=== PATIENT | female | born 1970 | race Caucasian/White ===

== ENCOUNTER 2021-08-03 07:15 | Inpatient (IN) ==
--- NOTE | 2021-07-28 12:24 | Anesthesiology Consultation ---
Date of Service July 28, 2021 Assessment & Plan (1) Encounter for pre-operative examination: Chart Review Chart Review: Acceptable Risk for Surgery (pending preop Covid testing results ) and Patient NOT seen in Pre Admission Testing - Check BSG AM DOS Per nursing assessment 07/28/2021, patient denies any recent travel. No known Covid infection in the past 90 days. Patient is vaccinated for Covid. No known Covid positive contacts or Covid related symptoms. Preop Covid testing scheduled 08/01/21= will await results Left breast partial mastectomy 07/18/2021 = done under [facility] with LMA #4. Left breast biopsy with needle localization 07/04/2021 = done under [facility] with LMA #5. History Surgery Operation Date: 08/03/21 10:10 Proposed Procedures p Bilateral Breast Mastectomy with Left [place] Lymph Node Biopsy, Possible Left Axillary Dissection (NM Injection and Scan 0800) - Edvin Degroot, DO Height/Weight Height: 5 ft 4 in Weight: 89.811 kg Allergies Allergy/AdvReac Type Severity Reaction Status Date / Time ibuprofen Allergy Severe Anaphylaxis Verified 07/28/21 09:25 clavulanic acid Allergy Intermediate Hives Verified 07/28/21 09:25 Sulfa (Sulfonamide Allergy Intermediate HIVES Verified 07/28/21 09:25 Antibiotics) sulfamethoxazole Allergy Intermediate HIVES Verified 07/28/21 09:25 trimethoprim Allergy Intermediate HIVES Verified 07/28/21 09:25 metformin Allergy Mild Diarrhea Verified 07/28/21 09:25 Penicillins Allergy Mild Rash Verified 07/28/21 09:25 Medications Home Medications Medication Instructions Recorded Confirmed Last Taken ezetimibe 10 mg tablet 10 mg PO QAM 05/22/21 07/28/21 07/18/21 08:00 insulin lispro 100 unit/mL 5 unit SUBCUT QAM 05/22/21 07/28/21 07/17/21 subcutaneous pen (Humalog KwikPen (U-100) Insulin) levothyroxine 50 mcg tablet 50 mcg PO QAM 05/22/21 07/28/21 07/18/21 08:00 linagliptin 5 mg tablet (Tradjenta) 5 mg PO QAM 05/22/21 07/28/21 07/18/21 08:00 losartan 100 mg tablet 100 mg PO QAM 07/10/3107/28/21 07/18/21 08:00 lovastatin 40 mg tablet 40 mg PO HS 05/22/21 07/28/21 07/17/21 montelukast 10 mg tablet 10 mg PO HS 05/22/21 07/28/21 07/17/21 pantoprazole 40 mg tablet,delayed 40 mg PO QAM 05/22/21 07/28/21 07/18/21 08:00 release paroxetine HCl 10 mg tablet 10 mg PO QAM 05/22/21 07/28/21 07/18/21 08:00 paroxetine HCl 40 mg tablet 40 mg PO QAM 05/22/21 07/28/21 07/18/21 08:00 pregabalin 150 mg capsule 150 mg PO TID 05/22/21 07/28/21 07/18/21 08:00 ropinirole 0.5 mg tablet 0.5 mg PO 05/22/21 07/28/21 07/17/21 albuterol sulfate 2.5 mg INHALATION Q4H PRN 05/24/21 07/28/21 Unknown aspirin 81 mg tablet,delayed 81 mg PO QA 05/24/21 07/28/21 07/18/21 08:00 release loratadine 10 mg capsule 10 mg PO QA 05/24/21 07/28/21 07/18/21 08:00 albuterol sulfate 90 mcg/actuation 2 puff INHALATION QID PRN 06/23/21 07/28/21 Unknown aerosol inhaler oxycodone 5 mg tablet 5 - 10 mg PO Q4H #15 tab 07/18/21 07/28/21 Unknown insulin detemir U-100 100 unit/mL 25 unit SUBCUT [facility] 07/28/21 07/28/21 Unknown subcutaneous solution (Levemir U-100 Insulin) Past Medical History Medical History Allergic rhinitis Asthma LAST USED INHLAER>6 MONTHS AGO Atypical ductal hyperplasia of left breast plan to do bilateral mastectomy Depression Diabetes mellitus, type 2 Fatty liver Fibromyalgia GERD (gastroesophageal reflux disease) Hx of seizure disorder LAST EPISODE 2005 (NO NEUROLOGIST) Hyperlipidemia Hypertension Hypothyroidism IBS (irritable bowel syndrome) Restless leg syndrome Temporomandibular joint disorder NO LOCKING Past Family History Family History Mother Breast cancer Grandmother (Maternal) Breast cancer Father Diabetes Heart disease Hypertension Other No family history of adverse response to anesthesia Past Surgical History Surgical History Amputated toe LEFT FOOT SMALL TOE R/T INFECTION H/O breast surgery left 11/11/2013 benign/clip placement H/O sinus surgery MULTIPLE TIMES History of arthroscopy RT KNEE History of cardiac cath 25 YEARS AGO (NO STENTS) History of carpal tunnel surgery LEFT/RT History of colonoscopy History of esophagogastroduodenoscopy (EGD) History of hysterectomy History of partial mastectomy of left breast (07/18/21) Left Breast Partial Mastectomy Dr. Degroot 07-18-2021 History of tooth extraction Hx of elbow surgery RT/LEFT ULNAR NERVE RELEASE S/P breast biopsy, left (07/04/21) Left Breast Biopsy with Wire Localization(Left) - Edvin Degroot, DO Social History Smoking Status: Never smoker Do You Dip or Chew Tobacco: No Hx Alcohol Use: No Alcohol type: wine alcohol intake frequency: holidays/special occasions only Hx Substance Use: No substance use type: does not use Lab Results Anesthesia Preop Results Results Anesthesia Widget: WBC 11.95 K/uL (4.8-10.8) H 06/21/21 Hgb 16.3 g/dL (12.0-16.0) H 06/21/21 Hct 46.6 % (37-47) 06/21/21 Plt 299 K/uL (130-400) 06/21/21 Na 135 mmol/L (136-145) L 06/21/21 K 4.1 mmol/L (3.5-5.1) 06/21/21 Cl 105 mmol/L (98-107) 06/21/21 CO2 25 mmol/L (21-32) 06/21/21 BUN 11 mg/dl (7-18) 06/21/21 Creat 0.75 mg/dl (0.6-1.2) 06/21/21 Glucose Level 331 mg/dl (70-99) H* 06/21/21 POC Glucose 260 mg/dl (70-99) H 07/18/21 Testing Laboratory Results -Glucose ranging 189-296 from 07/04/21 to 07/18/21 Pt with hyperglycemia- patient has had recent left partial mastectomy and left needle localization biopsy without issues- per previous anesthesia consultations- glucose will need monitored closely during perioperative period Electrocardiogram Date: 06/21/21 Findings: + NSR @ (89 bpm)
[~2021-08-03 07:15] MED LIST: LACTATED RINGER'S 1,000 ML IV SCH; LR 15ML/HR IV SCH; ceFAZolin 2000MG 2,000 MG/15 ML SYR IV SCH
--- NOTE | 2021-08-03 10:06 | Nuclear Medicine Report ---
LYMPHOSCINTIGRAPHY CLINICAL HISTORY: Left breast cancer. PROCEDURE: Using standard sterile technique, 5 intradermal injections of 0.51 mCi of Lymphoseek was p laced in the left breast. The patient tolerated the procedure well. There were no immediate complicat ions. The patient was subsequently transported to the surgical suite. No imaging was obtained at the referring physician's request. IMPRESSION: Injection of 2.55 mCi of Lymphoseek in the left breast. ACT 112: Negative or not required by law. Electronically signed by: Ruben Tinsley M.D. 08/03/2021 10:05 AM
[2021-08-03] MEDS ORDERED: LIDOCAINE 2% 2 ML VIAL/AMP(20MG/ML) INFIL ONE (10:11)
[2021-08-03] MEDS ORDERED: ONDANSETRON INJ 2 MG/ML 2 ML VIAL ONE ×2 (10:11→12:46)
[2021-08-03] MEDS ORDERED: PROPOFOL IV EMULSION 10 MG/ML 20 ML VIAL IV ONE (10:11)
[2021-08-03] MEDS ORDERED: DEXAMETHASONE SOD INJ 4 MG/ML VIAL ONE (10:11)
[2021-08-03] MEDS ORDERED: MIDAZOLAM HCL 1 MG/ML 2ML VIAL ONE (10:12)
[2021-08-03] MEDS ORDERED: fentaNYL citrate 100 MCG/2 ML VIAL ONE (10:12)
[2021-08-03] MEDS ORDERED: INSULIN ASPART PER UNIT SC STA (10:32)
[2021-08-03] MEDS ORDERED: HYDROmorphone INJ 1 MG/ML SYRINGE IV PRN (10:52)
[2021-08-03] MEDS ORDERED: ePHEDrine sulfate 50 MG/ML AMP IV PRN (10:52)
[2021-08-03] MEDS ORDERED: fentaNYL citrate 100 MCG/2 ML VIAL IV PRN (10:52)
[2021-08-03] MEDS ORDERED: ATROPINE SULFATE 0.1 MG/ML 10ML SYR IV PRN (10:52)
[2021-08-03] MEDS ORDERED: ONDANSETRON INJ 2 MG/ML 2 ML VIAL IV PRN ×2 (10:52→17:24)
[2021-08-03] MEDS ORDERED: BUPIVACAINE 0.25% 30 ML VIAL ONE (10:57)
--- NOTE | 2021-08-03 11:15 | History & Physical Bridge Note ---
Date of Service August 03, 2021 History & Physical Bridge Note I have examined the patient, reviewed the History & Physical and in the interval since the performance of the History & Physical I have noted the following changes of clinical significance: no changes noted
[2021-08-03] MEDS ORDERED: PHENYLEPHRINE 100MCG/ML 5ML SYR ONE ×2 (12:46→13:29)
[2021-08-03] MEDS ORDERED: HYDROmorphone INJ 2 MG/ML SYR/VIAL ONE (13:21)
[2021-08-03] MEDS ORDERED: EPINEPHrine INJ 1 MG/ML AMP INJ ONE (14:25)
[2021-08-03] MEDS ORDERED: ROCURONIUM BROMIDE 10 MG/ML 5 ML VIAL IV ONE (14:29)
[2021-08-03] MEDS ORDERED: GLYCOPYRROLATE 0.2 MG/ML VIAL ONE (14:29)
[2021-08-03] MEDS ORDERED: NEOSTIGMINE METHYLSULFATE 1 MG/ML 10ML VIAL ONE (14:29)
--- NOTE | 2021-08-03 15:00 | Post Operative Brief Note ---
PG Immediate Post Op with CF Date of Surgery August 03, 2021 Pre & Post Diagnosis Operation Date: 08/03/21 11:10 Pre-Op Diagnosis: Ductal Carcinoma in Situ of Left Breast Post-Op Diagnosis: Ductal Carcinoma in Situ of Left Breast I identified the patient and participated in the time-out.: Yes Procedure Operation Date: 08/03/21 11:10 Actual Procedures p Bilateral Breast Mastectomy with Left [place] Lymph Node Biopsy(Bilateral) - Edvin Degroot DO Surgeon Edvin Degroot DO [employer] Milton Cardoso PA-C Estimated Blood Loss 100 Findings Consistent with Post-Op Diagnosis Specimens Specimen Description: Fresh A. Right breast; long silk lateral, short silk superior. Out of body at 1242, sent to lab at 1248. B. Left Breast; long silk lateral, short silk superior. Out of body at 1356, sent to lab at 1401. C. Left Axillary [place] Lymph Node Biopsy; sent to lab at 1401. D. Left Axillary [place] Lymph Node Biopsy #2; sent to lab at 1414. Drains Edvin Drain (bilateral breast) Anesthesia Type General Complications none Disposition Disposition: Recovery Room
--- NOTE | 2021-08-03 15:02 | Operative Report ---
PG Post Operative Report Pre & Post Diagnosis Operation Date: 08/03/21 11:10 Pre-Op Diagnosis: Ductal Carcinoma in Situ of Left Breast Post-Op Diagnosis: Ductal Carcinoma in Situ of Left Breast I identified the patient and participated in the time-out.: Yes Procedure Operation Date: 08/03/21 11:10 Actual Procedures p Bilateral Breast Mastectomy with Left [place] Lymph Node Biopsy(Bilateral) - Edvin Degroot DO Surgeon Edvin Degroot DO Supervisor Finishing Milton Cardoso PA-C Estimated Blood Loss 100 Findings Consistent with Post-Op Diagnosis Specimens Specimen Description: Fresh A. Right breast; long silk lateral, short silk superior. B. Left Breast; long silk lateral, short silk superior. C. Left Axillary [place] Lymph Node Biopsy, Blue and Hot 132 D. Left Axillary [place] Lymph Node Biopsy #2, Blue and Hot 43 Drains 19 Fr Edvin drain in both mastectomy sites Anesthesia Type General Complications none Disposition Disposition: Recovery Room Indications 51 yo female with strong family history of breast cancer, DCIS of left breast with positive margins on lumpectomy Description of Procedure The patient was brought to the OR and placed in the supine position with both arms abducted. At this time she underwent general endotracheal anesthesia without any problems. She was given appropriate pre-operative antibiotics. Lymphazurin was injected in a periareolar manner in the left breast prior to skin prep. Her bilateral chest and left axilla were prepped and draped in the usual sterile fashion. Timeout was called. The procedure was verified as Bilateral Total Mastectomy with Left axillary sentinel lymph node biopsy. Surgical, anesthesia and nursing teams agreed and the procedure was begun. A transverse elliptical incision was made on the right breast to include the nipple areolar complex. This was carried down the the subcutaneous tissue with electrocautery. At this point skin flaps were raised with electrocautery superiorly to the clavicle, medially to the sternum, inferiorly to the inframammary fold, and laterally to the latissimus. The breast tissue was then removed from the pectoralis major muscle along the with fascia. The breast was then transected laterally and sent of as specimen. At this point the left breast was removed in the same manner as the right breast. Then our attention was turned to the left axilla for the sentinel lymph node biopsy. The neoprobe was placed into the axilla and a hot and blue node was found and count was 132. This was excised sharply and sent as specimen. At this point one other lymph nodes was found using the neoprobe. Second was hot but and blue and count was 43. Placing the neoprobe in the axilla at this point revealed a count of 2. At this time the incisions were irrigated until clear. Hemostasis was achieved using electrocautery. Hemostasis was complete. A #19 [place] Edvin drain was introduced through a stab incision laterally on the lower skin flap of each incision. They were placed along the inferior and superior skin flap. At this time the incisions were closed using 3-0 Vicryl suture at the deep dermal layer and 4-0 Monocryl in a running subcutaneous fashion in the skin. Dermabond Prineo dressing was applied. Sterile dressing was then placed over this and surgical bra. The patient was then awakened from anesthesia and extubated having remained stable throughout the entire case. Needle and sponge count were correct x 2. The physician's chiropractor assistant was present and scrubbed for the entire case. He was essential for positioning, prepping and draping the patient, retraction and exposure, closure of the incision and placement of the dressings. I attest to the content of the Intraoperative Record and any orders documented therein. Any exceptions are noted below.
--- NOTE | 2021-08-03 15:23 | XRay Report ---
XR chest 1V portable INDICATION: MN ^Y ^WRONG COUNT ^EXTRA COUNT/WRONG COUNT. TECHNIQUE: Single frontal radiograph of the chest was obtained. Comparison: None available at the time of this dictation. FINDINGS: Endotracheal tube is seen with the tip 47 mm from the manasa. Bilateral drains are seen over the ches t. No radiodense foreign bodies seen. The cardiomediastinal silhouette is normal. The lungs are clear . No evidence of pleural effusion or pneumothorax. IMPRESSION: No radiodense foreign bodies apart from endotracheal tube and bilateral drains. ACT 112: Negative or not required by law. Electronically signed by: Ruben Tinsley M.D. 08/03/2021 3:22 PM
--- NOTE | 2021-08-03 15:57 | Anesthesiology Progress Note ---
Date of Service August 03, 2021 Anesthesia Post Procedure Vital Signs Vital Signs: Temp Pulse Resp BP Pulse Ox 08/03/21 15:50 108 H 18 133/77 95 08/03/21 15:40 106 H 18 127/78 99 08/03/21 15:33 36.4 C L 102 H 20 143/71 H 99 08/03/21 10:03 36.6 C 93 H 20 142/76 H 96 Transfer of Care Handoff Completed per policy Notes Mental Status: alert / awake / arousable and participated in evaluation Patient Amnestic to Procedure: Yes Nausea / Vomiting: adequately controlled Pain: adequately controlled Airway Patency, RR, SpO2: stable & adequate BP & HR: stable & adequate Hydration State: stable & adequate Anesthetic Complications: no major complications apparent and Pt Satisfied with anesthetic care
[2021-08-03] MEDS ORDERED: MoRPHine SULFATE 2 MG/ML CARP IV PRN (17:24)
[2021-08-03] MEDS ORDERED: GLUCOSE 40% GEL 15 GM TUBE PO PRN (17:24)
[2021-08-03] MEDS ORDERED: ALBUTEROL 0.083% NEBU SOLN 3 ML VIAL INH PRN (17:24)
[2021-08-03] MEDS ORDERED: GLUCAGON FOR INJ 1 MG VIAL SQ PRN (17:24)
[2021-08-03] MEDS ORDERED: CARBOHYDRATES FOR HYPOGLYCEMIA PO PRN (17:24)
[2021-08-03] MEDS ORDERED: DEXTROSE 50% 50 ML SYRINGE IV PRN (17:24)
[2021-08-03] MEDS ORDERED: MoRPHine SULFATE 4 MG/ML 1 ML CARP\\VIAL IV PRN (17:24)
[2021-08-03] MEDS ORDERED: GLUCOSE 10 TABS/TUBE PO PRN (17:24)
[2021-08-03] MEDS ORDERED: ALBUTEROL HFA 8 GM INHALER INH PRN (17:24)
[2021-08-03] MEDS: oxyCODONE HCL IR 5 MG TAB (IMMEDIATE RELEASE) PO PRN (18:01)
[2021-08-03] MEDS ORDERED: Nursing to Pharmacy Communication SCH (18:15)
[2021-08-03] MEDS ORDERED: LACTATED RINGER'S 1,000 ML IV SCH (18:15)
--- NOTE | 2021-08-03 18:19 | Hospitalist Consultation ---
Date of Consultation August 03, 2021 Assessment & Plan (1) Ductal carcinoma in situ (DCIS) of left breast: s/p prophylactic bilateral mastectomy and ln biopsy 08/03/21 Dr Degroot patient had initial ductal carcinoma in situ in her left breast decision for prophylactic mastectomy was made after discussion in the office post op labs not checked yet will be checked in am blood pressure is stable (2) Diabetes: will be on basal bolus insulin, glycemic management consult hold Tradjenta pt did not take typical am Levemir this am, discussed with pharmacy will give long-acting insulin tonight and resume her long-acting insulin in the morning (3) Hypertension: continue losartan (4) Chronic depression: paroxetine continues (5) Asthma: stable with albuterol and singulair (6) Hypothyroidism: continue levothyroxine (7) DVT prophylaxis: Patient has sCDs in place certainly chemoprophylaxis would be indicated if she is a more prolonged hospital stay and after hemostasis is assured History of Present Illness Attending Physician: Edvin Degroot, DO History of Present Illness 51 F s/p B/L mastectomy and sentinel node biopsy for atypical ductal hyperplasia. Pt has a history of diabetes and htn. Depression and asthma. Patient initially presented to general surgery after abnormal mammogram in May 2021. Patient had an excisional biopsy found to have atypical ductal hyperplasia recommendation for further excision of the abnormal tissue of the left breast and then in July 04 she underwent breast biopsy with needle localization those results revealed ductal carcinoma in situ patient had persistent positive margins despite 2 surgeries and decision was made to perform a bilateral mastectomy prophylactically given strong family history. Patient would likely still need to have oncological follow-up when she is healed she usually is on basal bolus insulin pus tradjenta for her diabetes losartan for htn and secondary to protect renal function with her diabetes albuterol and Singulair for her asthma paroxetine for depression she is stable post operatively Allergies Allergy/AdvReac Type Severity Reaction Status Date / Time ibuprofen Allergy Severe Anaphylaxis Verified 08/03/21 10:23 clavulanic acid Allergy Intermediate Hives Verified 08/03/21 10:23 Sulfa (Sulfonamide Allergy Intermediate HIVES Verified 08/03/21 10:23 Antibiotics) sulfamethoxazole Allergy Intermediate HIVES Verified 08/03/21 10:23 trimethoprim Allergy Intermediate HIVES Verified 08/03/21 10:23 metformin Allergy Mild Diarrhea Verified 08/03/21 10:23 Penicillins Allergy Mild Rash Verified 08/03/21 10:23 Home Medications Medication Instructions Recorded Confirmed Type ezetimibe 10 mg tablet 10 mg PO QAM 05/22/21 08/03/21 History insulin lispro 100 unit/mL 5 unit SUBCUT QAM 05/22/21 08/03/21 History subcutaneous pen (Humalog KwikPen (U-100) Insulin) levothyroxine 50 mcg tablet 50 mcg PO QAM 05/22/21 08/03/21 History linagliptin 5 mg tablet (Tradjenta) 5 mg PO QAM 05/22/21 08/03/21 History losartan 100 mg tablet 100 mg PO QAM 05/22/21 08/03/21 History lovastatin 40 mg tablet 40 mg PO HS 05/22/21 08/03/21 History montelukast 10 mg tablet 10 mg PO HS 05/22/21 08/03/21 History pantoprazole 40 mg tablet,delayed 40 mg PO QAM 05/22/21 08/03/21 History release paroxetine HCl 10 mg tablet 10 mg PO QAM 05/22/21 08/03/21 History paroxetine HCl 40 mg tablet 40 mg PO QAM 05/22/21 08/03/21 History pregabalin 150 mg capsule 150 mg PO TID 05/22/21 08/03/21 History ropinirole 0.5 mg tablet 0.5 mg PO HS 05/22/21 08/03/21 History albuterol sulfate 2.5 mg INHALATION Q4H PRN 05/24/21 08/03/21 History aspirin 81 mg tablet,delayed 81 mg PO QAM 05/24/21 08/03/21 History release loratadine 10 mg capsule 10 mg PO QAM 05/24/21 08/03/21 History albuterol sulfate 90 mcg/actuation 2 puff INHALATION QID PRN 06/23/21 08/03/21 History aerosol inhaler oxycodone 5 mg tablet 5 - 10 mg PO Q4H #15 tab 07/18/21 08/03/21 Rx insulin detemir U-100 100 unit/mL 25 unit SUBCUT QAM 07/28/21 08/03/21 History subcutaneous solution (Levemir U-100 Insulin) Patient History Medical History (Updated 08/03/21 @ 18:45 by Alexander Ziegler MD) Allergic rhinitis Asthma LAST USED INHLAER>6 MONTHS AGO Atypical ductal hyperplasia of left breast plan to do bilateral mastectomy Depression Diabetes mellitus, type 2 Fatty liver Fibromyalgia GERD (gastroesophageal reflux disease) Hx of seizure disorder LAST EPISODE 2005 (NO NEUROLOGIST) Hyperlipidemia Hypertension Hypothyroidism IBS (irritable bowel syndrome) Restless leg syndrome Temporomandibular joint disorder NO LOCKING Surgical History Amputated toe LEFT FOOT SMALL TOE R/T INFECTION H/O breast surgery left 11/11/2013 benign/clip placement H/O sinus surgery MULTIPLE TIMES History of arthroscopy RT KNEE History of cardiac cath 25 YEARS AGO (NO STENTS) History of carpal tunnel surgery LEFT/RT History of colonoscopy History of esophagogastroduodenoscopy (EGD) History of hysterectomy History of partial mastectomy of left breast (07/18/21) Left Breast Partial Mastectomy Dr. Degroot 07-18-2021 History of tooth extraction Hx of elbow surgery RT/LEFT ULNAR NERVE RELEASE S/P breast biopsy, left (07/04/21) Left Breast Biopsy with Wire Localization(Left) - Edvin Degroot, Family History Mother Breast cancer Grandmother (Maternal) Breast cancer Father Diabetes Heart disease Hypertension Other No family history of adverse response to anesthesia Social History Smoking Status: Never smoker Second Hand Exposure: No; Do You Dip or Chew Tobacco: No; Tobacco Cessation Education Requested by Patient: No Hx Alcohol Use: No Hx Substance Use: No Preferred Language: Kazakh Communication Ability: Effective Landscape Specialist Required: No Beliefs That Will Affect Care: None marital status: Current Living Situation: Spouse current occupational status: disabled Other Information That Helps Us Care for You: No Feels Safe at Home: Yes Safety Concerns: Feels Safe At This Time Assistive Devices: None Review of Systems Review of Systems: Moderate distress due to chest wall pain and fatigue no headache, no visual changes no speech or swallowing issues Pleuritic chest wall pain, no chest pressure or palpitations no shortness of breath, cough or wheezes no abdominal pain, nausea or vomiting, diarrhea or constipation no dysuria, hematuria or frequency no focal joint pain or swelling no back pain, CVA tenderness or radicular pain Patient has bandages on her surgical sites no focal signs of weakness or numbness or altered sensation no complaints of anxiety or depression.. Physical Exam Physical Exam: The patient appeared well nourished and normally developed. Vital signs as documented. Head exam is normocephalic atraumatic Neck is without JVD, thyromegaly, or carotid bruits. Lungs are clear to auscultation, no focal loss of breath sounds Cardiac exam, Rhythm is regular.. No murmurs, rubs or gallops. Abdominal exam reveals normal bowel sounds, soft non tender, no masses Extremities are nonedematous and both pedal pulses are present Neurologic exam is alert and oriented, no focal loss of strength or sensation Psychologically is without concerns for anxiety or depression Results & Data Results & Data ([facility]) Vital Signs (Past 12 Hours) Vital Signs Temp Pulse Resp BP Pulse Ox 08/03/21 17:46 97.9 F 104 H 16 137/75 95 08/03/21 17:15 97.7 F 111 H 16 145/73 H 94 08/03/21 16:45 110 H 16 142/73 H 94 08/03/21 16:30 109 H 16 148/74 H 94 08/03/21 16:20 97.5 F L 108 H 16 143/72 H 96 08/03/21 16:10 108 H 18 155/68 H 95 08/03/21 16:00 106 H 18 134/74 95 08/03/21 15:50 108 H 18 133/77 95 08/03/21 15:40 106 H 18 127/78 99 08/03/21 15:33 97.5 F L 102 H 20 143/71 H 99 08/03/21 10:03 97.9 F 93 H 20 142/76 H 96 PG Care Time/CCT Total # of Minutes Spent Total Time Spent with Patient: Total time spent is greater than 50% in coordination of care (as documented) at patient's floor/unit and/or counseling patient: Coding Level of Care Code 47939 Inpt Consult Level 3 Diagnoses Ductal carcinoma in situ (DCIS) of left breast D05.12 Diabetes E11.9 Hypertension I10 Chronic depression F32.9 Asthma J45.909 Hypothyroidism E03.9 DVT prophylaxis Z29.9
[2021-08-03] MEDS ORDERED: PHARMACY GLYCEMIC MGMT CONSULT PRN (18:26)
[2021-08-03] MEDS: INSULIN ASPART 100 UNITS/ML 3 ML PEN SC SCH ×2 (18:29→20:48)
[2021-08-03] MEDS ORDERED: INSULIN GLARGINE SOLOSTAR 100 UNITS/ML 3 ML PEN SC STA (19:01)
--- NOTE | 2021-08-03 19:38 | Pharmacy Report ---
Pharmacy Glycemic Short Note 2 - Date of Service August 03, 2021 - Glycemic Short BSG Results (Last 24 hours): 08/03/21 08/03/21 08/03/21 09:55 09:57 12:02 POC Glucose 331 H* 319 H* 311 H* 08/03/21 08/03/21 08/03/21 12:30 13:12 15:36 POC Glucose 256 H 280 H 203 H 08/03/21 17:43 POC Glucose 267 H OUTPATIENT ANTIDIABETIC REGIMEN: * Levemir 25 units qam * Humalog 5 units qam * Tradjenta 5mg qam ASSESSMENT: * Patient s/p B/L mastectomy and sentinel node biopsy * Provider and RN confirmed with patient that she did not take her levemir this morning. Patient did tolerate a clear liquid diet for dinner * RN confirmed that dexamethasone was not given in the OR * Will administer home basal dose X 1 tonight with a moderate stress novolog scale and monitor BSG trends with overnight checks PLAN FOR INPATIENT GLYCEMIC CONTROL: * Hold outpatient oral diabetes medications * Basal insulin * Lantus 25 units SQ X 1 * Bolus insulin * NovoLog per scale ACHS or Q6hrs while NPO * Goal Range: Low 110 mg/dL - High 140 mg/dL * Correction Factor: 20 mg/dL/unit * Nutritional / Prandial insulin per carb ratio of 1 unit per 9 grams CHO consumed PLAN FOR DISCHARGE: *
[2021-08-03] MEDS: PREGABALIN 150 MG CAP PO SCH (20:22)
[2021-08-03] MEDS: rOPINIRole HCL 0.25 MG TABLET PO SCH (20:23)
[2021-08-03] MEDS: MONTELUKAST SODIUM 10 MG TABLET PO SCH (20:23)
[2021-08-04] MEDS ORDERED: PROMETHAZINE HCL 12.5 MG in SODIUM CHLORIDE 0.9% 50 ML IV STA (00:53)
[2021-08-04] MEDS: ACETAMINOPHEN 325 MG TAB PO PRN (02:24)
[2021-08-04 02:44] LABS: Hematocrit (blood only) 36.2 % (37-47); Hemoglobin 12.2 g/dL (12.0-16.0)
--- NOTE | 2021-08-04 03:20 | Communication Note ---
Date of Service: August 04, 2021 I was notified by nursing that patient had persistently elevated blood glucose levels. Patient's chart was reviewed and hospitalist consultation has been obtained along with a glycemic consult by pharmacy. I did discuss with the radar engineer pharmacist and he has attempted to cover the patient with sliding scale insulin however due to patient's persistent elevated glucose he feels an insulin drip is now required which is in the process of being initiated. Nursing also noted the patient had an episode of hypotension and has tachycardia. Patient was visited at the bedside at the present time she denies any shortness of breath or chest pain. She does feel somewhat weak. Patient drains were examined and she has some serosanguineous drainage from each drain. Repeat hemoglobin and hematocrit was performed. Hemoglobin and hematocrit were noted to be 12.2 and 36.2. Does not appear the patient is actively bleeding at this time. Her tachycardia and hypotension could be multifactorial from recent surgical procedure as well as some acute blood loss. Her hyperglycemia could also be contributing to this. We will continue to monitor her closely.
[2021-08-04] MEDS ORDERED: STAT IV Infusion **Titration per Protocol STA (03:28)
[2021-08-04] MEDS ORDERED: INSULIN HUMAN REGULAR IV BOLUS 3.5 UNITS in SYRINGE 0 ML IV ONE (03:30)
[2021-08-04] MEDS ORDERED: INSULIN REGULAR 250 UNITS in SODIUM CHLORIDE 0.9% 247.5 ML IV SCH (03:30)
[2021-08-04 03:44] LABS: Beta-Hydroxybutyrate 2.41 mg/dl (0.2-2.81)
[2021-08-04] MEDS: PANTOprazole 40 MG TAB PO SCH (07:25)
[2021-08-04] MEDS: PARoxetine HCL 10 MG TAB PO SCH (07:25)
[2021-08-04] MEDS: LORATADINE 10 MG TAB PO SCH (07:25)
[2021-08-04] MEDS: ASPIRIN 81 MG ECTAB PO SCH (07:25)
[2021-08-04] MEDS: LEVOTHYROXINE SODIUM 50 MCG TABLET PO SCH (07:25)
[2021-08-04] MEDS: PREGABALIN 150 MG CAP PO SCH ×3 (07:27→21:04)
[2021-08-04] MEDS: oxyCODONE HCL IR 5 MG TAB (IMMEDIATE RELEASE) PO PRN ×2 (07:27→23:24)
[2021-08-04] MEDS ORDERED: INSULIN ASPART 100 UNITS/ML 3 ML PEN SC SCH ×2 (07:30)
[2021-08-04 07:36] LABS: Basophils # (auto) 0.01 K/uL (0-0.2); Hematocrit (blood only) 35.7 % (37-47); Hemoglobin 11.9 g/dL (12.0-16.0); Immature Granulocytes # (auto) 0.11 K/uL (0.00-0.02); Immature Granulocytes % (auto) 0.5 %; Lymphocytes # (auto) 1.92 K/uL (1.2-3.4); Lymphocytes % (auto) 8.9 %; Mean Corpuscular Hemoglobin 29.6 pg (25-34); Mean Corpuscular Hgb Conc 33.3 g/dL (32-36); Mean Corpuscular Volume 88.8 fL (80-100); Monocytes # (auto) 2.06 K/uL (0.11-0.59); Monocytes % (auto) 9.5 %; Neutrophils # (auto) 17.49 K/uL (1.4-6.5); Neutrophils % (auto) 81.1 %; Platelet Count 289 K/uL (130-400); RDW Coefficient of Variation 12.9 % (11.5-14.5); RDW Standard Deviation 41.7 fL (36.4-46.3); Red Blood Count 4.02 M/uL (4.2-5.4); White Blood Count 21.59 K/uL (4.8-10.8)
[2021-08-04] MEDS ORDERED: INSULIN GLARGINE SOLOSTAR 100 UNITS/ML 3 ML PEN SC ONE ×2 (08:00→13:00)
[2021-08-04] MEDS: LACTATED RINGER'S 1,000 ML IV SCH ×2 (08:11→18:11)
--- NOTE | 2021-08-04 08:17 | Hospitalist Progress Note ---
Date of Service August 04, 2021 Assessment & Plan (1) Hematoma: Plan: POD# 1 s/p bilateral mastectomy with Dr Degroot. Pre-op hgb 16.3 --> 12.2 --> 11.9 developed hypotension/tachycardia overnight with lightheadedness/dizziness IVF bolus provided, increased IVF rate to 100cc/hr Increased APRIL output and hematoma to L breast Taken back to OR this morning with Dr Degroot for evacuation of LEFT BREAST hematoma, stop of small arterial bleeder seen inferiorly within the pectoralis muscle as well as placement of new jomar drain to L side Given ancef for abx pre-op but discussed with surgery and they plan on a couple of weeks of Keflex given prior infection but suspected elevated WBC (21.5k) from stress/bleeding/surgery and no concerns for infections at this time Procalcitonin pending --> ELEVATED AT 5.7. Continuing on Ancef Of note, BSGs elevated overnight and patient was placed on insulin gtt (hadn't taken her AM insulin prior to surgery) with improvement of sugars. Continues on insulin gtt and pharmacy on consult. Continue to monitor BP 94/57 currently and asked RN to provide additional IVF bolus but if remains hypotensive will consider moving to med-[facility] for closer monitoring Continue to monitor blood counts (2) Acute blood loss anemia: Plan: 2nd to sugery and hematoma as above repeat hgb 10.6/32 from hgb 11.9 but has also received multiple IVF bolus as well Iron checked -- low at 18. Ordered IV Venofer x 1 now. Would repeat tomorrow and have f/u heme-onc for 3rd dose if d/c tomorrow however suspect patient could complete course while inpatient Continue to monitor APRIL output/blood counts closely CBC in AM (3) Tachycardia: Plan: 2nd to bleeding/pain/iron deficiency anemia no sob/cp reported given 2.5mg metoprolol for elevated HR but currently 122bpm (regular) Giving additional IVF bolus for hypotension but considering moving to monitored bed for closer monitoring (4) Hypotension: Plan: IVF bolus as above, increased maintenence fluids Continue to monitor (5) Ductal carcinoma in situ (DCIS) of left breast: Plan: POD 1 s/p prophylactic bilateral mastectomy and ln biopsy 08/03/21 Dr Degroot patient had initial ductal carcinoma in situ in her left breast decision for prophylactic mastectomy was made after discussion in the office See above regarding post-op hematoma/hypotension/tachycardia (6) Diabetes: Plan: will be on basal bolus insulin, glycemic management consult hold Tradjenta pt did not take typical am Levemir AM prior to surgery A1c elevated to 12.9 Placed on insulin gtt overnight for persistently elevated BSGs up to 447 around 2AM Pharmacy on consult Sugars still elevated but improved slightly -- discussed given continued elevation and just given additional 10u b-hydroxybuytrate not elevated, no kussmal breathing or acidosis on labs IVF as above Consulted primary special educator Continue to monitor (7) Hypertension: Plan: continue losartan --> HOLDING for hypotension Continue to monitor (8) Chronic depression: Plan: paroxetine continues (9) Asthma: Plan: stable with albuterol and singulair stable on room air (but placed on O2 for comfort) (10) Hypothyroidism: Plan: continue levothyroxine will check TSH in AM (11) DVT prophylaxis: Plan: Patient has sCDs in place certainly chemoprophylaxis would be indicated if she is a more prolonged hospital stay and after hemostasis is assured --> continuing SCDs and avoiding chemoproph in setting of bleeding as above Continued inpatient stay Plan: Changed to full admission as above Continue to follow while inpatient Admission and Anticipated Discharge Date Admission Date: August 03, 2021 Supervising Physician Co-Signing Physician Notes Attending Attestation - Chart reviewed in detail, care plan d/w JORGE Dawson. I agree w/ the quinn components of her documentation. Salbador Craven MD Subjective This morning patient with hypotension/tachycardia after getting up to BSC. IVF bolus given and increased rate to 100cc/hr. Reported lightheadedness/dizziness but no LOC. Urinary retention and garrett placed. Elevated BSGs (improved after being placed on insulin gtt and pharmacy following). Increased pain and APRIL drainage of bloody output -- APRIL 375cc L breast, 120cc R breast. Eval by surgery and taken back to OR for hematoma evacuation and stop of pec major bleed along with placement of new jomar drain to L side. Of note, had episode of 100cc green liquid emesis on arrival to [facility] with BSG 241. Discussed with general surgery and WBC elevation felt to be stress from surgery/blood loss but plans for couple weeks of keflex. Patient returned from PACU to room 376-2 after getting dose of 2.5mg metoprolol for elevated HR. Pain currently controlled. APRIL to L breast with 15cc bloody drainage. Denies lightheadedness/dizziness/chest pain/shortness of breath and is currently 93% on room air. Pain controlled with ordered medications. BP hypotensive with 94/57 with HR 122bpm(regular). Discussed with RN and if patient remain hypotensive after additional bolus and no improvement in HR will consider moving to med-tele. Garrett draining yellow urine. Review of Systems Review of Systems: All systems reviewed & are unremarkable except as noted in HPI & below Physical Exam Physical Exam: well developed, well nourished however very fatigued and just coming back from anesthesia, no acute distress. answering questions appropri ately but falls back asleep quickly. eyes anicteric, pupils equal and reactive trachea midline without deviation neck without JVD resp no accessory muscle use, not tachypneic, clear to auscultation bilaterally, diminished in the bases. 93% on room air chest-- dressing c/d/i, ecchymosis to chest, JPs with bloody drainage, tender to palpation (dressing not removed given recent bleed and just came back from OR) cardiac; regular rhythm but tachycardic with rate 122bpm, no m/r/g appreciated, pulses palpable GI- positive bowel sounds, soft, non-tender, no guarding garrett draining yellow urine Psych alert, oriented but falls asleep frequently from anesthesia Neuro - no focal deficits Results & Data Results & Data ([facility]) Vital Signs (Past 12 Hours) Vital Signs Temp Pulse Pulse Resp BP BP Pulse Ox 08/04/21 08:10 112/69 08/04/21 07:08 36.8 C 124 H 16 91/52 L 99 08/04/21 04:11 130 H 115/81 97 08/04/21 02:05 114/76 08/04/21 01:54 36.5 C 141 H 16 90/63 L 97 08/03/21 22:18 36.6 C 113 H 16 124/81 96 08/03/21 20:17 36.8 C 101 H 20 130/80 97 Laboratory Results 08/04/21 08/04/21 08/04/21 Range/Units 12:55 12:55 12:55 WBC (4.8-10.8) K/uL RBC (4.2-5.4) M/uL Hgb 10.6 L (12.0-16.0) g/dL Hct 32.0 L (37-47) % MCV (80-100) fL MCH (25-34) pg MCHC (32-36) g/dL RDW Std Deviation (36.4-46.3) fL RDW Coeff of Shannon (11.5-14.5) % Plt Count (130-400) K/uL MPV (7.4-10.4) fL Immature Gran % (Auto) % Neut % (Auto) % Lymph % (Auto) % Mckenzie % (Auto) % Eos % (Auto) % Baso % (Auto) % Neut # (Auto) (1.4-6.5) K/uL Lymph # (Auto) (1.2-3.4) K/uL Mckenzie # (Auto) (0.11-0.59) K/uL Eos # (Auto) (0-0.5) K/uL Baso # (Auto) (0-0.2) K/uL Immature Gran # (Auto) (0.00-0.02) K/uL Sodium (136-145) mmol/L Potassium (3.5-5.1) mmol/L Chloride (98-107) mmol/L Carbon Dioxide (21-32) mmol/L Anion Gap (3-11) BUN (7-18) mg/dl Creatinine (0.6-1.2) mg/dl Est Cr Clr Drug Dosing ml/min Est GFR ( Amer) ml/min Est GFR (Non-Af Amer) ml/min BUN/Creatinine Ratio (10-20) Glucose (70-99) mg/dl POC Glucose 272 H (70-99) mg/dl Estimat Average Glucose mg/dl Hemoglobin A1c (4.5-5.6) % Calcium (8.5-10.1) mg/dl Beta-Hydroxybutyric Acd (0.2-2.81) mg/dl Procalcitonin Pending 08/04/21 08/04/21 08/04/21 Range/Units 12:00 09:34 08:44 WBC (4.8-10.8) K/uL RBC (4.2-5.4) M/uL Hgb (12.0-16.0) g/dL Hct (37-47) % MCV (80-100) fL MCH (25-34) pg MCHC (32-36) g/dL RDW Std Deviation (36.4-46.3) fL RDW Coeff of Shannon (11.5-14.5) % Plt Count (130-400) K/uL MPV (7.4-10.4) fL Immature Gran % (Auto) % Neut % (Auto) % Lymph % (Auto) % Mckenzie % (Auto) % Eos % (Auto) % Baso % (Auto) % Neut # (Auto) (1.4-6.5) K/uL Lymph # (Auto) (1.2-3.4) K/uL Mckenzie # (Auto) (0.11-0.59) K/uL Eos # (Auto) (0-0.5) K/uL Baso # (Auto) (0-0.2) K/uL Immature Gran # (Auto) (0.00-0.02) K/uL Sodium (136-145) mmol/L Potassium (3.5-5.1) mmol/L Chloride (98-107) mmol/L Carbon Dioxide (21-32) mmol/L Anion Gap (3-11) BUN (7-18) mg/dl Creatinine (0.6-1.2) mg/dl Est Cr Clr Drug Dosing ml/min Est GFR ( Amer) ml/min Est GFR (Non-Af Amer) ml/min BUN/Creatinine Ratio (10-20) Glucose (70-99) mg/dl POC Glucose 264 H 241 H 232 H (70-99) mg/dl Estimat Average Glucose mg/dl Hemoglobin A1c (4.5-5.6) % Calcium (8.5-10.1) mg/dl Beta-Hydroxybutyric Acd (0.2-2.81) mg/dl Procalcitonin 08/04/21 08/04/21 08/04/21 Range/Units 07:42 06:44 06:15 WBC 21.59 H (4.8-10.8) K/uL RBC 4.02 L (4.2-5.4) M/uL Hgb 11.9 L (12.0-16.0) g/dL Hct 35.7 L (37-47) % MCV 88.8 (80-100) fL MCH 29.6 (25-34) pg MCHC 33.3 (32-36) g/dL RDW Std Deviation 41.7 (36.4-46.3) fL RDW Coeff of Shannon 12.9 (11.5-14.5) % Plt Count 289 (130-400) K/uL MPV 11.0 H (7.4-10.4) fL Immature Gran % (Auto) 0.5 % Neut % (Auto) 81.1 % Lymph % (Auto) 8.9 % Mckenzie % (Auto) 9.5 % Eos % (Auto) 0.0 % Baso % (Auto) 0.0 % Neut # (Auto) 17.49 H (1.4-6.5) K/uL Lymph # (Auto) 1.92 (1.2-3.4) K/uL Mckenzie # (Auto) 2.06 H (0.11-0.59) K/uL Eos # (Auto) 0.00 (0-0.5) K/uL Baso # (Auto) 0.01 (0-0.2) K/uL Immature Gran # (Auto) 0.11 H (0.00-0.02) K/uL Sodium (136-145) mmol/L Potassium (3.5-5.1) mmol/L Chloride (98-107) mmol/L Carbon Dioxide (21-32) mmol/L Anion Gap (3-11) BUN (7-18) mg/dl Creatinine (0.6-1.2) mg/dl Est Cr Clr Drug Dosing ml/min Est GFR ( Amer) ml/min Est GFR (Non-Af Amer) ml/min BUN/Creatinine Ratio (10-20) Glucose (70-99) mg/dl POC Glucose 312 H* 322 H* (70-99) mg/dl Estimat Average Glucose mg/dl Hemoglobin A1c (4.5-5.6) % Calcium (8.5-10.1) mg/dl Beta-Hydroxybutyric Acd (0.2-2.81) mg/dl Procalcitonin 08/04/21 08/04/21 08/04/21 Range/Units 06:15 06:15 05:43 WBC (4.8-10.8) K/uL RBC (4.2-5.4) M/uL Hgb (12.0-16.0) g/dL Hct (37-47) % MCV (80-100) fL MCH (25-34) pg MCHC (32-36) g/dL RDW Std Deviation (36.4-46.3) fL RDW Coeff of Shannon (11.5-14.5) % Plt Count (130-400) K/uL MPV (7.4-10.4) fL Immature Gran % (Auto) % Neut % (Auto) % Lymph % (Auto) % Mckenzie % (Auto) % Eos % (Auto) % Baso % (Auto) % Neut # (Auto) (1.4-6.5) K/uL Lymph # (Auto) (1.2-3.4) K/uL Mckenzie # (Auto) (0.11-0.59) K/uL Eos # (Auto) (0-0.5) K/uL Baso # (Auto) (0-0.2) K/uL Immature Gran # (Auto) (0.00-0.02) K/uL Sodium 138 (136-145) mmol/L Potassium 4.3 (3.5-5.1) mmol/L Chloride 108 H (98-107) mmol/L Carbon Dioxide 23 (21-32) mmol/L Anion Gap 7.0 (3-11) BUN 16 (7-18) mg/dl Creatinine 1.01 (0.6-1.2) mg/dl Est Cr Clr Drug Dosing 69.5 ml/min Est GFR ( Amer) 73.6 ml/min Est GFR (Non-Af Amer) 63.5 ml/min BUN/Creatinine Ratio 15.6 (10-20) Glucose 308 H* (70-99) mg/dl POC Glucose 338 H* (70-99) mg/dl Estimat Average Glucose 324 mg/dl Hemoglobin A1c 12.9 H (4.5-5.6) % Calcium 8.7 (8.5-10.1) mg/dl Beta-Hydroxybutyric Acd 0.72 (0.2-2.81) mg/dl Procalcitonin 08/04/21 08/04/21 08/04/21 Range/Units 04:43 04:41 03:37 WBC (4.8-10.8) K/uL RBC (4.2-5.4) M/uL Hgb (12.0-16.0) g/dL Hct (37-47) % MCV (80-100) fL MCH (25-34) pg MCHC (32-36) g/dL RDW Std Deviation (36.4-46.3) fL RDW Coeff of Shannon (11.5-14.5) % Plt Count (130-400) K/uL MPV (7.4-10.4) fL Immature Gran % (Auto) % Neut % (Auto) % Lymph % (Auto) % Mckenzie % (Auto) % Eos % (Auto) % Baso % (Auto) % Neut # (Auto) (1.4-6.5) K/uL Lymph # (Auto) (1.2-3.4) K/uL Mckenzie # (Auto) (0.11-0.59) K/uL Eos # (Auto) (0-0.5) K/uL Baso # (Auto) (0-0.2) K/uL Immature Gran # (Auto) (0.00-0.02) K/uL Sodium (136-145) mmol/L Potassium (3.5-5.1) mmol/L Chloride (98-107) mmol/L Carbon Dioxide (21-32) mmol/L Anion Gap (3-11) BUN (7-18) mg/dl Creatinine (0.6-1.2) mg/dl Est Cr Clr Drug Dosing ml/min Est GFR ( Amer) ml/min Est GFR (Non-Af Amer) ml/min BUN/Creatinine Ratio (10-20) Glucose (70-99) mg/dl POC Glucose 371 H* 360 H* 368 H* (70-99) mg/dl Estimat Average Glucose mg/dl Hemoglobin A1c (4.5-5.6) % Calcium (8.5-10.1) mg/dl Beta-Hydroxybutyric Acd (0.2-2.81) mg/dl Procalcitonin 08/04/21 08/04/21 08/04/21 Range/Units 02:21 02:21 02:03 WBC (4.8-10.8) K/uL RBC (4.2-5.4) M/uL Hgb 12.2 (12.0-16.0) g/dL Hct 36.2 L (37-47) % MCV (80-100) fL MCH (25-34) pg MCHC (32-36) g/dL RDW Std Deviation (36.4-46.3) fL RDW Coeff of Shannon (11.5-14.5) % Plt Count (130-400) K/uL MPV (7.4-10.4) fL Immature Gran % (Auto) % Neut % (Auto) % Lymph % (Auto) % Mckenzie % (Auto) % Eos % (Auto) % Baso % (Auto) % Neut # (Auto) (1.4-6.5) K/uL Lymph # (Auto) (1.2-3.4) K/uL Mckenzie # (Auto) (0.11-0.59) K/uL Eos # (Auto) (0-0.5) K/uL Baso # (Auto) (0-0.2) K/uL Immature Gran # (Auto) (0.00-0.02) K/uL Sodium (136-145) mmol/L Potassium (3.5-5.1) mmol/L Chloride (98-107) mmol/L Carbon Dioxide (21-32) mmol/L Anion Gap (3-11) BUN (7-18) mg/dl Creatinine (0.6-1.2) mg/dl Est Cr Clr Drug Dosing ml/min Est GFR ( Amer) ml/min Est GFR (Non-Af Amer) ml/min BUN/Creatinine Ratio (10-20) Glucose 428 H* (70-99) mg/dl POC Glucose 413 H* (70-99) mg/dl Estimat Average Glucose mg/dl Hemoglobin A1c (4.5-5.6) % Calcium (8.5-10.1) mg/dl Beta-Hydroxybutyric Acd 2.41 (0.2-2.81) mg/dl Procalcitonin 08/04/21 08/04/21 08/03/21 Range/Units 02:01 01:58 23:58 WBC (4.8-10.8) K/uL RBC (4.2-5.4) M/uL Hgb (12.0-16.0) g/dL Hct (37-47) % MCV (80-100) fL MCH (25-34) pg MCHC (32-36) g/dL RDW Std Deviation (36.4-46.3) fL RDW Coeff of Shannon (11.5-14.5) % Plt Count (130-400) K/uL MPV (7.4-10.4) fL Immature Gran % (Auto) % Neut % (Auto) % Lymph % (Auto) % Mckenzie % (Auto) % Eos % (Auto) % Baso % (Auto) % Neut # (Auto) (1.4-6.5) K/uL Lymph # (Auto) (1.2-3.4) K/uL Mckenzie # (Auto) (0.11-0.59) K/uL Eos # (Auto) (0-0.5) K/uL Baso # (Auto) (0-0.2) K/uL Immature Gran # (Auto) (0.00-0.02) K/uL Sodium (136-145) mmol/L Potassium (3.5-5.1) mmol/L Chloride (98-107) mmol/L Carbon Dioxide (21-32) mmol/L Anion Gap (3-11) BUN (7-18) mg/dl Creatinine (0.6-1.2) mg/dl Est Cr Clr Drug Dosing ml/min Est GFR ( Amer) ml/min Est GFR (Non-Af Amer) ml/min BUN/Creatinine Ratio (10-20) Glucose (70-99) mg/dl POC Glucose 447 H* 352 H* 280 H (70-99) mg/dl Estimat Average Glucose mg/dl Hemoglobin A1c (4.5-5.6) % Calcium (8.5-10.1) mg/dl Beta-Hydroxybutyric Acd (0.2-2.81) mg/dl Procalcitonin 08/03/21 08/03/21 08/03/21 Range/Units 20:34 17:43 15:36 WBC (4.8-10.8) K/uL RBC (4.2-5.4) M/uL Hgb (12.0-16.0) g/dL Hct (37-47) % MCV (80-100) fL MCH (25-34) pg MCHC (32-36) g/dL RDW Std Deviation (36.4-46.3) fL RDW Coeff of Shannon (11.5-14.5) % Plt Count (130-400) K/uL MPV (7.4-10.4) fL Immature Gran % (Auto) % Neut % (Auto) % Lymph % (Auto) % Mckenzie % (Auto) % Eos % (Auto) % Baso % (Auto) % Neut # (Auto) (1.4-6.5) K/uL Lymph # (Auto) (1.2-3.4) K/uL Mckenzie # (Auto) (0.11-0.59) K/uL Eos # (Auto) (0-0.5) K/uL Baso # (Auto) (0-0.2) K/uL Immature Gran # (Auto) (0.00-0.02) K/uL Sodium (136-145) mmol/L Potassium (3.5-5.1) mmol/L Chloride (98-107) mmol/L Carbon Dioxide (21-32) mmol/L Anion Gap (3-11) BUN (7-18) mg/dl Creatinine (0.6-1.2) mg/dl Est Cr Clr Drug Dosing ml/min Est GFR ( Amer) ml/min Est GFR (Non-Af Amer) ml/min BUN/Creatinine Ratio (10-20) Glucose (70-99) mg/dl POC Glucose 319 H* 267 H 203 H (70-99) mg/dl Estimat Average Glucose mg/dl Hemoglobin A1c (4.5-5.6) % Calcium (8.5-10.1) mg/dl Beta-Hydroxybutyric Acd (0.2-2.81) mg/dl Procalcitonin Diagnostic Findings Chest X-Ray 08/03/21 00:00 XR chest 1V portable INDICATION: MN ^Y ^WRONG COUNT ^EXTRA COUNT/WRONG COUNT. TECHNIQUE: Single frontal radiograph of the chest was obtained. Comparison: None available at the time of this dictation. FINDINGS: Endotracheal tube is seen with the tip 47 mm from the manasa. Bilateral drains are seen over the chest. No radiodense foreign bodies seen. The cardiomediastinal silhouette is normal. The lungs are clear. No evidence of pleural effusion or pneumothorax. IMPRESSION: No radiodense foreign bodies apart from endotracheal tube and bilateral drains. ACT 112: Negative or not required by law. Electronically signed by: Ruben Tinsley M.D. 08/03/2021 3:22 PM PG Care Time/CCT Total # of Minutes Spent Total Time Spent with Patient: Total time spent is greater than 50% in coordination of care (as documented) at patient's floor/unit and/or counseling patient: Coding Level of Care Code 80862 Subseq Hosp Care Lvl 3 Diagnoses Ductal carcinoma in situ (DCIS) of left breast D05.12 Diabetes E11.9 Hypertension I10 Chronic depression F32.9 Asthma J45.909 Hypothyroidism E03.9 DVT prophylaxis Z29.9 Hematoma T14.8XXA Tachycardia R00.0 Hypotension I95.9 Acute blood loss anemia D62
[2021-08-04] MEDS ORDERED: LACTATED RINGER'S 500 ML IV ONE (08:24)
[2021-08-04 08:28] LABS: BUN Creatinine Ratio 15.6 (10-20); Calcium 8.7 mg/dl (8.5-10.1); Creatinine Clr Calc Pharmacy 69.5 ml/min; Est GFR (African American) 73.6 ml/min; Est GFR (Non-African American) 63.5 ml/min; Potassium 4.3 mmol/L (3.5-5.1)
--- NOTE | 2021-08-04 08:28 | Surgery Progress Note ---
Date of Service August 04, 2021 Assessment & Plan (1) Ductal carcinoma in situ (DCIS) of left breast: Plan: POD 1 bilat mastectomies, left SLN bx Hgb stable at 11.9 getting 1 liter bolus now for hypotension/tachy monitor drain output, repeat H&H at noon NPO for now Admission and Anticipated Discharge Date Admission Date: August 03, 2021 Supervising Physician Co-Signing Physician Notes I personally saw and evaluated the patient with Jose Carlos Cardoso PA-C and agree with the assessment and plan. 51 yo female POD#1 Bilateral Mastectomy with L SLNB -She has had tachycardia and hypotension and left chest hematoma -Will plan to take her back today to OR for exploration of left chest, evacuation of hematoma -Consent obtained, risks discussed including bleeding, infection, need for futher procedure. Subjective dizzy when up, garrett placed for retention Physical Exam Chest (Breasts): Additional Comments: some swelling/ecchymosis left chest drain output approaching 400 cc total dark blood right chest wound flat, 120 cc total drainage Results & Data ([facility]) Vital Signs (Past 12 Hours) Vital Signs Temp Pulse Pulse Resp BP BP Pulse Ox 08/04/21 08:10 112/69 08/04/21 07:08 36.8 C 124 H 16 91/52 L 99 08/04/21 04:11 130 H 115/81 97 08/04/21 02:05 114/76 08/04/21 01:54 36.5 C 141 H 16 90/63 L 97 08/03/21 22:18 36.6 C 113 H 16 124/81 96 PG Care Time/CCT Total # of Minutes Spent Total Time Spent with Patient: Total time spent is greater than 50% in coordination of care (as documented) at patient's floor/unit and/or counseling patient: Coding Level of Care Code None Diagnoses Ductal carcinoma in situ (DCIS) of left breast D05.12
[2021-08-04] MEDS ORDERED: Nursing to Pharmacy Communication SCH (08:30)
[2021-08-04 08:39] LABS: Beta-Hydroxybutyrate 0.72 mg/dl (0.2-2.81)
[2021-08-04] MEDS ORDERED: LOSARTAN POTASSIUM 50 MG TAB PO SCH (09:00)
[2021-08-04] MEDS ORDERED: NON-FORMULARY MEDICATION (Paroxetine Hcl 40 mg tablet) PO SCH (09:00)
[2021-08-04] MEDS ORDERED: BUPIVACAINE 0.5 % 5 MG/1 ML MPF 30ML VIAL ONE (09:07)
[2021-08-04] MEDS ORDERED: EPINEPHrine INJ 1 MG/ML AMP ONE (09:07)
--- NOTE | 2021-08-04 09:07 | Anesthesiology Consultation ---
Date of Service August 04, 2021 Assessment & Plan Chart Review Chart Review: Acceptable Risk for Surgery and Patient NOT seen in Pre Admission Testing Consults Requested none ASA [id number] Proposed Anesthesia Anesthesia Type: General History Surgery Operation Date: 08/03/21 11:10 Proposed Procedures p Bilateral Breast Mastectomy with Left [place] Lymph Node Biopsy, Possible Left Axillary Dissection (NM Injection and Scan 0800) - Edvin Degroot DO Operation Date: 08/04/21 09:55 Proposed Procedures p Evactuation of Left Breast Mastectomy Hematoma - Edvin Degroot DO Height/Weight Height: 5 ft 4 in Weight: 88.8 kg Allergies Allergy/AdvReac Type Severity Reaction Status Date / Time ibuprofen Allergy Severe Anaphylaxis Verified 08/03/21 10:23 clavulanic acid Allergy Intermediate Hives Verified 08/03/21 10:23 Sulfa (Sulfonamide Allergy Intermediate HIVES Verified 08/03/21 10:23 Antibiotics) sulfamethoxazole Allergy Intermediate HIVES Verified 08/03/21 10:23 trimethoprim Allergy Intermediate HIVES Verified 08/03/21 10:23 metformin Allergy Mild Diarrhea Verified 08/03/21 10:23 Penicillins Allergy Mild Rash Verified 08/03/21 10:23 Medications Home Medications Medication Instructions Recorded Confirmed Last Taken ezetimibe 10 mg tablet 10 mg PO QAM 05/22/21 08/03/21 08/02/21 09:30 insulin lispro 100 unit/mL 5 unit SUBCUT [facility] 05/22/21 08/03/21 08/02/21 09:30 subcutaneous pen (Humalog KwikPen (U-100) Insulin) levothyroxine 50 mcg tablet 50 mcg PO QA 05/22/21 08/03/21 08/02/21 09:30 linagliptin 5 mg tablet (Tradjenta) 5 mg PO QAM 05/22/21 08/03/21 08/02/21 09:30 losartan 100 mg tablet 100 mg PO QA 05/22/21 08/03/21 08/02/21 09:30 lovastatin 40 mg tablet 40 mg PO 05/22/21 08/03/21 08/02/21 11:30 montelukast 10 mg tablet 10 mg PO 05/22/21 08/03/21 08/02/21 23:30 pantoprazole 40 mg tablet,delayed 40 mg PO [facility] 07/10/3108/03/21 08/02/21 09:30 release paroxetine HCl 10 mg tablet 10 mg PO QAM 05/22/21 08/03/21 08/02/21 09:30 paroxetine HCl 40 mg tablet 40 mg PO QAM 05/22/21 08/03/21 08/02/21 09:30 pregabalin 150 mg capsule 150 mg PO TID 05/22/21 08/03/21 08/02/21 23:30 ropinirole 0.5 mg tablet 0.5 mg PO HS 05/22/21 08/03/21 08/02/21 23:30 albuterol sulfate 2.5 mg INHALATION Q4H PRN 05/24/21 08/03/21 Unknown aspirin 81 mg tablet,delayed 81 mg PO QAM 05/24/21 08/03/21 08/02/21 09:30 release loratadine 10 mg capsule 10 mg PO QAM 05/24/21 08/03/21 08/02/21 09:30 albuterol sulfate 90 mcg/actuation 2 puff INHALATION QID PRN 06/23/21 08/03/21 Unknown aerosol inhaler oxycodone 5 mg tablet 5 - 10 mg PO Q4H #15 tab 07/18/21 08/03/21 07/04/21 18:00 insulin detemir U-100 100 unit/mL 25 unit SUBCUT QAM 07/28/21 08/03/21 08/02/21 09:30 subcutaneous solution (Levemir U-100 Insulin) Active Medications Generic Name Dose Route Start Last Admin Trade Name Freq PRN Reason Stop Dose Admin Acetaminophen 650 mg 08/03/21 17:24 08/04/21 02:24 Acetaminophen 325 Mg Tab PO 09/02/21 17:23 650 mg Q6H PRN Administration Pain & Pre PT Aspirin 81 mg 08/04/21 09:00 08/04/21 07:25 Aspirin 81 Mg Ectab PO 09/03/21 08:59 81 mg QAM FRANCIS[place] Administration Insulin Human Regular 250 250 mls @ 5.6 mls/hr 08/04/21 03:30 08/04/21 08:56 units/ Sodium Chloride IV 09/03/21 03:29 5.6 units/hr .Q24H FRANCISCO 5.6 mls/hr Titration Protocol 5.6 UNITS/HR Lactated Ringer's 1,000 mls @ 100 mls/hr 08/04/21 08:30 08/04/21 08:11 Lr IV 09/03/21 08:29 100 mls/hr .Q10H [place] Administration Levothyroxine Sodium 50 mcg 08/04/21 09:00 08/04/21 07:25 Levothyroxine Sodium 50 Mcg Tablet PO 09/03/21 08:59 50 mcg QAM [place] Administration Loratadine 10 mg 08/04/21 09:00 08/04/21 07:25 Loratadine 10 Mg Tab PO 09/03/21 08:59 10 mg QAM [place] Administration Losartan Potassium 100 mg 08/04/21 09:00 08/04/21 07:26 Losartan Potassium 50 Mg Tab PO 09/03/21 08:59 Not Given QAM [place] Montelukast Sodium 10 mg 08/03/21 21:00 08/03/21 20:23 Montelukast Sodium 10 Mg Tablet PO 09/02/21 20:59 10 mg HS FRANCISCO Administration Morphine Sulfate 2 mg 08/03/21 17:24 08/03/21 19:23 Morphine Sulfate 2 Mg/Ml Carp IV 08/17/21 17:23 2 mg Q1H PRN Administration Pain (1,2,3,4,5) & Pre PT Ondansetron HCl 4 mg 08/03/21 17:24 08/04/21 00:04 Ondansetron Inj 2 Mg/Ml 2 Ml Vial IV 09/02/21 17:23 4 mg Q4H PRN Administration Nausea And Vomiting Oxycodone HCl 5 mg 08/03/21 17:24 08/03/21 18:01 Oxycodone Hcl Ir 5 Mg Tab (Immediate Release) PO 08/17/21 17:23 5 mg Q4H PRN Administration MODERATE Pain (4,5,6) & Pre PT Oxycodone HCl 10 mg 08/03/21 17:24 08/04/21 07:27 Oxycodone Hcl Ir 5 Mg Tab (Immediate Release) PO 08/17/21 17:23 10 mg Q4H PRN Administration SEVERE Pain (7,8,9,10) Pantoprazole Sodium 40 mg 08/04/21 09:00 08/04/21 07:25 Pantoprazole 40 Mg Tab PO 09/03/21 08:59 40 mg QAM [place] Administration Paroxetine HCl 50 mg 08/04/21 09:00 08/04/21 07:25 Paroxetine Hcl 10 Mg Tab PO 09/03/21 08:59 50 mg QAM [place] Administration Pregabalin 150 mg 08/03/21 21:00 08/04/21 07:27 Pregabalin 150 Mg Cap PO 09/02/21 20:59 150 mg TID [place] Administration Ropinirole HCl 0.5 mg 08/03/21 21:00 08/03/21 20:23 Ropinirole Hcl 0.25 Mg Tablet PO 09/02/21 20:59 0.5 mg HS FRANCIS[place] Administration NPO Date Last Intake of Fluids: 08/02/21 Time Last Intake of Fluids: 23:30 Date Last Intake of Solids: 08/02/21 Time Last Intake of Solids: 22:30 Past Medical History Medical History Allergic rhinitis Asthma LAST USED INHLAER>6 MONTHS AGO Atypical ductal hyperplasia of left breast plan to do bilateral mastectomy Depression Diabetes mellitus, type 2 Fatty liver Fibromyalgia GERD (gastroesophageal reflux disease) Hx of seizure disorder LAST EPISODE 2005 (NO NEUROLOGIST) Hyperlipidemia Hypertension Hypothyroidism IBS (irritable bowel syndrome) Restless leg syndrome Temporomandibular joint disorder NO LOCKING Exercise / Class Metabolic Activity III < 4 Walking/Shop/Light housework Past Family History Family History Mother Breast cancer Grandmother (Maternal) Breast cancer Father Diabetes Heart disease Hypertension Other No family history of adverse response to anesthesia Past Surgical History Surgical History Amputated toe LEFT FOOT SMALL TOE R/T INFECTION H/O bilateral mastectomy (08/03/21) Bilateral Breast Mastectomy with Left [place] Lymph Node Biopsy Dr. Degroot 08/03/2021 H/O breast surgery left 11/11/2013 benign/clip placement H/O sinus surgery MULTIPLE TIMES History of arthroscopy RT KNEE History of cardiac cath 25 YEARS AGO (NO STENTS) History of carpal tunnel surgery LEFT/RT History of colonoscopy History of esophagogastroduodenoscopy (EGD) History of hysterectomy History of partial mastectomy of left breast (07/18/21) Left Breast Partial Mastectomy Dr. Degroot 07-18-2021 History of tooth extraction Hx of elbow surgery RT/LEFT ULNAR NERVE RELEASE S/P breast biopsy, left (07/04/21) Left Breast Biopsy with Wire Localization(Left) - Edvin Degroot, DO Past Anesthesia History No Hx of Anesthesia Complications and No Family Hx of Anesthesia Complications History of PONV No Hx of PONV and No Hx of Motion Sickness Social History Smoking Status: Never smoker Do You Dip or Chew Tobacco: No Hx Alcohol Use: No Alcohol type: wine alcohol intake frequency: holidays/special occasions only Hx Substance Use: No substance use type: does not use Physical Exam Vital Signs Last Vital Signs Temp 36.8 C 08/04/21 07:08 Pulse 124 H 08/04/21 07:08 Resp 16 08/04/21 07:08 BP 112/69 08/04/21 08:10 Pulse Ox 99 08/04/21 07:08 Testing Laboratory Results 08/04/21 06:15 08/04/21 06:15 08/04/21 08/04/21 08/04/21 08:44 07:42 06:44 POC Glucose 232 H 312 H* 322 H* 08/04/21 08/04/21 08/04/21 05:43 04:43 04:41 POC Glucose 338 H* 371 H* 360 H* 08/04/21 08/04/21 08/04/21 03:37 02:03 02:01 POC Glucose 368 H* 413 H* 447 H* 08/04/21 08/03/21 01:58 23:58 POC Glucose 352 H* 280 H
[2021-08-04] MEDS: INSULIN ASPART 100 UNITS/ML 3 ML PEN SC SCH ×5 (09:22→21:02)
[2021-08-04] MEDS ORDERED: ARISTA ABSORBABLE HEMOSTAT 3GM TOP ONE ×3 (09:30→11:13)
[2021-08-04] MEDS ORDERED: PROPOFOL IV EMULSION 10 MG/ML 20 ML VIAL IV ONE (09:42)
[2021-08-04] MEDS ORDERED: fentaNYL citrate 100 MCG/2 ML VIAL ONE ×2 (09:42→10:24)
[2021-08-04] MEDS ORDERED: ONDANSETRON INJ 2 MG/ML 2 ML VIAL ONE (09:42)
[2021-08-04] MEDS ORDERED: DEXAMETHASONE SOD INJ 4 MG/ML VIAL ONE ×2 (09:42→11:06)
[2021-08-04 09:48] LABS: Estimated Average Glucose 324 mg/dl; Hemoglobin A1C 12.9 % (4.5-5.6)
[2021-08-04] MEDS ORDERED: ceFAZolin 2000MG 2,000 MG/15 ML SYR IV ONE ×2 (09:59→18:00)
[2021-08-04] MEDS ORDERED: ceFAZolin 2,000 MG/15 ML IV PUSH IV ONE (10:00)
[2021-08-04] MEDS ORDERED: ONDANSETRON INJ 2 MG/ML 2 ML VIAL IV PRN (10:05)
[2021-08-04] MEDS ORDERED: ATROPINE SULFATE 0.1 MG/ML 10ML SYR IV PRN (10:05)
[2021-08-04] MEDS ORDERED: ePHEDrine sulfate 50 MG/ML AMP IV PRN (10:05)
[2021-08-04] MEDS ORDERED: PROMETHAZINE HCL 12.5 MG in SODIUM CHLORIDE 0.9% 50 ML IV PRN (10:05)
[2021-08-04] MEDS ORDERED: fentaNYL citrate 100 MCG/2 ML VIAL IV PRN (10:05)
[2021-08-04] MEDS ORDERED: LABETALOL HCL IV 5 MG/ML 20ML IV PRN (10:05)
[2021-08-04] MEDS ORDERED: NALOXONE HCL 0.4 MG/1 ML VIAL/CARP IV PRN (10:05)
[2021-08-04] MEDS ORDERED: FLUMAZENIL 0.1 MG/1 ML 10 ML VIAL IV PRN (10:05)
[2021-08-04] MEDS ORDERED: ESMOLOL HCL INJ 10 MG/ML 10ML VIAL IV ONE (10:24)
[2021-08-04] MEDS ORDERED: PROMETHAZINE HCL INJ 25 MG/ML 1 ML VIAL ONE (10:24)
[2021-08-04] MEDS ORDERED: SUCCINYLCHOLINE 100MG/5ML SYR IV ONE (10:24)
[2021-08-04] MEDS ORDERED: ePHEDrine sulfate 50 MG/ML SYR ONE (10:26)
[2021-08-04] MEDS ORDERED: PHENYLEPHRINE 100MCG/ML 5ML SYR ONE (10:26)
--- NOTE | 2021-08-04 10:46 | Pharmacy Report ---
Pharmacy Glycemic Short Note 2 - Date of Service August 04, 2021 - Glycemic Short BSG Results (Last 24 hours): 08/03/21 08/03/21 08/03/21 12:02 12:30 13:12 Glucose POC Glucose 311 H* 256 H 280 H 08/03/21 08/03/21 08/03/21 15:36 17:43 20:34 Glucose POC Glucose 203 H 267 H 319 H* 08/03/21 08/04/21 08/04/21 23:58 01:58 02:01 Glucose POC Glucose 280 H 352 H* 447 H* 08/04/21 08/04/21 08/04/21 02:03 02:21 03:37 Glucose 428 H* POC Glucose 413 H* 368 H* 08/04/21 08/04/21 08/04/21 04:41 04:43 05:43 Glucose POC Glucose 360 H* 371 H* 338 H* 08/04/21 08/04/21 08/04/21 06:15 06:44 07:42 Glucose 308 H* POC Glucose 322 H* 312 H* 08/04/21 08/04/21 08:44 09:34 Glucose POC Glucose 232 H 241 H OUTPATIENT ANTIDIABETIC REGIMEN: * Levemir 25 units qam * Humalog 5 units qam * Tradjenta 5mg qam ASSESSMENT: 08/04: * Patient was started on IV insulin drip overnight for blood sugars consistently above 300 mg/dl in spite of basal Lantus dose given last night and Novolog bolus coverage. * Fasting BSG today AM was at 308 mg/dl. AM dose of Lantus 22 units x1 given today. IV insulin drip was increased up to 7 units/hr this AM. Blood sugars finally came down to 242 mg/dl before patient was taken back to OR today for chest hematoma. * BSG at noon = 264 mg/dl. Additional 10 units of Lantus ordered. * Overall, patient has received around an average of 33 units of insulin via insulin drip in the last 6 hrs. * Plan is to d/c insulin drip today once BSGs consistently below 200 mg/dl. 08/03/21: * Patient s/p B/L mastectomy and sentinel node biopsy * Provider and RN confirmed with patient that she did not take her levemir this morning. Patient did tolerate a clear liquid diet for dinner * RN confirmed that dexamethasone was not given in the OR * Will administer home basal dose X 1 tonight with a moderate stress novolog scale and monitor BSG trends with overnight checks PLAN FOR INPATIENT GLYCEMIC CONTROL: * Hold outpatient oral diabetes medications * Basal insulin * Lantus 25 units SQ X 1 last night 19:30 * Lantus 22 units SQ x1 today AM at 08:00 and 10 units at 13:00 today * Lantus 10-22 units scale SQ at HS today based on BSG * Bolus insulin: TBD * NovoLog per scale ACHS or Q6hrs while NPO * Goal Range: Low 110 mg/dL - High 140 mg/dL * Correction Factor: __ mg/dL/unit * Nutritional / Prandial insulin per carb ratio of 1 unit per _ grams CHO consumed PLAN FOR DISCHARGE: * TBD
[2021-08-04] MEDS ORDERED: PHENYLEPHRINE HCL 10 MG/ML VIAL ONE (10:51)
--- NOTE | 2021-08-04 11:39 | Post Operative Brief Note ---
PG Immediate Post Op with CF Date of Surgery August 04, 2021 Pre & Post Diagnosis Operation Date: 08/04/21 09:55 Pre-Op Diagnosis: Left chest hemotoma. Post-Op Diagnosis: Left chest hemotoma. I identified the patient and participated in the time-out.: Yes Procedure Operation Date: 08/04/21 09:55 Actual Procedures p Evacuation of Left Breast Mastectomy Hematoma(Left) - Edvin Degroot DO Surgeon Edvin Degroot DO Paper Machine Operator Milton Cardoso PA-C Estimated Blood Loss 50 Findings See Below Large amount of clot, small arterial bleeding from inferior portion of pec major Specimens Specimen Description: None Drains Isaac Catheter and Ilia-Fairchild Drain (19f edvin with APRIL inserted into left chest. Right chest continues to have prior APRIL.) Anesthesia Type General Complications None Disposition Disposition: Recovery Room
--- NOTE | 2021-08-04 11:40 | Operative Report ---
PG Post Operative Report Pre & Post Diagnosis Operation Date: 08/04/21 09:55 Pre-Op Diagnosis: Left chest hemotoma. Post-Op Diagnosis: Left chest hemotoma. I identified the patient and participated in the time-out.: Yes Procedure Operation Date: 08/04/21 09:55 Actual Procedures p Evactuation of Left Breast Mastectomy Hematoma(Left) - Edvin Degroot DO Surgeon Edvin Degroot DO Edi Developer Milton Cardoso PA-C Estimated Blood Loss 50 Findings See Below Large amount of clot, small arterial bleeding from inferior portion of pec major Specimens None Drains 19 Fr Edvin drain in left chest incision Anesthesia Type General Complications none Disposition Disposition: Recovery Room Indications 51 yo s/p mastectomy with left chest hematoma Description of Procedure The patient was brought to the OR and placed in the supine position with both arms abducted. At this time she underwent general endotracheal anesthesia without any problems. She was given appropriate pre-operative antibiotics. Her left chest and axilla were prepped and draped in the usual sterile fashion. Timeout was called. The procedure was verified as Evacuation of Left chest hematoma. Surgical, anesthesia and nursing teams agreed and the procedure was begun. The previous incision was opened with a #15 blade scalpel along its entirety. A large amount of old clot was evacuated. The incision was irrigated and there was a small arterial bleeder seen inferiorly within the pectoralis muscle. This was suture ligated with 3-0 Vicryl in a figure of eight fashion. No bleeding resulted. At this time the incision was irrigated until clear. Hemostasis was achieved using electrocautery. Hemostasis was complete. There were no other areas of bleeding noted. Aristra was then placed in the entire surface area of the cavity. A new #19 [place] Edvin drain was introduced through a stab incision laterally on the lower skin flap. It was placed along the axilla and superior skin flap. At this time the incision was closed using 3-0 Vicryl suture at the deep dermal layer and 4-0 Monocryl in a running subcutaneous fashion in the skin. Dermabond Prineo dressing was applied. Sterile dressing was then placed over this and surgical bra. The patient was then awakened from anesthesia and extubated having remained stable throughout the entire case. Needle and sponge count were correct x 2. The physician's assistant grocery store manager was present and scrubbed for the entire case. He was essential for positioning, prepping and draping the patient, retraction and exposure, closure of the incision and placement of the dressings. I attest to the content of the Intraoperative Record and any orders documented therein. Any exceptions are noted below.
[2021-08-04] MEDS ORDERED: METOPROLOL TARTRATE 1 MG/ML VIAL IV STA (12:47)
[2021-08-04] MEDS ORDERED: METOPROLOL TARTRATE 1 MG/ML VIAL IV ONE (12:48)
--- NOTE | 2021-08-04 13:00 | Anesthesiology Progress Note ---
Date of Service August 04, 2021 Anesthesia Post Procedure Vital Signs Vital Signs: Temp Pulse Pulse Pulse Pulse Pulse Resp 08/04/21 12:50 129 H 08/04/21 12:31 129 H 20 08/04/21 12:20 125 H 20 08/04/21 12:10 122 H 20 08/04/21 12:00 120 H 20 08/04/21 11:52 36.4 C L 114 H 18 08/04/21 09:36 36.7 C 18 L 122 H 122 H 18 08/04/21 08:10 08/04/21 07:08 36.8 C 124 H 16 08/04/21 04:11 130 H 08/04/21 02:05 08/04/21 01:54 36.5 C 141 H 16 08/03/21 22:18 36.6 C 113 H 16 08/03/21 20:17 36.8 C 101 H 20 08/03/21 19:15 36.7 C 113 H 16 08/03/21 18:16 36.4 C L 115 H 16 08/03/21 17:46 36.6 C 104 H 16 08/03/21 17:15 36.5 C 111 H 16 08/03/21 16:45 110 H 16 08/03/21 16:30 109 H 16 08/03/21 16:20 36.4 C L 108 H 16 08/03/21 16:10 108 H 18 08/03/21 16:00 106 H 18 08/03/21 15:50 108 H 18 08/03/21 15:40 106 H 18 08/03/21 15:33 36.4 C L 102 H 20 BP BP BP Pulse Ox 08/04/21 12:50 114/59 L 08/04/21 12:31 124/72 100 08/04/21 12:20 153/80 H 100 08/04/21 12:10 136/82 100 08/04/21 12:00 153/78 H 100 08/04/21 11:52 137/82 97 08/04/21 09:36 121/69 96 08/04/21 08:10 112/69 08/04/21 07:08 91/52 L 99 08/04/21 04:11 115/81 97 08/04/21 02:05 114/76 08/04/21 01:54 90/63 L 97 09/23/21 22:18 124/81 96 08/03/21 20:17 130/80 97 08/03/21 19:15 143/81 H 98 08/03/21 18:16 147/82 H 98 08/03/21 17:46 137/75 95 08/03/21 17:15 145/73 H 94 08/03/21 16:45 142/73 H 94 08/03/21 16:30 148/74 H 94 08/03/21 16:20 143/72 H 96 08/03/21 16:10 155/68 H 95 08/03/21 16:00 134/74 95 08/03/21 15:50 133/77 95 08/03/21 15:40 127/78 99 08/03/21 15:33 143/71 H 99 Pain Intensity Bilateral Breast: Pain Intensity: 7 Transfer of Care Handoff Completed per policy Notes Mental Status: alert / awake / arousable Patient Amnestic to Procedure: Yes Nausea / Vomiting: adequately controlled Pain: adequately controlled Airway Patency, RR, SpO2: stable & adequate BP & HR: stable & adequate Hydration State: stable & adequate Anesthetic Complications: no major complications apparent
[2021-08-04 13:10] LABS: Hemoglobin 10.6 g/dL (12.0-16.0)
[2021-08-04 14:52] LABS: Magnesium 1.9 mg/dl (1.8-2.4)
[2021-08-04 15:34] LABS: Appearance Urine Clear (Clear); Bilirubin Urine Negative (Negative); Blood Urine Negative (Negative); Color Urine Yellow; Glucose Urine UA 3+ (Negative); Ketones Urine Negative (Negative); Leukocyte Esterase Urine Negative (Negative); Nitrite Urine Negative (Negative); Protein Urine Negative (Negative); Specific Gravity Urine 1.034 (1.000-1.030); Urobilinogen Urine Negative (Negative)
[2021-08-04] MEDS ORDERED: IRON SUCROSE 300 MG in SODIUM CHLORIDE 0.9% 250 ML IV ONE (16:00)
[2021-08-04] MEDS ORDERED: INSULIN GLARGINE SOLOSTAR 100 UNITS/ML 3 ML PEN SC SCH (21:00)
[2021-08-04] MEDS: MONTELUKAST SODIUM 10 MG TABLET PO SCH (21:03)
[2021-08-04] MEDS: rOPINIRole HCL 0.25 MG TABLET PO SCH ×2 (21:03→21:24)
[2021-08-04] MEDS ORDERED: LACTATED RINGER'S 1,000 ML IV ONE (21:32)
[2021-08-04 21:57] LABS: Hematocrit (blood only) 26.3 % (37-47); Hemoglobin 8.8 g/dL (12.0-16.0)
[2021-08-04] MEDS ORDERED: SODIUM CHLORIDE 0.9% 250 ML IV PRN (23:07)
--- NOTE | 2021-08-05 04:34 | Communication Note ---
Date of Service: August 05, 2021 Notified by RN ~9:20 PM that patient was mildly lethargic and hypoglycemic on insulin drip. Also noted that she was tachycardic to 115, BP 93/56, O2 93 on room air. bolused 1L LR. stat H&H drawn revealing Hg drop from 10.6 to 8.8 over the course of the day. Inspection of surgical site showed no oozing, soft, drains functional bilaterally. Pt asymptomatic with anemia at that time, but still with tachycardia and BP in 90s/50s. Consented for blood transfusion. 1u pRBC ordered to be transfused with 2 additional units held. [employer] sent on venereal disease control head surgical PA to update them of developments.
[2021-08-05] MEDS: LACTATED RINGER'S 1,000 ML IV SCH ×2 (05:33→15:47)
[2021-08-05 05:46] LABS: Basophils # (auto) 0.01 K/uL (0-0.2); Basophils % (auto) 0.1 %; Eosinophils # (auto) 0.03 K/uL (0-0.5); Eosinophils % (auto) 0.2 %; Hematocrit (blood only) 28.8 % (37-47); Hemoglobin 9.1 g/dL (12.0-16.0); Immature Granulocytes # (auto) 0.05 K/uL (0.00-0.02); Immature Granulocytes % (auto) 0.3 %; Lymphocytes # (auto) 4.05 K/uL (1.2-3.4); Lymphocytes % (auto) 24.4 %; Mean Corpuscular Hemoglobin 29.3 pg (25-34); Mean Corpuscular Hgb Conc 31.6 g/dL (32-36); Mean Corpuscular Volume 92.6 fL (80-100); Mean Platelet Volume 10.4 fL (7.4-10.4); Monocytes # (auto) 2.53 K/uL (0.11-0.59); Monocytes % (auto) 15.2 %; Neutrophils # (auto) 9.93 K/uL (1.4-6.5); Neutrophils % (auto) 59.8 %; Platelet Count 209 K/uL (130-400); RDW Coefficient of Variation 13.1 % (11.5-14.5); RDW Standard Deviation 44.2 fL (36.4-46.3); Red Blood Count 3.11 M/uL (4.2-5.4)
[2021-08-05 05:47] LABS: Basophils # (auto) 0.01 K/uL (0-0.2); Basophils % (auto) 0.1 %; Eosinophils # (auto) 0.05 K/uL (0-0.5); Eosinophils % (auto) 0.3 %; Hematocrit (blood only) 27.9 % (37-47); Immature Granulocytes # (auto) 0.03 K/uL (0.00-0.02); Immature Granulocytes % (auto) 0.2 %; Mean Corpuscular Hemoglobin 29.8 pg (25-34); Mean Corpuscular Hgb Conc 32.3 g/dL (32-36); Mean Corpuscular Volume 92.4 fL (80-100); Mean Platelet Volume 10.5 fL (7.4-10.4); Monocytes % (auto) 14.7 %; Neutrophils # (auto) 9.89 K/uL (1.4-6.5); Neutrophils % (auto) 60.7 %; Platelet Count 200 K/uL (130-400); RDW Coefficient of Variation 13.1 % (11.5-14.5); RDW Standard Deviation 44.3 fL (36.4-46.3); Red Blood Count 3.02 M/uL (4.2-5.4); White Blood Count 16.28 K/uL (4.8-10.8)
[2021-08-05 06:39] LABS: BUN Creatinine Ratio 17.8 (10-20); Creatinine Clr Calc Pharmacy 132.3 ml/min; Est GFR (African American) 124.9 ml/min; Est GFR (Non-African American) 107.7 ml/min; Ferritin 144.4 ng/ml (8-388); Potassium 3.4 mmol/L (3.5-5.1)
[2021-08-05] MEDS ORDERED: POTASSIUM CHLORIDE CRTAB 20 MEQ TABCR PO STA (08:07)
[2021-08-05] MEDS: ASPIRIN 81 MG ECTAB PO SCH (08:20)
[2021-08-05] MEDS: PANTOprazole 40 MG TAB PO SCH (08:20)
[2021-08-05] MEDS: LORATADINE 10 MG TAB PO SCH (08:20)
[2021-08-05] MEDS: PARoxetine HCL 10 MG TAB PO SCH (08:21)
[2021-08-05] MEDS: LEVOTHYROXINE SODIUM 50 MCG TABLET PO SCH (08:21)
[2021-08-05] MEDS: PREGABALIN 150 MG CAP PO SCH ×3 (08:26→20:57)
[2021-08-05] MEDS: INSULIN ASPART 100 UNITS/ML 3 ML PEN SC SCH ×4 (08:31→20:56)
--- NOTE | 2021-08-05 08:35 | Surgery Progress Note ---
Date of Service August 05, 2021 Assessment & Plan (1) S/P bilateral mastectomy: Plan: complicated by left sided bleed requiring return to OR and evacuation of hematoma. Now s/p 1 unit PRBC. BP better but still tachycardic (HR 110s). Will continue to monitor H/H and drain output. Diabetes - management as per medicine. Sugars are running in low 100s Still with oxygen requirement. Will wean as her activity level increases. Admission and Anticipated Discharge Date Admission Date: August 04, 2021 Subjective Had a rough night (see note). Given 1 unit PRBC and feels better today. No pain, no nausea currently. Still on oxygen at 2L/min. Physical Exam Cardiovascular: Rate/Rhythm: + tachycardic Heart Sounds: no murmur Chest (Breasts): Additional Comments: bilateral mastectomies, left APRIL with 155 cc bloody fluid, right with 130 cc bloody fluid overnight Incisions clean with no evidence of recurrent hematoma. Neurologic: awake; no focal motor deficits Psychiatric: A+Ox3, euthymic affect Results & Data ([facility]) Vital Signs (Past 12 Hours) Vital Signs Temp Pulse Pulse Pulse Resp BP BP 08/05/21 07:53 112 H 08/05/21 07:05 36.7 C 114 H 17 08/05/21 03:59 37.1 C 115 H 18 118/68 08/05/21 03:06 36.9 C 115 H 18 120/71 08/05/21 02:02 37.0 C 109 H 20 100/46 L 08/05/21 01:35 36.9 C 111 H 18 109/50 L 08/05/21 01:20 36.8 C 107 H 16 112/74 08/05/21 01:02 37.0 C 119 H 20 107/64 08/04/21 23:03 36.6 C 111 H 17 08/04/21 22:19 115 H 08/04/21 21:17 115 H 93/56 L BP Pulse Ox 08/05/21 07:53 08/05/21 07:05 99/55 L 94 08/05/21 03:59 95 08/05/21 03:06 95 08/05/21 02:02 95 08/05/21 01:35 95 08/05/21 01:20 98 08/05/21 01:02 92 08/04/21 23:03 107/67 95 08/04/21 22:19 08/04/21 21:17 93 Laboratory Results 08/05/21 08/05/21 08/05/21 Range/Units 07:38 05:59 05:23 WBC 16.60 H (4.8-10.8) K/uL RBC 3.11 L (4.2-5.4) M/uL Hgb 9.1 L (12.0-16.0) g/dL Hct 28.8 L (37-47) % MCV 92.6 (80-100) fL MCH 29.3 (25-34) pg MCHC 31.6 L (32-36) g/dL RDW Std Deviation 44.2 (36.4-46.3) fL RDW Coeff of [place] 13.1 (11.5-14.5) % Plt Count 209 (130-400) K/uL MPV 10.4 (7.4-10.4) fL Immature Gran % (Auto) 0.3 % Neut % (Auto) 59.8 % Lymph % (Auto) 24.4 % [place] % (Auto) 15.2 % Eos % (Auto) 0.2 % Baso % (Auto) 0.1 % Neut # (Auto) 9.93 H (1.4-6.5) K/uL Lymph # (Auto) 4.05 H (1.2-3.4) K/uL [place] # (Auto) 2.53 H (0.11-0.59) K/uL Eos # (Auto) 0.03 (0-0.5) K/uL Baso # (Auto) 0.01 (0-0.2) K/uL Immature Gran # (Auto) 0.05 H (0.00-0.02) K/uL Sodium (136-145) mmol/L Potassium (3.5-5.1) mmol/L Chloride (98-107) mmol/L Carbon Dioxide (21-32) mmol/L Anion Gap (3-11) BUN (7-18) mg/dl Creatinine (0.6-1.2) mg/dl Est Cr Clr Drug Dosing ml/min Est GFR ( Amer) ml/min Est GFR (Non-Af Amer) ml/min BUN/Creatinine Ratio (10-20) Glucose (70-99) mg/dl POC Glucose 103 H 107 H (70-99) mg/dl Estimat Average Glucose mg/dl Hemoglobin A1c (4.5-5.6) % Calcium (8.5-10.1) mg/dl Magnesium (1.8-2.4) mg/dl Iron (35-150) mcg/dl Transferrin (200-360) mg/dl Transferrin % Sat (15-50) % Ferritin (8-388) ng/ml Vitamin B12 (193-986) pg/ml Beta-Hydroxybutyric Acd (0.2-2.81) mg/dl Procalcitonin (0-0.5) ng/ml Urine Color Urine Appearance (Clear) Urine pH (4.5-7.5) Ur Specific [place] (1.000-1.030) Urine Protein (Negative) Urine Glucose (UA) (Negative) Urine Ketones (Negative) Urine Blood (Negative) Urine Nitrite (Negative) Urine Bilirubin (Negative) Urine Urobilinogen (Negative) Ur Leukocyte Esterase (Negative) Blood Type Blood Type Recheck Antibody Screen Crossmatch 08/05/21 08/05/21 08/05/21 Range/Units 05:23 05:23 05:23 WBC 16.28 H (4.8-10.8) K/uL RBC 3.02 L (4.2-5.4) M/uL Hgb 9.0 L (12.0-16.0) g/dL Hct 27.9 L (37-47) % MCV 92.4 (80-100) fL MCH 29.8 (25-34) pg MCHC 32.3 (32-36) g/dL RDW Std Deviation 44.3 (36.4-46.3) fL RDW Coeff of [place] 13.1 (11.5-14.5) % Plt Count 200 (130-400) K/uL MPV 10.5 H (7.4-10.4) fL Immature Gran % (Auto) 0.2 % Neut % (Auto) 60.7 % Lymph % (Auto) 24.0 % [place] % (Auto) 14.7 % Eos % (Auto) 0.3 % Baso % (Auto) 0.1 % Neut # (Auto) 9.89 H (1.4-6.5) K/uL Lymph # (Auto) 3.90 H (1.2-3.4) K/uL [place] # (Auto) 2.40 H (0.11-0.59) K/uL Eos # (Auto) 0.05 (0-0.5) K/uL Baso # (Auto) 0.01 (0-0.2) K/uL Immature Gran # (Auto) 0.03 H (0.00-0.02) K/uL Sodium 139 (136-145) mmol/L Potassium 3.4 L D (3.5-5.1) mmol/L Chloride 113 H (98-107) mmol/L Carbon Dioxide 28 (21-32) mmol/L Anion Gap -2.0 L (3-11) BUN 10 D (7-18) mg/dl Creatinine 0.54 L D (0.6-1.2) mg/dl Est Cr Clr Drug Dosing 132.3 ml/min Est GFR ( Amer) 124.9 ml/min Est GFR (Non-Af Amer) 107.7 ml/min BUN/Creatinine Ratio 17.8 (10-20) Glucose 107 H (70-99) mg/dl POC Glucose (70-99) mg/dl Estimat Average Glucose mg/dl Hemoglobin A1c (4.5-5.6) % Calcium 8.0 L (8.5-10.1) mg/dl Magnesium (1.8-2.4) mg/dl Iron 183 H (35-150) mcg/dl Transferrin 149 L (200-360) mg/dl Transferrin % Sat 87 H (15-50) % Ferritin 144.4 (8-388) ng/ml Vitamin B12 329 (193-986) pg/ml Beta-Hydroxybutyric Acd (0.2-2.81) mg/dl Procalcitonin (0-0.5) ng/ml Urine Color Urine Appearance (Clear) Urine pH (4.5-7.5) Ur Specific [place] (1.000-1.030) Urine Protein (Negative) Urine Glucose (UA) (Negative) Urine Ketones (Negative) Urine Blood (Negative) Urine Nitrite (Negative) Urine Bilirubin (Negative) Urine Urobilinogen (Negative) Ur Leukocyte Esterase (Negative) Blood Type Blood Type Recheck Antibody Screen Crossmatch 08/05/21 08/05/21 08/04/21 Range/Units 03:58 01:00 Unknown WBC (4.8-10.8) K/uL RBC (4.2-5.4) M/uL Hgb (12.0-16.0) g/dL Hct (37-47) % MCV (80-100) fL MCH (25-34) pg MCHC (32-36) g/dL RDW Std Deviation (36.4-46.3) fL RDW Coeff of [place] (11.5-14.5) % Plt Count (130-400) K/uL MPV (7.4-10.4) fL Immature Gran % (Auto) % Neut % (Auto) % Lymph % (Auto) % [place] % (Auto) % Eos % (Auto) % Baso % (Auto) % Neut # (Auto) (1.4-6.5) K/uL Lymph # (Auto) (1.2-3.4) K/uL [place] # (Auto) (0.11-0.59) K/uL Eos # (Auto) (0-0.5) K/uL Baso # (Auto) (0-0.2) K/uL Immature Gran # (Auto) (0.00-0.02) K/uL Sodium (136-145) mmol/L Potassium (3.5-5.1) mmol/L Chloride (98-107) mmol/L Carbon Dioxide (21-32) mmol/L Anion Gap (3-11) BUN (7-18) mg/dl Creatinine (0.6-1.2) mg/dl Est Cr Clr Drug Dosing ml/min Est GFR ( Amer) ml/min Est GFR (Non-Af Amer) ml/min BUN/Creatinine Ratio (10-20) Glucose (70-99) mg/dl POC Glucose 111 H 121 H (70-99) mg/dl Estimat Average Glucose mg/dl Hemoglobin A1c (4.5-5.6) % Calcium (8.5-10.1) mg/dl Magnesium (1.8-2.4) mg/dl Iron (35-150) mcg/dl Transferrin (200-360) mg/dl Transferrin % Sat (15-50) % Ferritin (8-388) ng/ml Vitamin B12 (193-986) pg/ml Beta-Hydroxybutyric Acd (0.2-2.81) mg/dl Procalcitonin (0-0.5) ng/ml Urine Color Yellow Urine Appearance Clear (Clear) Urine pH 5.0 (4.5-7.5) Ur Specific [place] 1.034 H (1.000-1.030) Urine Protein Negative (Negative) Urine Glucose (UA) 3+ H (Negative) Urine Ketones Negative (Negative) Urine Blood Negative (Negative) Urine Nitrite Negative (Negative) Urine Bilirubin Negative (Negative) Urine Urobilinogen Negative (Negative) Ur Leukocyte Esterase Negative (Negative) Blood Type Blood Type Recheck Antibody Screen Crossmatch 08/04/21 08/04/21 08/04/21 Range/Units 23:11 23:07 22:01 WBC (4.8-10.8) K/uL RBC (4.2-5.4) M/uL Hgb (12.0-16.0) g/dL Hct (37-47) % MCV (80-100) fL MCH (25-34) pg MCHC (32-36) g/dL RDW Std Deviation (36.4-46.3) fL RDW Coeff of [place] (11.5-14.5) % Plt Count (130-400) K/uL MPV (7.4-10.4) fL Immature Gran % (Auto) % Neut % (Auto) % Lymph % (Auto) % [place] % (Auto) % Eos % (Auto) % Baso % (Auto) % Neut # (Auto) (1.4-6.5) K/uL Lymph # (Auto) (1.2-3.4) K/uL [place] # (Auto) (0.11-0.59) K/uL Eos # (Auto) (0-0.5) K/uL Baso # (Auto) (0-0.2) K/uL Immature Gran # (Auto) (0.00-0.02) K/uL Sodium (136-145) mmol/L Potassium (3.5-5.1) mmol/L Chloride (98-107) mmol/L Carbon Dioxide (21-32) mmol/L Anion Gap (3-11) BUN (7-18) mg/dl Creatinine (0.6-1.2) mg/dl Est Cr Clr Drug Dosing ml/min Est GFR ( Amer) ml/min Est GFR (Non-Af Amer) ml/min BUN/Creatinine Ratio (10-20) Glucose (70-99) mg/dl POC Glucose 111 H 95 (70-99) mg/dl Estimat Average Glucose mg/dl Hemoglobin A1c (4.5-5.6) % Calcium (8.5-10.1) mg/dl Magnesium (1.8-2.4) mg/dl Iron (35-150) mcg/dl Transferrin (200-360) mg/dl Transferrin % Sat (15-50) % Ferritin (8-388) ng/ml Vitamin B12 (193-986) pg/ml Beta-Hydroxybutyric Acd (0.2-2.81) mg/dl Procalcitonin (0-0.5) ng/ml Urine Color Urine Appearance (Clear) Urine pH (4.5-7.5) Ur Specific [place] (1.000-1.030) Urine Protein (Negative) Urine Glucose (UA) (Negative) Urine Ketones (Negative) Urine Blood (Negative) Urine Nitrite (Negative) Urine Bilirubin (Negative) Urine Urobilinogen (Negative) Ur Leukocyte Esterase (Negative) Blood Type O Positive Blood Type Recheck Antibody Screen NEGATIVE Crossmatch See Detail 08/04/21 08/04/21 08/04/21 Range/Units 21:48 21:48 21:24 WBC (4.8-10.8) K/uL RBC (4.2-5.4) M/uL Hgb 8.8 L (12.0-16.0) g/dL Hct 26.3 L (37-47) % MCV (80-100) fL MCH (25-34) pg MCHC (32-36) g/dL RDW Std Deviation (36.4-46.3) fL RDW Coeff of [place] (11.5-14.5) % Plt Count (130-400) K/uL MPV (7.4-10.4) fL Immature Gran % (Auto) % Neut % (Auto) % Lymph % (Auto) % [place] % (Auto) % Eos % (Auto) % Baso % (Auto) % Neut # (Auto) (1.4-6.5) K/uL Lymph # (Auto) (1.2-3.4) K/uL [place] # (Auto) (0.11-0.59) K/uL Eos # (Auto) (0-0.5) K/uL Baso # (Auto) (0-0.2) K/uL Immature Gran # (Auto) (0.00-0.02) K/uL Sodium (136-145) mmol/L Potassium (3.5-5.1) mmol/L Chloride (98-107) mmol/L Carbon Dioxide (21-32) mmol/L Anion Gap (3-11) BUN (7-18) mg/dl Creatinine (0.6-1.2) mg/dl Est Cr Clr Drug Dosing ml/min Est GFR ( Amer) ml/min Est GFR (Non-Af Amer) ml/min BUN/Creatinine Ratio (10-20) Glucose (70-99) mg/dl POC Glucose 98 (70-99) mg/dl Estimat Average Glucose mg/dl Hemoglobin A1c (4.5-5.6) % Calcium (8.5-10.1) mg/dl Magnesium (1.8-2.4) mg/dl Iron (35-150) mcg/dl Transferrin (200-360) mg/dl Transferrin % Sat (15-50) % Ferritin (8-388) ng/ml Vitamin B12 (193-986) pg/ml Beta-Hydroxybutyric Acd (0.2-2.81) mg/dl Procalcitonin (0-0.5) ng/ml Urine Color Urine Appearance (Clear) Urine pH (4.5-7.5) Ur Specific [place] (1.000-1.030) Urine Protein (Negative) Urine Glucose (UA) (Negative) Urine Ketones (Negative) Urine Blood (Negative) Urine Nitrite (Negative) Urine Bilirubin (Negative) Urine Urobilinogen (Negative) Ur Leukocyte Esterase (Negative) Blood Type Blood Type Recheck O Positive Antibody Screen Crossmatch 08/04/21 08/04/21 08/04/21 Range/Units 20:55 20:27 19:47 WBC (4.8-10.8) K/uL RBC (4.2-5.4) M/uL Hgb (12.0-16.0) g/dL Hct (37-47) % MCV (80-100) fL MCH (25-34) pg MCHC (32-36) g/dL RDW Std Deviation (36.4-46.3) fL RDW Coeff of [place] (11.5-14.5) % Plt Count (130-400) K/uL MPV (7.4-10.4) fL Immature Gran % (Auto) % Neut % (Auto) % Lymph % (Auto) % [place] % (Auto) % Eos % (Auto) % Baso % (Auto) % Neut # (Auto) (1.4-6.5) K/uL Lymph # (Auto) (1.2-3.4) K/uL [place] # (Auto) (0.11-0.59) K/uL Eos # (Auto) (0-0.5) K/uL Baso # (Auto) (0-0.2) K/uL Immature Gran # (Auto) (0.00-0.02) K/uL Sodium (136-145) mmol/L Potassium (3.5-5.1) mmol/L Chloride (98-107) mmol/L Carbon Dioxide (21-32) mmol/L Anion Gap (3-11) BUN (7-18) mg/dl Creatinine (0.6-1.2) mg/dl Est Cr Clr Drug Dosing ml/min Est GFR ( Amer) ml/min Est GFR (Non-Af Amer) ml/min BUN/Creatinine Ratio (10-20) Glucose (70-99) mg/dl POC Glucose 98 120 H 143 H (70-99) mg/dl Estimat Average Glucose mg/dl Hemoglobin A1c (4.5-5.6) % Calcium (8.5-10.1) mg/dl Magnesium (1.8-2.4) mg/dl Iron (35-150) mcg/dl Transferrin (200-360) mg/dl Transferrin % Sat (15-50) % Ferritin (8-388) ng/ml Vitamin B12 (193-986) pg/ml Beta-Hydroxybutyric Acd (0.2-2.81) mg/dl Procalcitonin (0-0.5) ng/ml Urine Color Urine Appearance (Clear) Urine pH (4.5-7.5) Ur Specific [place] (1.000-1.030) Urine Protein (Negative) Urine Glucose (UA) (Negative) Urine Ketones (Negative) Urine Blood (Negative) Urine Nitrite (Negative) Urine Bilirubin (Negative) Urine Urobilinogen (Negative) Ur Leukocyte Esterase (Negative) Blood Type Blood Type Recheck Antibody Screen Crossmatch 08/04/21 08/04/21 08/04/21 Range/Units 18:42 17:20 16:31 WBC (4.8-10.8) K/uL RBC (4.2-5.4) M/uL Hgb (12.0-16.0) g/dL Hct (37-47) % MCV (80-100) fL MCH (25-34) pg MCHC (32-36) g/dL RDW Std Deviation (36.4-46.3) fL RDW Coeff of [place] (11.5-14.5) % Plt Count (130-400) K/uL MPV (7.4-10.4) fL Immature Gran % (Auto) % Neut % (Auto) % Lymph % (Auto) % [place] % (Auto) % Eos % (Auto) % Baso % (Auto) % Neut # (Auto) (1.4-6.5) K/uL Lymph # (Auto) (1.2-3.4) K/uL [place] # (Auto) (0.11-0.59) K/uL Eos # (Auto) (0-0.5) K/uL Baso # (Auto) (0-0.2) K/uL Immature Gran # (Auto) (0.00-0.02) K/uL Sodium (136-145) mmol/L Potassium (3.5-5.1) mmol/L Chloride (98-107) mmol/L Carbon Dioxide (21-32) mmol/L Anion Gap (3-11) BUN (7-18) mg/dl Creatinine (0.6-1.2) mg/dl Est Cr Clr Drug Dosing ml/min Est GFR ( Amer) ml/min Est GFR (Non-Af Amer) ml/min BUN/Creatinine Ratio (10-20) Glucose (70-99) mg/dl POC Glucose 219 H 197 H 225 H (70-99) mg/dl Estimat Average Glucose mg/dl Hemoglobin A1c (4.5-5.6) % Calcium (8.5-10.1) mg/dl Magnesium (1.8-2.4) mg/dl Iron (35-150) mcg/dl Transferrin (200-360) mg/dl Transferrin % Sat (15-50) % Ferritin (8-388) ng/ml Vitamin B12 (193-986) pg/ml Beta-Hydroxybutyric Acd (0.2-2.81) mg/dl Procalcitonin (0-0.5) ng/ml Urine Color Urine Appearance (Clear) Urine pH (4.5-7.5) Ur Specific [place] (1.000-1.030) Urine Protein (Negative) Urine Glucose (UA) (Negative) Urine Ketones (Negative) Urine Blood (Negative) Urine Nitrite (Negative) Urine Bilirubin (Negative) Urine Urobilinogen (Negative) Ur Leukocyte Esterase (Negative) Blood Type Blood Type Recheck Antibody Screen Crossmatch 08/04/21 08/04/21 08/04/21 Range/Units 15:25 13:47 12:55 WBC (4.8-10.8) K/uL RBC (4.2-5.4) M/uL Hgb (12.0-16.0) g/dL Hct (37-47) % MCV (80-100) fL MCH (25-34) pg MCHC (32-36) g/dL RDW Std Deviation (36.4-46.3) fL RDW Coeff of [place] (11.5-14.5) % Plt Count (130-400) K/uL MPV (7.4-10.4) fL Immature Gran % (Auto) % Neut % (Auto) % Lymph % (Auto) % [place] % (Auto) % Eos % (Auto) % Baso % (Auto) % Neut # (Auto) (1.4-6.5) K/uL Lymph # (Auto) (1.2-3.4) K/uL [place] # (Auto) (0.11-0.59) K/uL Eos # (Auto) (0-0.5) K/uL Baso # (Auto) (0-0.2) K/uL Immature Gran # (Auto) (0.00-0.02) K/uL Sodium (136-145) mmol/L Potassium (3.5-5.1) mmol/L Chloride (98-107) mmol/L Carbon Dioxide (21-32) mmol/L Anion Gap (3-11) BUN (7-18) mg/dl Creatinine (0.6-1.2) mg/dl Est Cr Clr Drug Dosing ml/min Est GFR ( Amer) ml/min Est GFR (Non-Af Amer) ml/min BUN/Creatinine Ratio (10-20) Glucose (70-99) mg/dl POC Glucose 298 H 291 H 272 H (70-99) mg/dl Estimat Average Glucose mg/dl Hemoglobin A1c (4.5-5.6) % Calcium (8.5-10.1) mg/dl Magnesium (1.8-2.4) mg/dl Iron (35-150) mcg/dl Transferrin (200-360) mg/dl Transferrin % Sat (15-50) % Ferritin (8-388) ng/ml Vitamin B12 (193-986) pg/ml Beta-Hydroxybutyric Acd (0.2-2.81) mg/dl Procalcitonin (0-0.5) ng/ml Urine Color Urine Appearance (Clear) Urine pH (4.5-7.5) Ur Specific [place] (1.000-1.030) Urine Protein (Negative) Urine Glucose (UA) (Negative) Urine Ketones (Negative) Urine Blood (Negative) Urine Nitrite (Negative) Urine Bilirubin (Negative) Urine Urobilinogen (Negative) Ur Leukocyte Esterase (Negative) Blood Type Blood Type Recheck Antibody Screen Crossmatch 08/04/21 08/04/21 08/04/21 Range/Units 12:55 12:55 12:00 WBC (4.8-10.8) K/uL RBC (4.2-5.4) M/uL Hgb 10.6 L (12.0-16.0) g/dL Hct 32.0 L (37-47) % MCV (80-100) fL MCH (25-34) pg MCHC (32-36) g/dL RDW Std Deviation (36.4-46.3) fL RDW Coeff of [place] (11.5-14.5) % Plt Count (130-400) K/uL MPV (7.4-10.4) fL Immature Gran % (Auto) % Neut % (Auto) % Lymph % (Auto) % [place] % (Auto) % Eos % (Auto) % Baso % (Auto) % Neut # (Auto) (1.4-6.5) K/uL Lymph # (Auto) (1.2-3.4) K/uL [place] # (Auto) (0.11-0.59) K/uL Eos # (Auto) (0-0.5) K/uL Baso # (Auto) (0-0.2) K/uL Immature Gran # (Auto) (0.00-0.02) K/uL Sodium (136-145) mmol/L Potassium (3.5-5.1) mmol/L Chloride (98-107) mmol/L Carbon Dioxide (21-32) mmol/L Anion Gap (3-11) BUN (7-18) mg/dl Creatinine (0.6-1.2) mg/dl Est Cr Clr Drug Dosing ml/min Est GFR ( Amer) ml/min Est GFR (Non-Af Amer) ml/min BUN/Creatinine Ratio (10-20) Glucose (70-99) mg/dl POC Glucose 264 H (70-99) mg/dl Estimat Average Glucose mg/dl Hemoglobin A1c (4.5-5.6) % Calcium (8.5-10.1) mg/dl Magnesium (1.8-2.4) mg/dl Iron (35-150) mcg/dl Transferrin (200-360) mg/dl Transferrin % Sat (15-50) % Ferritin (8-388) ng/ml Vitamin B12 (193-986) pg/ml Beta-Hydroxybutyric Acd (0.2-2.81) mg/dl Procalcitonin 5.70 H (0-0.5) ng/ml Urine Color Urine Appearance (Clear) Urine pH (4.5-7.5) Ur Specific [place] (1.000-1.030) Urine Protein (Negative) Urine Glucose (UA) (Negative) Urine Ketones (Negative) Urine Blood (Negative) Urine Nitrite (Negative) Urine Bilirubin (Negative) Urine Urobilinogen (Negative) Ur Leukocyte Esterase (Negative) Blood Type Blood Type Recheck Antibody Screen Crossmatch 08/04/21 08/04/21 08/04/21 Range/Units 09:34 08:44 06:15 WBC (4.8-10.8) K/uL RBC (4.2-5.4) M/uL Hgb (12.0-16.0) g/dL Hct (37-47) % MCV (80-100) fL MCH (25-34) pg MCHC (32-36) g/dL RDW Std Deviation (36.4-46.3) fL RDW Coeff of [place] (11.5-14.5) % Plt Count (130-400) K/uL MPV (7.4-10.4) fL Immature Gran % (Auto) % Neut % (Auto) % Lymph % (Auto) % [place] % (Auto) % Eos % (Auto) % Baso % (Auto) % Neut # (Auto) (1.4-6.5) K/uL Lymph # (Auto) (1.2-3.4) K/uL [place] # (Auto) (0.11-0.59) K/uL Eos # (Auto) (0-0.5) K/uL Baso # (Auto) (0-0.2) K/uL Immature Gran # (Auto) (0.00-0.02) K/uL Sodium (136-145) mmol/L Potassium (3.5-5.1) mmol/L Chloride (98-107) mmol/L Carbon Dioxide (21-32) mmol/L Anion Gap (3-11) BUN (7-18) mg/dl Creatinine (0.6-1.2) mg/dl Est Cr Clr Drug Dosing ml/min Est GFR ( Amer) ml/min Est GFR (Non-Af Amer) ml/min BUN/Creatinine Ratio (10-20) Glucose (70-99) mg/dl POC Glucose 241 H 232 H (70-99) mg/dl Estimat Average Glucose mg/dl Hemoglobin A1c (4.5-5.6) % Calcium (8.5-10.1) mg/dl Magnesium 1.9 (1.8-2.4) mg/dl Iron 19 L (35-150) mcg/dl Transferrin (200-360) mg/dl Transferrin % Sat (15-50) % Ferritin (8-388) ng/ml Vitamin B12 (193-986) pg/ml Beta-Hydroxybutyric Acd (0.2-2.81) mg/dl Procalcitonin (0-0.5) ng/ml Urine Color Urine Appearance (Clear) Urine pH (4.5-7.5) Ur Specific [place] (1.000-1.030) Urine Protein (Negative) Urine Glucose (UA) (Negative) Urine Ketones (Negative) Urine Blood (Negative) Urine Nitrite (Negative) Urine Bilirubin (Negative) Urine Urobilinogen (Negative) Ur Leukocyte Esterase (Negative) Blood Type Blood Type Recheck Antibody Screen Crossmatch 08/04/21 08/04/21 Range/Units 06:15 06:15 WBC (4.8-10.8) K/uL RBC (4.2-5.4) M/uL Hgb (12.0-16.0) g/dL Hct (37-47) % MCV (80-100) fL MCH (25-34) pg MCHC (32-36) g/dL RDW Std Deviation (36.4-46.3) fL RDW Coeff of [place] (11.5-14.5) % Plt Count (130-400) K/uL MPV (7.4-10.4) fL Immature Gran % (Auto) % Neut % (Auto) % Lymph % (Auto) % [place] % (Auto) % Eos % (Auto) % Baso % (Auto) % Neut # (Auto) (1.4-6.5) K/uL Lymph # (Auto) (1.2-3.4) K/uL [place] # (Auto) (0.11-0.59) K/uL Eos # (Auto) (0-0.5) K/uL Baso # (Auto) (0-0.2) K/uL Immature Gran # (Auto) (0.00-0.02) K/uL Sodium (136-145) mmol/L Potassium (3.5-5.1) mmol/L Chloride (98-107) mmol/L Carbon Dioxide (21-32) mmol/L Anion Gap (3-11) BUN (7-18) mg/dl Creatinine (0.6-1.2) mg/dl Est Cr Clr Drug Dosing ml/min Est GFR ( Amer) ml/min Est GFR (Non-Af Amer) ml/min BUN/Creatinine Ratio (10-20) Glucose (70-99) mg/dl POC Glucose (70-99) mg/dl Estimat Average Glucose 324 mg/dl Hemoglobin A1c 12.9 H (4.5-5.6) % Calcium (8.5-10.1) mg/dl Magnesium (1.8-2.4) mg/dl Iron (35-150) mcg/dl Transferrin (200-360) mg/dl Transferrin % Sat (15-50) % Ferritin (8-388) ng/ml Vitamin B12 (193-986) pg/ml Beta-Hydroxybutyric Acd 0.72 (0.2-2.81) mg/dl Procalcitonin (0-0.5) ng/ml Urine Color Urine Appearance (Clear) Urine pH (4.5-7.5) Ur Specific [place] (1.000-1.030) Urine Protein (Negative) Urine Glucose (UA) (Negative) Urine Ketones (Negative) Urine Blood (Negative) Urine Nitrite (Negative) Urine Bilirubin (Negative) Urine Urobilinogen (Negative) Ur Leukocyte Esterase (Negative) Blood Type Blood Type Recheck Antibody Screen Crossmatch
[2021-08-05] MEDS: cephALEXin 500 MG CAP PO SCH ×4 (08:59→20:55)
[2021-08-05] MEDS ORDERED: INSULIN GLARGINE SOLOSTAR 100 UNITS/ML 3 ML PEN SC SCH ×2 (09:00→16:30)
[2021-08-05] MEDS ORDERED: IRON SUCROSE 300 MG in SODIUM CHLORIDE 0.9% 250 ML IV ONE (10:00)
[2021-08-05 10:44] LABS: Albumin Level 2.1 gm/dl (3.4-5.0); Prealbumin 10.3 mg/dl (20-40); Thyroid Stimulating Hormone 0.265 uIu/ml (0.300-4.500)
[2021-08-05] MEDS ORDERED: POLYETHYLENE (MIRALAX) 17 GM PACK PO PRN (11:26)
[2021-08-05] MEDS: DOCUSATE SODIUM 100 MG CAP PO SCH ×2 (12:25→20:55)
--- NOTE | 2021-08-05 13:38 | XRay Report ---
XR chest 1V portable HISTORY: 51 years-old Female crackles on auscultation acute shortness of breath COMPARISON: Chest radiograph 08/03/2021 TECHNIQUE: Portable AP view of the chest FINDINGS: Cardiac silhouette is normal in size. [place] lobe and fissure. Mild interstitial coarsening with impr tonja aeration of the lungs. Status post extubation. No pneumothorax or large pleural effusion. Unchan ged positioning of the bilateral chest tubes. IMPRESSION: 1. Mildly improved aeration of the lung status post extubation. 2. Unchanged positioning of the bilateral chest tubes. 3. No pneumothorax. ACT 112: Negative or not required by law. The above report was generated using voice recognition software. It may contain grammatical, syntax o r spelling errors. Electronically signed by: Genaro Ivan M.D. 08/05/2021 1:36 PM
--- NOTE | 2021-08-05 14:22 | Pharmacy Report ---
Pharmacy Glycemic Short Note 2 - Date of Service August 05, 2021 - Glycemic Short BSG Results (Last 24 hours): 08/04/21 08/04/21 08/04/21 15:25 16:31 17:20 Glucose POC Glucose 298 H 225 H 197 H 08/04/21 08/04/21 08/04/21 18:42 19:47 20:27 Glucose POC Glucose 219 H 143 H 120 H 08/04/21 08/04/21 08/04/21 20:55 21:24 22:01 Glucose POC Glucose 98 98 95 08/04/21 08/05/21 08/05/21 23:07 01:00 03:58 Glucose POC Glucose 111 H 121 H 111 H 08/05/21 08/05/21 08/05/21 05:23 05:59 07:38 Glucose 107 H POC Glucose 107 H 103 H 08/05/21 11:34 Glucose POC Glucose 143 H OUTPATIENT ANTIDIABETIC REGIMEN: * Levemir 25 units qam * Humalog 5 units qam * Tradjenta 5mg qam ASSESSMENT: 08/05: * Carmel received 32 units of SQ insulin over the past 24 hours in addition to IV insulin infusion * Fasting BSG of 107 mg/dL this morning is at goal. Will continue to titrate basal insulin with plan of transitioning back to once daily administration since this is how patient administers Levemir at home * Novolog orders appear to be effective based on lunch BSG of 143 mg/dL 08/04: * Patient was started on IV insulin drip overnight for blood sugars consistently above 300 mg/dl in spite of basal Lantus dose given last night and Novolog bolus coverage. * Fasting BSG today AM was at 308 mg/dl. AM dose of Lantus 22 units x1 given today. IV insulin drip was increased up to 7 units/hr this AM. Blood sugars finally came down to 242 mg/dl before patient was taken back to OR today for chest hematoma. * BSG at noon = 264 mg/dl. Additional 10 units of Lantus ordered. * Overall, patient has received around an average of 33 units of insulin via insulin drip in the last 6 hrs. * Plan is to d/c insulin drip today once BSGs consistently below 200 mg/dl. 08/03/21: * Patient s/p B/L mastectomy and sentinel node biopsy * Provider and RN confirmed with patient that she did not take her levemir this morning. Patient did tolerate a clear liquid diet for dinner * RN confirmed that dexamethasone was not given in the OR * Will administer home basal dose X 1 tonight with a moderate stress novolog scale and monitor BSG trends with overnight checks PLAN FOR INPATIENT GLYCEMIC CONTROL: * Hold outpatient oral diabetes medications * Basal insulin * Lantus 10 units SQ this AM * Lantus 10-15 units SQ with dinner * Bolus insulin: * NovoLog per scale ACHS or Q6hrs while NPO * Goal Range: Low 110 mg/dL - High 140 mg/dL * Correction Factor: 20 mg/dL/unit * Nutritional / Prandial insulin per carb ratio of 1 unit per 6 grams CHO consumed PLAN FOR DISCHARGE: * TBD
--- NOTE | 2021-08-05 16:08 | Hospitalist Progress Note ---
Date of Service August 05, 2021 Assessment & Plan (1) Hematoma: Plan: POD# 2 s/p bilateral mastectomy with Dr Degroot. Pre-op hgb 16.3 --> 12.2 --> 11.9 developed hypotension/tachycardia post-operatively with lightheadedness/dizziness IVF bolus provided, increased IVF rate to 100cc/hr Increased APRIL output and hematoma to L breast Taken back to OR on 08/[address] Degroot for evacuation of LEFT BREAST hematoma, stop of small arterial bleeder seen inferiorly within the pectoralis muscle as well as placement of new jomar drain to L side Given ancef for abx pre-op but discussed with surgery and they plan on a couple of weeks of Keflex given prior infection but suspected elevated WBC (21.5k) from stress/bleeding/surgery and no concerns for infections at this time Procalcitonin --> ELEVATED AT 5.7. Continue to monitor CBC, BP, and HR. Advance diet as tolerated. (2) Acute blood loss anemia: Plan: 2nd to sugery and hematoma as above H&H slightly improved to 9.1 and 28.8 today. Iron checked -- low at 18. Has received 2 doses of Venofer. Plan for 3rd dose tomorrow. Continue to monitor APRIL output/blood counts closely CBC in AM (3) Tachycardia: Plan: Likely 2nd to bleeding/pain/iron deficiency anemia no sob/cp reported EKG repeated today showing sinus tachycardia. Continue to monitor. TSH was noted to be 0.265 this AM. While low, not likely the culprit at this time. (4) Hypotension: Plan: Losartan on hold. BP of 99/55 this AM, improved to 111/68 this afternoon. Patient was receiving IVF. Will d/c today as she appears to be volume overloaded with crackles on auscultation. Chest XR ordered---> mild interstitial coarsening with improved aeration of lungs Continue to monitor. (5) Ductal carcinoma in situ (DCIS) of left breast: Plan: POD #2 s/p prophylactic bilateral mastectomy - See above regarding post-op hematoma/hypotension/tachycardia (6) Hypertension: Plan: Takes Losartan at home. Holding d/t hypotension while inpatient. BP initially 99/55 this AM. Improved to 111/68 this afternoon. (7) Diabetes: Plan: Poorly controlled with HgbA1C 12.9 on 08/04/21. Pharmacy glycemic management consult placed. Glucose improved to 107 this AM. 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 (8) Chronic depression: Plan: Continue paroxetine (9) Asthma: Plan: Denies SOB today, but bilateral crackles noted on exam. Chest XR ordered---> mild interstitial coarsening with improved aeration of lungs Has Albuterol ordered PRN. (10) Hypothyroidism: Plan: TSH 0.265 this AM. T4 and free T3 pending. - on levothyroxine 50mcg at home. Continue home dosing. (11) DVT prophylaxis: Plan: SCDs. Avoid chemical prophylaxis in the setting of post-operative bleed. Admission and Anticipated Discharge Date Admission Date: August 04, 2021 Supervising Physician Co-Signing Physician Notes Attending Attestation - Chart reviewed in detail, care plan d/w MARKO Payton. I agree w/ the quinn components of her documentation. Salbador Craven MD Subjective Patient reports pain is improved. Denies recent BM. She has not been out of bed. States she is feeling better overall. Review of Systems Review of Systems: All systems reviewed & are unremarkable except as noted in Subjective Physical Exam Physical Exam: Temp Pulse Resp BP Pulse Ox 37.0 C 109 H 18 111/68 95 08/05/21 16:09 08/05/21 16:09 08/05/21 16:09 08/05/21 16:09 08/05/21 16:09 Patient is afebrile. She remains tachycardic at 110. Constitutional: + obese; no acute distress Eyes: + anicteric sclerae ENMT: Ears: no hearing impairment Neck: normal visual inspection Respiratory: no respiratory distress Auscultation: + crackles (bilateral ) Cardiovascular: Rate/Rhythm: regular rhythm and + tachycardic Vessels: no JVD Extremities: + edema (non-pitting ) Gastrointestinal (Abdomen): Inspection/Auscultation: normal bowel sounds Percussion/Palpation: abdomen soft; abdomen nontender Musculoskeletal: Head/Neck/Chest: normocephalic Psychiatric: A+Ox3, euthymic affect Results & Data Results & Data ([facility]) Vital Signs (Past 12 Hours) Vital Signs Temp Pulse Pulse Pulse Resp BP Pulse Ox 08/05/21 15:03 110 H 08/05/21 11:48 36.7 C 109 H 20 126/69 94 08/05/21 10:34 36.6 C 115 H 20 101/61 94 08/05/21 07:53 112 H 08/05/21 07:05 36.7 C 114 H 17 99/55 L 94 PG Care Time/CCT Total # of Minutes Spent Total Time Spent with Patient: Total time spent is greater than 50% in coordination of care (as documented) at patient's floor/unit and/or counseling patient: Coding Level of Care Code 24939 Subseq Hosp Care Lvl 3 Diagnoses Hematoma T14.8XXA Acute blood loss anemia D62 Tachycardia R00.0 Hypotension I95.9 Ductal carcinoma in situ (DCIS) of left breast D05.12 Hypertension I10 Diabetes E11.9 Chronic depression F32.9 Asthma J45.909 Hypothyroidism E03.9 DVT prophylaxis Z29.9
[2021-08-05] MEDS: oxyCODONE HCL IR 5 MG TAB (IMMEDIATE RELEASE) PO PRN (20:54)
[2021-08-05] MEDS: MONTELUKAST SODIUM 10 MG TABLET PO SCH (20:56)
[2021-08-05] MEDS: rOPINIRole HCL 0.25 MG TABLET PO SCH (20:57)
--- NOTE | 2021-08-06 07:14 | Electrocardiogram Report ---
Test Reason : Blood Pressure : / mmHG Vent. Rate : 106 BPM Atrial Rate : 106 BPM P-R Int : 122 ms QRS Dur : 080 ms QT Int : 312 ms P-R-T Axes : 051 059 007 degrees QTc Int : 414 ms Sinus tachycardia Nonspecific T wave abnormality When compared with ECG of 21-JUN-2021 14:38, Nonspecific T wave abnormality now evident in Inferior leads Confirmed by Idris Pedro [id number]) on 08/06/2021 7:14:05 AM Referred By: Edvin Degroot Confirmed By:Idris Pedro
[2021-08-06 08:02] LABS: Basophils # (auto) 0.02 K/uL (0-0.2); Basophils % (auto) 0.2 %; Eosinophils # (auto) 0.42 K/uL (0-0.5); Eosinophils % (auto) 3.3 %; Hematocrit (blood only) 26.3 % (37-47); Hemoglobin 8.6 g/dL (12.0-16.0); Immature Granulocytes # (auto) 0.06 K/uL (0.00-0.02); Immature Granulocytes % (auto) 0.5 %; Lymphocytes # (auto) 3.44 K/uL (1.2-3.4); Lymphocytes % (auto) 27.2 %; Mean Corpuscular Hemoglobin 30.2 pg (25-34); Mean Corpuscular Hgb Conc 32.7 g/dL (32-36); Mean Corpuscular Volume 92.3 fL (80-100); Monocytes # (auto) 1.26 K/uL (0.11-0.59); Neutrophils # (auto) 7.45 K/uL (1.4-6.5); Neutrophils % (auto) 58.8 %; Platelet Count 213 K/uL (130-400); Red Blood Count 2.85 M/uL (4.2-5.4); White Blood Count 12.65 K/uL (4.8-10.8)
[2021-08-06] MEDS: PANTOprazole 40 MG TAB PO SCH (08:19)
[2021-08-06] MEDS: PARoxetine HCL 10 MG TAB PO SCH (08:20)
[2021-08-06] MEDS: LEVOTHYROXINE SODIUM 50 MCG TABLET PO SCH (08:20)
[2021-08-06] MEDS: LORATADINE 10 MG TAB PO SCH (08:20)
[2021-08-06] MEDS: ASPIRIN 81 MG ECTAB PO SCH (08:21)
[2021-08-06] MEDS: cephALEXin 500 MG CAP PO SCH ×4 (08:21→20:44)
[2021-08-06] MEDS: DOCUSATE SODIUM 100 MG CAP PO SCH ×2 (08:21→20:45)
[2021-08-06] MEDS: PREGABALIN 150 MG CAP PO SCH ×3 (08:24→20:46)
[2021-08-06 08:26] LABS: BUN Creatinine Ratio 15.8 (10-20); Calcium 8.3 mg/dl (8.5-10.1); Creatinine Clr Calc Pharmacy 148.8 ml/min; Est GFR (African American) 129.8 ml/min; Magnesium 1.9 mg/dl (1.8-2.4); Potassium 3.6 mmol/L (3.5-5.1)
[2021-08-06] MEDS: INSULIN ASPART 100 UNITS/ML 3 ML PEN SC SCH ×4 (08:28→20:45)
[2021-08-06] MEDS: INSULIN GLARGINE SOLOSTAR 100 UNITS/ML 3 ML PEN SC SCH (08:31)
[2021-08-06] MEDS ORDERED: IRON SUCROSE 300 MG in SODIUM CHLORIDE 0.9% 250 ML IV ONE (10:00)
--- NOTE | 2021-08-06 10:55 | Surgery Progress Note ---
Date of Service August 06, 2021 Assessment & Plan (1) S/P bilateral mastectomy: Plan: complicated by left sided bleed requiring return to OR and evacuation of hematoma. Required 1 unit PRBC postop. On venofer. Overall improving today - still high left drain output but less bloody. H/H stable. Diabetes - management as per medicine. Sugars are running in low 100s D/c garrett. Increase activity. Likely home tomorrow. Admission and Anticipated Discharge Date Admission Date: August 04, 2021 Subjective Overall better today. Pain under control. Receiving venofer. Able to wean off of oxygen. Tolerating diet. Garrett is still in place and has not ambulated much. Physical Exam Cardiovascular: Rate/Rhythm: + tachycardic (HR lower than yesterday) Heart Sounds: no murmur Chest (Breasts): Additional Comments: s/p bilateral mastectomies, chest incisions are clean and intact, some bruising of left superior flap. L APRIL less bloody (more serosanguinous) than yesterday - 335 cc. Right APRIL serosanguinous 95 cc. Neurologic: awake; no focal motor deficits Psychiatric: A+Ox3, euthymic affect Results & Data ([facility]) Vital Signs (Past 12 Hours) Vital Signs Temp Pulse Pulse Resp BP Pulse Ox 08/06/21 07:48 36.9 C 104 H 18 131/67 93 08/06/21 07:24 101 H 08/06/21 03:25 36.8 C 105 H 18 141/78 H 93 Laboratory Results Abnormal lab results 08/05/21 08/05/21 08/06/21 Range/Units 11:34 16:43 07:21 WBC (4.8-10.8) K/uL RBC (4.2-5.4) M/uL Hgb (12.0-16.0) g/dL Hct (37-47) % Neut # (Auto) (1.4-6.5) K/uL Lymph # (Auto) (1.2-3.4) K/uL [place] # (Auto) (0.11-0.59) K/uL Immature Gran # (Auto) (0.00-0.02) K/uL Chloride (98-107) mmol/L Creatinine (0.6-1.2) mg/dl Glucose (70-99) mg/dl POC Glucose 143 H 112 H 129 H (70-99) mg/dl Calcium (8.5-10.1) mg/dl 08/06/21 08/06/21 Range/Units 07:30 07:30 WBC 12.65 H (4.8-10.8) K/uL RBC 2.85 L (4.2-5.4) M/uL Hgb 8.6 L (12.0-16.0) g/dL Hct 26.3 L (37-47) % Neut # (Auto) 7.45 H (1.4-6.5) K/uL Lymph # (Auto) 3.44 H (1.2-3.4) K/uL [place] # (Auto) 1.26 H (0.11-0.59) K/uL Immature Gran # (Auto) 0.06 H (0.00-0.02) K/uL Chloride 110 H (98-107) mmol/L Creatinine 0.48 L (0.6-1.2) mg/dl Glucose 120 H (70-99) mg/dl POC Glucose (70-99) mg/dl Calcium 8.3 L (8.5-10.1) mg/dl
--- NOTE | 2021-08-06 13:34 | Hospitalist Progress Note ---
Date of Service August 06, 2021 Assessment & Plan (1) Hematoma: Plan: POD#3 s/p bilateral mastectomy with Dr Degroot. - Developed hypotension and tachycardia with lightheadedness/dizziness post- operatively. Developed post-op hematoma of the left chest wall, and underwent evacuation in the OR on 08/04. POD #2. - Noted to be iron deficient post-op with level of 18. H&H with slight trend down to 8.6 and 26.3 this AM. She has received 2 doses of IV Venofer. Will order 3rd dose today. - Serosanguineous drainage noted in drains this AM. Output of 230ml yesterday. - Continue to monitor H&H - WBC count improving. 12.65 today. Patient to continue several weeks of Keflex per gen surg. -Continue to monitor. - Will d/c garrett catheter today. - Encourage ambulation to hallway. - Pain control per primary service. - Diet advanced yesterday. Carb consistent. Nutrition consulted for supplementation as albumin was low. [place] Boost ordered BID. (2) Acute blood loss anemia: Plan: 2nd to surgery and hematoma as above Continue to monitor. (3) Tachycardia: Plan: Persistent, but improved. Likely 2nd to bleeding/pain/iron deficiency anemia no sob/cp reported EKG repeated yesterday showing sinus tachycardia. Continue to monitor. TSH was noted to be 0.265 this AM. While low, not likely the culprit at this time. May need to consider further outpatient evaluation if not resolved at time of discharge. (4) Hypotension: Plan: Losartan on hold. BP improved at 118/64. IVF discontinued yesterday d/t crackles on auscultation and she appeared hypervolemic. Negative fluid balance today. Continue to monitor. (5) Ductal carcinoma in situ (DCIS) of left breast: Plan: POD #3 s/p prophylactic bilateral mastectomy - See above regarding post-op hematoma/hypotension/tachycardia (6) Hypertension: Plan: Takes Losartan at home. Holding d/t hypotension while inpatient. BP stable at 118/64 today. (7) Diabetes: Plan: Poorly controlled with HgbA1C 12.9 on 08/04/21. Pharmacy glycemic management consult placed. Glucose improved from 300s-400s 2 days ago. 120 this AM. 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 (8) Chronic depression: Plan: Continue paroxetine (9) Asthma: Plan: Stable. Denies SOB today. Bilateral crackles noted on exam yesterday have resolved with discontinuation of IVF. Chest XR ordered yesterday---> mild interstitial coarsening with improved aeration of lungs. Has Albuterol ordered PRN. (10) Hypothyroidism: Plan: TSH 0.265 this AM. T4 and free T3 pending. - on levothyroxine 50mcg at home. Continue home dosing. (11) DVT prophylaxis: Plan: SCDs. Avoid chemical prophylaxis in the setting of post-operative bleed. Admission and Anticipated Discharge Date Admission Date: August 04, 2021 Supervising Physician Co-Signing Physician Notes Attending Attestation - Chart reviewed in detail, care plan d/w MARKO Payton. I agree w/ the quinn components of her documentation. s/p bilateral mastectomy - POD #3 from such. Complicated by post-op hematoma formation with acute blood loss anemia and hypotension/tachycardia transiently. Latter resolved. Pt now progressing. Salbador Craven MD Subjective Patient states she is feeling much better today. Pain improved. Denies n/v. No BM. Feels she will move her bowels if she can get up and walk. She would like her garrett catheter removed as well. Review of Systems Review of Systems: All systems reviewed & are unremarkable except as noted in Subjective Physical Exam Physical Exam: Temp Pulse Resp BP Pulse Ox 36.7 C 105 H 18 118/64 97 08/06/21 11:30 08/06/21 11:30 08/06/21 11:30 08/06/21 11:30 08/06/21 11:30 Patient is afebrile. She remains tachycardic at 105. Constitutional: + obese; no acute distress Eyes: + anicteric sclerae ENMT: Ears: no hearing impairment Neck: normal visual inspection Respiratory: normal respiratory effort, lungs clear to auscultation Cardiovascular: Rate/Rhythm: regular rhythm and + tachycardic Vessels: no JVD Gastrointestinal (Abdomen): Inspection/Auscultation: normal bowel sounds Percussion/Palpation: abdomen soft; abdomen nontender Musculoskeletal: Head/Neck/Chest: normocephalic Psychiatric: A+Ox3, euthymic affect Results & Data Results & Data ([facility]) Vital Signs (Past 12 Hours) Vital Signs Temp Pulse Pulse Pulse Resp BP BP 08/06/21 11:30 36.7 C 105 H 18 118/64 08/06/21 07:48 36.9 C 104 H 18 131/67 08/06/21 07:24 101 H 08/06/21 03:25 36.8 C 105 H 18 141/78 H Pulse Ox 08/06/21 11:30 97 08/06/21 07:48 93 08/06/21 07:24 08/06/21 03:25 93 PG Care Time/CCT Total # of Minutes Spent Total Time Spent with Patient: Total time spent is greater than 50% in coordination of care (as documented) at patient's floor/unit and/or counseling patient: Coding Level of Care Code 03475 Subseq Hosp Care Lvl 3 Diagnoses Hematoma T14.8XXA Acute blood loss anemia D62 Tachycardia R00.0 Hypotension I95.9 Ductal carcinoma in situ (DCIS) of left breast D05.12 Hypertension I10 Diabetes E11.9 Chronic depression F32.9 Asthma J45.909 Hypothyroidism E03.9 DVT prophylaxis Z29.9
[2021-08-06] MEDS: ACETAMINOPHEN 325 MG TAB PO PRN (17:01)
[2021-08-06] MEDS: MONTELUKAST SODIUM 10 MG TABLET PO SCH (20:46)
[2021-08-06] MEDS: rOPINIRole HCL 0.25 MG TABLET PO SCH (20:47)
[2021-08-06] MEDS: oxyCODONE HCL IR 5 MG TAB (IMMEDIATE RELEASE) PO PRN (20:49)
[2021-08-07 07:48] LABS: Basophils # (auto) 0.02 K/uL (0-0.2); Basophils % (auto) 0.2 %; Eosinophils # (auto) 0.75 K/uL (0-0.5); Eosinophils % (auto) 5.7 %; Hematocrit (blood only) 27.1 % (37-47); Hemoglobin 8.8 g/dL (12.0-16.0); Immature Granulocytes # (auto) 0.04 K/uL (0.00-0.02); Immature Granulocytes % (auto) 0.3 %; Lymphocytes # (auto) 3.81 K/uL (1.2-3.4); Mean Corpuscular Hemoglobin 29.8 pg (25-34); Mean Corpuscular Hgb Conc 32.5 g/dL (32-36); Mean Corpuscular Volume 91.9 fL (80-100); Mean Platelet Volume 10.1 fL (7.4-10.4); Monocytes % (auto) 10.7 %; Neutrophils # (auto) 7.12 K/uL (1.4-6.5); Neutrophils % (auto) 54.1 %; Platelet Count 252 K/uL (130-400); RDW Coefficient of Variation 12.9 % (11.5-14.5); RDW Standard Deviation 42.8 fL (36.4-46.3); Red Blood Count 2.95 M/uL (4.2-5.4); White Blood Count 13.14 K/uL (4.8-10.8)
--- NOTE | 2021-08-07 07:59 | Surgery Progress Note ---
Date of Service August 07, 2021 Assessment & Plan (1) Ductal carcinoma in situ (DCIS) of left breast: Plan: POD 3/4 bilat mastectomies, left SLN bx, evac left hematoma H/H stable 08/07 likely d/c later today Admission and Anticipated Discharge Date Admission Date: August 04, 2021 Supervising Physician Co-Signing Physician Notes I personally saw and evaluated the patient with Jose Carlos Cardoso PA-C and agree with the assessment and plan. 51 yo female s/p Bilateral Mastectomy with L SLNB, evacuation of left chest hematoma -She is much improved and Hgb stable -Will d/c today with 7 day course of Keflex, drains in place -She has follow up with me in 1 week Subjective feels better, less pain more energy Physical Exam Chest (Breasts): Additional Comments: left drain 15 cc per shift, serosang right 10 cc Results & Data ([facility]) Vital Signs (Past 12 Hours) Vital Signs Temp Pulse Pulse Resp BP Pulse Ox 08/07/21 07:53 94 H 08/07/21 07:00 36.8 C 88 18 124/71 98 08/07/21 02:49 90 18 129/76 97 08/06/21 22:20 95 H 08/06/21 21:54 36.7 C 99 H 18 149/77 H 98 PG Care Time/CCT Total # of Minutes Spent Total Time Spent with Patient: Total time spent is greater than 50% in coordination of care (as documented) at patient's floor/unit and/or counseling patient: Coding Level of Care Code None Diagnoses Ductal carcinoma in situ (DCIS) of left breast D05.12
[2021-08-07 08:12] LABS: BUN Creatinine Ratio 13.6 (10-20); Calcium 8.8 mg/dl (8.5-10.1); Creatinine Clr Calc Pharmacy 130.1 ml/min; Est GFR (African American) 124.9 ml/min; Est GFR (Non-African American) 107.7 ml/min; Potassium 3.6 mmol/L (3.5-5.1)
[2021-08-07] MEDS: PREGABALIN 150 MG CAP PO SCH (08:50)
[2021-08-07] MEDS: ASPIRIN 81 MG ECTAB PO SCH (08:50)
[2021-08-07] MEDS: LEVOTHYROXINE SODIUM 50 MCG TABLET PO SCH (08:51)
[2021-08-07] MEDS: INSULIN ASPART 100 UNITS/ML 3 ML PEN SC SCH (08:51)
[2021-08-07] MEDS: cephALEXin 500 MG CAP PO SCH (08:51)
[2021-08-07] MEDS: DOCUSATE SODIUM 100 MG CAP PO SCH (08:51)
[2021-08-07] MEDS: INSULIN GLARGINE SOLOSTAR 100 UNITS/ML 3 ML PEN SC SCH (08:51)
[2021-08-07] MEDS: PANTOprazole 40 MG TAB PO SCH (08:51)
[2021-08-07] MEDS: PARoxetine HCL 10 MG TAB PO SCH (08:51)
[2021-08-07] MEDS: LORATADINE 10 MG TAB PO SCH (08:51)
[2021-08-07 10:18] LABS: T3 Free 1.93 pg/ml (2.3-4.2); T4 Thyroxine 5.9 mcg/dl (4.5-10.9)
--- NOTE | 2021-08-07 11:52 | Discharge Summary ---
Date of Service August 07, 2021 Admission HPI Per Admitting Provider I have examined the patient, reviewed the History & Physical and in the interval since the performance of the History & Physical I have noted the following changes of clinical significance: no changes noted Per substation operator chief of PDF HPI: (This is a 51-year-old female who presents for follow-up after left breast biopsy with wire localization. Pathology recert DCIS with superior lateral margin positive. She is healing well from surgery. No breast tenderness. No drainage. Has some ecchymosis that is improving. Admission Exam Per Admitting Provider Admission exam dictated from summaries PDF, pertinent positives ecchymosis of the left breast Principal Diagnosis DCIS status post mastectomy complicated by postop hematoma Discharge Exam General: A&Ox3. NAD. Cooperative. HEENT: Atraumatic, normocephalic. Pulm: CTAB A&P. -wheezes, -rales, -rhonchi. Symmetrical chest rise. No increase work of breathing. No respiratory distress. Cardiac: RRR, -mrg. Radial pulses intact and symmetrical. Thorax: Post surgical site well dressed in surgical dressing C/D/I. Left APRIL drain with serosanguineous output, freshly emptied. Right APRIL drain with serosanguineous output freshly emptied. Patient with minimal postop pain overlying surgical site, no discharge appreciated. Abdominal: Nontender, nondistended, soft. BS present. Extremities: Warm, dry. Moving all extremities equally, image scientist strength and ankle plantarflexion/dorsiflexion 5/5 bilaterally. Hip flexion 5/5 bilaterally. Discharge Data Allergies Allergy/AdvReac Type Severity Reaction Status Date / Time ibuprofen Allergy Severe Anaphylaxis Verified 08/03/21 10:23 clavulanic acid Allergy Intermediate Hives Verified 08/03/21 10:23 Sulfa (Sulfonamide Allergy Intermediate HIVES Verified 08/03/21 10:23 Antibiotics) sulfamethoxazole Allergy Intermediate HIVES Verified 08/03/21 10:23 trimethoprim Allergy Intermediate HIVES Verified 08/03/21 10:23 metformin Allergy Mild Diarrhea Verified 08/03/21 10:23 Penicillins Allergy Mild Rash Verified 08/03/21 10:23 Consultations 08/03/21 17:24 Consult Hospitalist Routine Procedures Performed Operation Date: 08/03/21 11:10 Actual Procedures p Bilateral Breast Mastectomy with Left [place] Lymph Node Biopsy(Bilateral) - Edvin Degroot DO Operation Date: 08/04/21 09:55 Actual Procedures p Evactuation of Left Breast Mastectomy Hematoma(Left) - Edvin Degroot DO Ordered Studies 08/03/21 05:00 US - OR guided needle placemen Routine Diabetes Follow up Diabetes Follow-up Needed for HgbA1c >9% Hospital Course (1) Hematoma: Carmel is a 51-year-old female with a past medical history of hypertension, asthma, diabetes, IBS, and seizure who presented for bilateral mastectomy with Dr. Degroot for ductal carcinoma in situ of the left breast. Her hospital course was complicated by postop hematoma. She clinically improved, and was stable and feeling well at time of discharge. To do as outpatient 1. Continue to follow CBC, recommend repeat CBC within 1 week 2. Follow-up with PCP within 1 week, follow-up with surgical team for APRIL drain evaluation plus minus removal 3. Reassessment outpatient BSG's, improved and Intensification of anti-glycemic regimen for A1c of greater than 12 during admission Hematoma Patient developed a left breast hematoma on postop day 1, was brought back to the surgical suite and was found to have a small arterial bleeder inferior to the pectoralis muscle was successfully controlled. Patient initially developed postop hypotension and downtrending hemoglobin from preop 16.3 to postop 12.2 and then 11.9, following bleeding control as noted above hemoglobin remained stable and began to improve. Patient discharged with 1 right and 1 left APRIL drain in place draining small amounts of serosanguineous material at discharge. Anticipate follow-up to surgery for removal. Per surgery recommend continuing several weeks of Keflex treatment given prior infection. Patient discharged to continue Keflex 3 times daily 500 mg will advised otherwise by her surgical team. - Repeat CBC as outpt (2) Acute blood loss anemia: 2/2 postsurgical hematoma Hemoglobin down trended as noted, stable/improving at time of discharge Patient was noted to have low iron, received IV Venofer during admission Recommend continuing to follow counts, consider outpatient iron supplementation (3) Tachycardia: Improved with IV fluids and control of bleeding as noted above (4) Hypotension: Improved with IV fluids and control of bleeding as noted above (5) Ductal carcinoma in situ (DCIS) of left breast: Patient underwent bilateral mastectomy for ductal carcinoma in situ of the left breast and prophylactic mastectomy of the right breast following risk- benefit discussion with Dr. Degroot. Surgery complicated by postop hematoma formation as otherwise noted Patient with routine follow-up as outpatient to surgery, no additional complications other than noted (6) Diabetes: Tradjenta held on admission, patient placed on basal bolus insulin Patient found to have an A1c of 12.9, uncontrolled diabetes Patient was transiently on insulin GTT for persistently elevated BSG's of up to 447, no beta hydroxybutyrate was elevated Diabetes Tinnie was consulted during admission Improve glycemic control with tightening of parameters Patient will require increased glucose monitoring and control as outpatient. Discussed, recommend following up with PCP for outpatient management of u ncontrolled diabetes (7) Hypertension: losartan was initially held for hypotension, resumed on discharge (8) Chronic depression: paroxetine continued (9) Asthma: stable with albuterol and singulair stable on room air (but placed on O2 for comfort) (10) Hypothyroidism: continued levothyroxine (11) DVT prophylaxis: SCDs were used, chemoprophylaxis was avoided in the setting of hematoma formation. No signs of DVT during admission Total Time Total Time Spent Total Time Spent (In Minutes): Total time spent preparing discharge including direct patient care, review of labs and images, and coordination of care approximately 35 minutes Discharge Plan Discharge Items Patient Disposition: Home - Self-Care Reason For Visit: Left Breast DCIS, Diabetes Discharge Diagnosis: bilateral mastectomy evacuation of left hematoma Activity: As commented below Lifting: No more than 10 pounds Bathing Comment: keep drains dry as possible when bathing Driving/Machine Use: when pain free Non-emergency contact: Surgeon Call non-emergency contact if: you have any medication questions, your pain is not controlled, you have a fever, your wound has increased redness and your wound has increased drainage Follow-up/Referrals: Edvin Degroot DO [Physician] - (as scheduled 08/14 [facility]) Alicia Gil CRNP [Primary Care Provider] - Diet: Carb Consistent or DM2 Addtl Attending Provider Instructions: You were seen in the hospital for breast surgery, your hospital course was complicated by bleeding from your surgical site. This bleeding had improved at time of discharge, and your blood counts remained stable. You have drains remaining at the surgical site as discussed with you by surgery, these will be readdressed/removed by surgery as an outpatient. Empty drains 2-3 times daily, record total daily amount for each side, drains can be removed when less than 25 cc drainage over 24 hours You have been prescribed an antibiotic, cephalexin per the recommendations of your surgical team. Please take cephalexin 500 mg p.o. 3 times daily until advised to stop by surgery or your outpatient provider. Follow-up appointments are being scheduled for you with your primary care provider and surgery as noted above. You should hear confirmation of these appointments within 48 hours. If you do not receive confirmation of an appointment, please contact the providers office at the phone numbers listed above. You should be seen by your primary care provider within 1 week. If you develop any new or worsening symptoms including fever, chills, sweats, chest pain, chest pressure, difficulty breathing, uncontrolled nausea/vomiting, rash, wheezing, passing out or nearly passing out, bleeding, black/bloody bowel movements, or other new or concerning symptoms please call your primary care physician, or call 911 for re-evaluation in the emergency department if you are very concerned. Pending Studies at Discharge: Yes Studies:: pathology Stand-Alone Forms: My [facility], Smoking Cessation Medications and DC Order Prescriptions: New oxycodone 5 mg tablet 5 - 10 mg PO Q4H Qty: 20 RF: 0 cephalexin 500 mg capsule 500 mg PO TID 7 Days Qty: 21 RF: 0 Continued albuterol sulfate 2.5 mg /3 mL (0.083 %) solution for nebulization 2.5 mg inhalation Q4H PRN (Reason: short of breath) RF: 0 aspirin 81 mg tablet,delayed release (DR/EC) 81 mg PO QAM RF: 0 loratadine 10 mg capsule 10 mg PO QAM RF: 0 paroxetine HCl 10 mg tablet 10 mg PO QAM RF: 0 paroxetine HCl 40 mg tablet 40 mg PO QAM RF: 0 lovastatin 40 mg tablet 40 mg PO HS RF: 0 levothyroxine 50 mcg tablet 50 mcg PO QAM RF: 0 pantoprazole 40 mg tablet,delayed release (DR/EC) 40 mg PO QAM RF: 0 ropinirole 0.5 mg tablet 0.5 mg PO HS RF: 0 montelukast 10 mg tablet 10 mg PO HS RF: 0 losartan 100 mg tablet 100 mg PO QAM RF: 0 insulin lispro [Humalog KwikPen Insulin] 100 unit/mL insulin pen 5 unit SUBCUT TIDWMEAL RF: 0 ezetimibe 10 mg tablet 10 mg PO QAM RF: 0 pregabalin 150 mg capsule 150 mg PO TID RF: 0 Tradjenta 5 mg tablet 5 mg PO QAM RF: 0 albuterol sulfate 90 mcg/actuation Hfa Aerosol Inhaler 2 puff INHALATION QID PRN (Reason: SHORT OF BREATH) RF: 0 oxycodone 5 mg tablet 5 - 10 mg PO Q4H Qty: 15 RF: 0 Levemir U-100 Insulin 100 unit/mL Solution 25 unit SUBCUT QAM RF: 0 Discharge Orders: Discharge Order (Routine); Ordered 08/07/21 Ordered By: Jose Carlos Cardoso Admission Data Admit Date/Time: 08/04/21 18:15 Attending Provider: Santos Frazier Admit Provider: Edvin Degroot Primary Care Provider: Alicia Gil Other Providers: Alexander Ziegler Other Interventions: Discharge Summary Assessment (RN) Last Done: 08/07/21 10:01 Coding Level of Care Code D/C DAY MANAGEMENT >30 MINS Diagnoses Hematoma T14.8XXA Acute blood loss anemia D62 Tachycardia R00.0 Hypotension I95.9 Ductal carcinoma in situ (DCIS) of left breast D05.12 Diabetes E11.9 Hypertension I10 Chronic depression F32.9 Asthma J45.909 Hypothyroidism E03.9 DVT prophylaxis Z29.9
== END 2021-08-07 12:21 | disposition home or self-care (01) | DRG 580 ==
LOC: ASU 07:15 → 3N 07:15 → 2W 08-04 14:12 → SUATTDRO 08-04 18:15

== ENCOUNTER 2021-08-19 15:11 | Inpatient (IN) ==
[2021-08-19] MEDS ORDERED: SODIUM CHLORIDE 0.9% 1000ML 1,000 ML IV SCH (16:00)
--- NOTE | 2021-08-19 16:07 | Emergency Department Note ---
Impression & Plan Postoperative hemorrhage, Severe anemia, Acute hypotension, High serum lactate, Leukocytosis ED Provider Note INFORMANT: Patient and ED PROVIDER(S): Stas Herrera MD CHIEF COMPLAINT: Bleeding PLAN: Disposition: Admitted Condition: Guarded Outpatient prescription management: none Referral: None MEDICAL DECISION MAKING: Patient presented to the emergency department because of bleeding. She was pale and mildly hypotensive. There was a moderate hematoma present in the left breast. There is no purulence. Patient was afebrile. Blood work was initiated. She was hydrated with IV fluids. She was given Dilaudid and Zofran for pain control. Consultation was made promptly with Dr. Sepulveda of general surgery. Unfortunately the patient had a bad interaction with Dr. Sepulveda over the phone and when he presented the room it did not go well either. She refused him to see her. He notified me that he would not see the patient for that reason. The patient has a significant leukocytosis, mild lactate elevation and a significant anemia. She was given IV daptomycin and cefepime. I did a significant effort to get in touch with her surgeon, Dr. Degroot. Unfortunately Dr. Degroot was out of the state. We did discuss the patient's presentation and findings. I did ask for him to see if one of his partners that was in town and not on-call would be available to consult with if the hospitalist will admit the patient. He did not want to burden his partners that were not on-call. He asked for the patient to have a Jerzy wrap binder placed. This was done. He agreed with the transfusion, fluids and antibiotics. He made several attempts to contact mother about the knee surgeons. I did discuss the difficulties with the patient and . They were very understanding under the circumstances. The patient was consented for packed red blood cell transfusion and this was done. She did have some transient low blood pressures. Patient responded to additional fluid bolus. Given the significant output of her APRIL drains there is concern for postoperative hemorrhage. Dr. Degroot essentially noted that patient would need to work with Dr. Sepulveda or would need to be transferred. I did discuss the possibility of transfer with the patient and they would prefer [place]. I did contact Dr. Sepulveda again to see if he would be willing to reevaluate the situation and he would not. He recommended prompt transfer the patient as he does not feel comfortable managing her breast problem. There is significant effort the ED staff was able to get in touch with Dr. Junaid Oviedo and I discussed the case with him. He was in town and offered to evaluate the patient's situation under the circumstances. I did notify the patient and that we were successful and that he was willing to see the patient. They were very thank you for this as a were hoping to avoid the significant burden of transfer. He presented to the emergency department and evaluated the patient. On his assessment the patient's condition warranted urgent operative intervention and he would like to the hospitalist admit the patient and he is going to take her to the operating suite. The patient was frequently reassessed and was doing well. Her vital signs did stabilize. Consultation was made with the hospitalist service, Dr. Ramirez. The case was discussed. She did evaluate the patient in the ER prior to her leaving for the operative suite. The patient and her were extremely pleased with the ER treatment Triage Nursing notes reviewed and agree them. Vital Signs: reviewed and remarkable for mild hypotension. Differential diagnosis: Postoperative hemorrhage, infection, anemia, vascular compromise, sepsis, as wel l as other pathologies. Diagnostics interpreted by me: EC Lead ECG performed and revealed Normal sinus rhythym at 91, normal [place], QRS normal. No elevation or depression. No PACs or PVCs Cardiac Monitoring: Cardiac monitoring ordered by me: The patient was placed on continuous cardiac monitoring and observed. It revealed a normal sinus rhythm at 99 beats per minute without ectopy or evidence of dysrhythmia. Imaging studies: Chest x-ray. Findings: A chest x-ray was performed and revealed no pneumothorax, effusion, infiltrate, pulmonary edema, free air under the diaphragm, or wide mediastinum. Impression: No acute disease. HPI: The patient is a 51 year old female who presents to the Emergency Room with complaints of postoperative bleeding. This started worsening over the last 24 hours and is described as significant. She has had to empty her APRIL drain at least 10 times today. She has noted significant clots in the APRIL drain. The dressings are starting to soak through. She had a bleeding after her initial mastectomy and did require a blood transfusion. The patient also notes the following associated symptoms, feeling weak, tired and pale. The patient has taken no medication today for relieving factors. Current pain is rated as 6/10. Pt denies LOC, headache, fevers, chills, diaphoresis, visual changes, neck pain, chest pain, breathing difficulties, nausea, vomiting, abdominal pain, back pain, melena, hematochezia, urinary symptoms, numbness, weakness, lymphadenopathy, rash, or other complaints. ROS: See above HPI for pertinent positives & negatives. A total of 10 systems reviewed and were otherwise negative. PAST MEDICAL HISTORY:See Below , breast cancer PAST SURGICAL HISTORY:See Below, mastectomy FAMILY HISTORY:See Below SOCIAL HISTORY:See Below, HOME MEDICATIONS:See Below ALLERGIES:See Below VITALS:See Below PHYSICAL EXAMINATION: GENERAL: Awake, alert, uncomfortable-appearing, in no distress HENT: Normocephalic, atraumatic. Oropharynx unremarkable. EYES: Pale conjunctiva. Sclera non-icteric. NECK: Inspection normal. Non-tender. Supple. No nuchal rigidity. FROM. No masses. RESPIRATORY: Clear to auscultation. No wheezes. No rales. Normal respiratory effort. CARDIAC: Normal rate. Normal rhythm. No murmurs. No rubs. Extremities warm and well perfused. Pulses equal. No JVD. GI: Soft, non-distended. No tenderness to palpation. No rebound or guarding. No masses. BREAST: The chest was examined and there is a large hematoma under the incision of the left breast. There is minimal oozing of dark blood noted from the middle of the incision. No surrounding erythema. Mildly tender diffusely. No warmth. No purulence. MUSCULOSKELETAL: Atraumatic. Chest examination reveals no tenderness. The back is symmetrical on inspection without obvious abnormality. There is no CVA tenderness to palpation. No joint edema. LOWER EXTREMITIES: Calves are equal size bilaterally and non-tender. No edema. No discoloration. NEURO: Normal sensorium. No sensory or motor deficits noted. SKIN: No rash or jaundice noted. CRITICAL CARE: I have personally spent greater than 125 minutes of critical care time in the direct management of this patient. This includes bedside care, interpretation of diagnostic studies, and testing, discussion with consultants, patient, and family members, and other required patient management activities. These minutes are in excess of all separately billable procedures. Stas Herrera MD Past Med/Surg History Medical History (Updated 08/20/21 @ 02:20 by Stas Herrera MD) Allergic rhinitis Asthma LAST USED INHLAER>6 MONTHS AGO Atypical ductal hyperplasia of left breast plan to do bilateral mastectomy Depression Diabetes mellitus, type 2 Fatty liver Fibromyalgia GERD (gastroesophageal reflux disease) Hx of seizure disorder LAST EPISODE 2005 (NO NEUROLOGIST) Hyperlipidemia Hypertension Hypothyroidism IBS (irritable bowel syndrome) Restless leg syndrome Temporomandibular joint disorder NO LOCKING Surgical History (Updated 08/09/21 @ 11:37 by Esther Serrano, RN) Amputated toe LEFT FOOT SMALL TOE R/T INFECTION H/O bilateral mastectomy (08/03/21) Bilateral Breast Mastectomy with Left [place] Lymph Node Biopsy Dr. Degroot 08/03/2021 H/O breast surgery left 11/11/2013 benign/clip placement H/O sinus surgery MULTIPLE TIMES History of arthroscopy RT KNEE History of cardiac cath 25 YEARS AGO (NO STENTS) History of carpal tunnel surgery LEFT/RT History of colonoscopy History of esophagogastroduodenoscopy (EGD) History of evacuation of hematoma (08/04/21) Evactuation of Left Breast Mastectomy Hematoma Dr. Degroot 08-04-2021 History of hysterectomy History of partial mastectomy of left breast (07/18/21) Left Breast Partial Mastectomy Dr. Degroot 07-18-2021 History of tooth extraction Hx of elbow surgery RT/LEFT ULNAR NERVE RELEASE S/P breast biopsy, left (07/04/21) Left Breast Biopsy with Wire Localization(Left) - Edvin Degroot, DO Family History Mother Breast cancer Grandmother (Maternal) Breast cancer Father Diabetes Heart disease Hypertension Other No family history of adverse response to anesthesia Social History Smoking Status: Never smoker Second Hand Exposure: No; Hx Alcohol Use: No Hx Substance Use: No Preferred Language: Swedish Communication Ability: Effective Sound Effects Technician Required: No Beliefs That Will Affect Care: None marital status: Current Living Situation: Spouse current occupational status: disabled Feels Safe at Home: Yes Assistive Devices: None Allergies Allergies Allergy/AdvReac Type Severity Reaction Status Date / Time ibuprofen Allergy Severe Anaphylaxis Verified 08/19/21 19:23 clavulanic acid Allergy Intermediate Hives Verified 08/19/21 19:23 Sulfa (Sulfonamide Allergy Intermediate HIVES Verified 08/19/21 19:23 Antibiotics) sulfamethoxazole Allergy Intermediate HIVES Verified 08/19/21 19:23 trimethoprim Allergy Intermediate HIVES Verified 08/19/21 19:23 metformin Allergy Mild Diarrhea Verified 08/19/21 19:23 Penicillins Allergy Mild Rash Verified 08/19/21 19:23 Home Meds Home Medications Medication Instructions Recorded Confirmed ezetimibe 10 mg tablet 10 mg PO QAM 05/22/21 08/19/21 insulin lispro 100 unit/mL 15 unit SUBCUT TIDWMEAL 05/22/21 08/19/21 subcutaneous pen (Humalog KwikPen (U-100) Insulin) levothyroxine 50 mcg tablet 50 mcg PO QAM 05/22/21 08/19/21 linagliptin 5 mg tablet (Tradjenta) 5 mg PO QAM 05/22/21 08/19/21 losartan 100 mg tablet 100 mg PO QAM 05/22/21 08/19/21 lovastatin 40 mg tablet 40 mg PO HS 05/22/21 08/19/21 montelukast 10 mg tablet 10 mg PO 05/22/21 08/19/21 pantoprazole 40 mg tablet,delayed 40 mg PO QAM 05/22/21 08/19/21 release paroxetine HCl 10 mg tablet 10 mg PO QAM 05/22/21 08/19/21 paroxetine HCl 40 mg tablet 40 mg PO QAM 05/22/21 08/19/21 pregabalin 150 mg capsule 150 mg PO TID 05/22/21 08/19/21 ropinirole 0.5 mg tablet 0.5 mg PO HS 05/22/21 08/19/21 albuterol sulfate 2.5 mg INHALATION Q4H PRN 05/24/21 08/19/21 aspirin 81 mg tablet,delayed 81 mg PO QAM 05/24/21 08/19/21 release loratadine 10 mg capsule 10 mg PO QAM 05/24/21 08/19/21 albuterol sulfate 90 mcg/actuation 2 puff INHALATION QID PRN 06/23/21 08/19/21 aerosol inhaler insulin detemir U-100 100 unit/mL 25 unit SUBCUT QAM 07/28/21 08/19/21 subcutaneous solution (Levemir U-100 Insulin) oxycodone 5 mg tablet 5 - 10 mg PO Q4H PRN 08/19/21 08/19/21 Results & Data (ED) Vital Signs Vital Signs - 24 hr 08/19/21 15:22 08/19/21 15:55 08/19/21 15:56 Temperature 36.9 C Temperature Source Temporal Artery Scan Pulse Rate 100 H 92 H Pulse Rate [Right Finger] 99 H Pulse Rate from SpO2 Sensor 95 H Pulse Rhythm [Right Finger] Respiratory Rate 20 20 14 Respiratory Effort / Characteristics Non-Labored Non-Labored Respiratory Depth Normal Respiratory Pattern Blood Pressure 99/61 L Blood Pressure [Right Arm] Blood Pressure Mean 73 Blood Pressure Mean [Right Arm] Blood Pressure Position Pulse Oximetry 100 100 100 Oxygen Delivery Method Room Air Room Air Sepsis Recent Fever Within 48 Hours No Sepsis New/Unexplained Change in Mental Status No Sepsis Action Taken by Nursing No Action Required 08/19/21 16:00 08/19/21 16:15 08/19/21 16:30 Temperature Temperature Source Pulse Rate 94 H 95 H 92 H Pulse Rate [Right Finger] Pulse Rate from SpO2 Sensor 93 H 95 H 92 H Pulse Rhythm [Right Finger] Respiratory Rate 24 19 15 Respiratory Effort / Characteristics Respiratory Depth Respiratory Pattern Blood Pressure Blood Pressure [Right Arm] Blood Pressure Mean Blood Pressure Mean [Right Arm] Blood Pressure Position Pulse Oximetry 100 100 100 Oxygen Delivery Method Sepsis Recent Fever Within 48 Hours Sepsis New/Unexplained Change in Mental Status Sepsis Action Taken by Nursing 08/19/21 16:45 08/19/21 16:59 08/19/21 17:00 Temperature Temperature Source Pulse Rate 93 H 96 H Pulse Rate [Right Finger] 95 H Pulse Rate from SpO2 Sensor 94 H 94 H Pulse Rhythm [Right Finger] Respiratory Rate 17 18 21 Respiratory Effort / Characteristics Non-Labored Non-Labored Respiratory Depth Respiratory Pattern Blood Pressure Blood Pressure [Right Arm] 129/61 Blood Pressure Mean Blood Pressure Mean [Right Arm] 83 Blood Pressure Position Pulse Oximetry 100 100 100 Oxygen Delivery Method Room Air Sepsis Recent Fever Within 48 Hours Sepsis New/Unexplained Change in Mental Status Sepsis Action Taken by Nursing 08/19/21 17:15 08/19/21 17:30 08/19/21 17:45 Temperature Temperature Source Pulse Rate 88 91 H 94 H Pulse Rate [Right Finger] Pulse Rate from SpO2 Sensor 88 91 H 94 H Pulse Rhythm [Right Finger] Respiratory Rate 14 22 24 Respiratory Effort / Characteristics Non-Labored Respiratory Depth Respiratory Pattern Blood Pressure Blood Pressure [Right Arm] Blood Pressure Mean Blood Pressure Mean [Right Arm] Blood Pressure Position Pulse Oximetry 100 99 95 Oxygen Delivery Method Room Air Sepsis Recent Fever Within 48 Hours Sepsis New/Unexplained Change in Mental Status Sepsis Action Taken by Nursing 08/19/21 18:00 08/19/21 18:08 08/19/21 18:09 Temperature 36.7 C 36.7 C Temperature Source Oral Oral Pulse Rate 97 H 93 H 99 H Pulse Rate [Right Finger] Pulse Rate from SpO2 Sensor 97 H Pulse Rhythm [Right Finger] Respiratory Rate 15 15 19 Respiratory Effort / Characteristics Respiratory Depth Respiratory Pattern Blood Pressure 101/56 L 129/61 Blood Pressure [Right Arm] Blood Pressure Mean 71 83 Blood Pressure Mean [Right Arm] Blood Pressure Position Sitting Pulse Oximetry 99 99 96 Oxygen Delivery Method Sepsis Recent Fever Within 48 Hours Sepsis New/Unexplained Change in Mental Status Sepsis Action Taken by Nursing 08/19/21 18:13 08/19/21 18:15 08/19/21 18:23 Temperature 36.6 C Temperature Source Oral Pulse Rate 97 H Pulse Rate [Right Finger] 98 H Pulse Rate from SpO2 Sensor 97 H Pulse Rhythm [Right Finger] Regular Respiratory Rate 15 13 Respiratory Effort / Characteristics Non-Labored Non-Labored Respiratory Depth Normal Respiratory Pattern Regular Blood Pressure Blood Pressure [Right Arm] 73/39 L Blood Pressure Mean Blood Pressure Mean [Right Arm] 50 Blood Pressure Position Pulse Oximetry 97 98 Oxygen Delivery Method Room Air Sepsis Recent Fever Within 48 Hours Sepsis New/Unexplained Change in Mental Status Sepsis Action Taken by Nursing 08/19/21 18:30 08/19/21 18:39 08/19/21 18:45 Temperature 36.7 C Temperature Source Oral Pulse Rate 96 H 94 H 95 H Pulse Rate [Right Finger] 94 H Pulse Rate from SpO2 Sensor 96 H 95 H Pulse Rhythm [Right Finger] Respiratory Rate 18 18 17 Respiratory Effort / Characteristics Non-Labored Respiratory Depth Respiratory Pattern Blood Pressure 101/56 L 129/61 100/58 L Blood Pressure [Right Arm] 101/56 L Blood Pressure Mean 71 83 72 Blood Pressure Mean [Right Arm] 71 Blood Pressure Position Pulse Oximetry 97 98 95 Oxygen Delivery Method Sepsis Recent Fever Within 48 Hours Sepsis New/Unexplained Change in Mental Status Sepsis Action Taken by Nursing 08/19/21 19:00 08/19/21 19:15 08/19/21 19:30 Temperature Temperature Source Pulse Rate 89 88 94 H Pulse Rate [Right Finger] Pulse Rate from SpO2 Sensor 89 89 94 H Pulse Rhythm [Right Finger] Respiratory Rate 15 20 20 Respiratory Effort / Characteristics Respiratory Depth Respiratory Pattern Blood Pressure 105/58 L 103/57 L 85/56 L Blood Pressure [Right Arm] Blood Pressure Mean 73 72 65 Blood Pressure Mean [Right Arm] Blood Pressure Position Pulse Oximetry 98 98 98 Oxygen Delivery Method Sepsis Recent Fever Within 48 Hours Sepsis New/Unexplained Change in Mental Status Sepsis Action Taken by Nursing 08/19/21 19:45 Temperature Temperature Source Pulse Rate 92 H Pulse Rate [Right Finger] Pulse Rate from SpO2 Sensor 93 H Pulse Rhythm [Right Finger] Respiratory Rate 19 Respiratory Effort / Characteristics Respiratory Depth Respiratory Pattern Blood Pressure 90/44 L Blood Pressure [Right Arm] Blood Pressure Mean 59 Blood Pressure Mean [Right Arm] Blood Pressure Position Pulse Oximetry 98 Oxygen Delivery Method Sepsis Recent Fever Within 48 Hours Sepsis New/Unexplained Change in Mental Status Sepsis Action Taken by Nursing Laboratory Data Result diagrams: 08/20/21 00:19 08/19/21 16:24 Lab Results 08/19/21 08/19/21 08/19/21 Range/Units 16:24 16:24 16:24 WBC 16.53 H (4.8-10.8) K/uL RBC 2.61 L (4.2-5.4) M/uL Hgb 7.7 L (12.0-16.0) g/dL Hct 25.0 L (37-47) % MCV 95.8 (80-100) fL MCH 29.5 (25-34) pg MCHC 30.8 L (32-36) g/dL RDW Std Deviation 56.5 H (36.4-46.3) fL RDW Coeff of Shannon 17.2 H (11.5-14.5) % Plt Count 544 H (130-400) K/uL MPV 9.4 (7.4-10.4) fL Immature Gran % (Auto) 0.4 % Neut % (Auto) 77.4 % Lymph % (Auto) 16.6 % [place] % (Auto) 5.1 % Eos % (Auto) 0.4 % Baso % (Auto) 0.1 % Neut # (Auto) 12.79 H (1.4-6.5) K/uL Lymph # (Auto) 2.74 (1.2-3.4) K/uL [place] # (Auto) 0.85 H (0.11-0.59) K/uL Eos # (Auto) 0.06 (0-0.5) K/uL Baso # (Auto) 0.02 (0-0.2) K/uL Immature Gran # (Auto) 0.07 H (0.00-0.02) K/uL Polychromasia 2+ Poikilocytosis Present PT 10.0 (9.0-12.0) Seconds INR 1.0 (0.9-1.1) APTT 23.2 (21.0-31.0) Seconds PTT Ratio 0.9 Sodium 138 (136-145) mmol/L Potassium 4.6 (3.5-5.1) mmol/L Chloride 106 (98-107) mmol/L Carbon Dioxide 26 (21-32) mmol/L Anion Gap 6.0 (3-11) BUN 18 (7-18) mg/dl Creatinine 0.81 (0.6-1.2) mg/dl Est Cr Clr Drug Dosing 86.7 ml/min Est GFR ( Amer) 96.1 ml/min Est GFR (Non-Af Amer) 82.9 ml/min BUN/Creatinine Ratio 22.1 H (10-20) Glucose 271 H (70-99) mg/dl Lactate (0.4-2.0) mmol/L Calcium 8.9 (8.5-10.1) mg/dl Magnesium 2.1 (1.8-2.4) mg/dl Total Bilirubin 0.2 (0.2-1) mg/dl AST 8 L (15-37) U/L ALT 13 (12-78) U/L Alkaline Phosphatase 79 (45-117) U/L Total Protein 6.3 L (6.4-8.2) gm/dl Albumin 2.5 L (3.4-5.0) gm/dl Globulin 3.8 (2.5-4.0) gm/dl Albumin/Globulin Ratio 0.7 L (0.9-2) COVID-19 Eval Order SARS-CoV-2 (PCR) (Negative) Blood Type Antibody Screen Crossmatch 08/19/21 08/19/21 08/19/21 Range/Units 16:24 16:43 18:36 WBC (4.8-10.8) K/uL RBC (4.2-5.4) M/uL Hgb (12.0-16.0) g/dL Hct (37-47) % MCV (80-100) fL MCH (25-34) pg MCHC (32-36) g/dL RDW Std Deviation (36.4-46.3) fL RDW Coeff of Shannon (11.5-14.5) % Plt Count (130-400) K/uL MPV (7.4-10.4) fL Immature Gran % (Auto) % Neut % (Auto) % Lymph % (Auto) % [place] % (Auto) % Eos % (Auto) % Baso % (Auto) % Neut # (Auto) (1.4-6.5) K/uL Lymph # (Auto) (1.2-3.4) K/uL [place] # (Auto) (0.11-0.59) K/uL Eos # (Auto) (0-0.5) K/uL Baso # (Auto) (0-0.2) K/uL Immature Gran # (Auto) (0.00-0.02) K/uL Polychromasia Poikilocytosis PT (9.0-12.0) Seconds INR (0.9-1.1) APTT (21.0-31.0) Seconds PTT Ratio Sodium (136-145) mmol/L Potassium (3.5-5.1) mmol/L Chloride (98-107) mmol/L Carbon Dioxide (21-32) mmol/L Anion Gap (3-11) BUN (7-18) mg/dl Creatinine (0.6-1.2) mg/dl Est Cr Clr Drug Dosing ml/min Est GFR ( Amer) ml/min Est GFR (Non-Af Amer) ml/min BUN/Creatinine Ratio (10-20) Glucose (70-99) mg/dl Lactate 2.6 H* 1.9 (0.4-2.0) mmol/L Calcium (8.5-10.1) mg/dl Magnesium (1.8-2.4) mg/dl Total Bilirubin (0.2-1) mg/dl AST (15-37) U/L ALT (12-78) U/L Alkaline Phosphatase (45-117) U/L Total Protein (6.4-8.2) gm/dl Albumin (3.4-5.0) gm/dl Globulin (2.5-4.0) gm/dl Albumin/Globulin Ratio (0.9-2) COVID-19 Eval Order SARS-CoV-2 (PCR) (Negative) Blood Type O Positive Antibody Screen NEGATIVE Crossmatch See Detail 08/19/21 08/19/21 Range/Units 19:25 19:25 WBC (4.8-10.8) K/uL RBC (4.2-5.4) M/uL Hgb (12.0-16.0) g/dL Hct (37-47) % MCV (80-100) fL MCH (25-34) pg MCHC (32-36) g/dL RDW Std Deviation (36.4-46.3) fL RDW Coeff of Shannon (11.5-14.5) % Plt Count (130-400) K/uL MPV (7.4-10.4) fL Immature Gran % (Auto) % Neut % (Auto) % Lymph % (Auto) % [place] % (Auto) % Eos % (Auto) % Baso % (Auto) % Neut # (Auto) (1.4-6.5) K/uL Lymph # (Auto) (1.2-3.4) K/uL [place] # (Auto) (0.11-0.59) K/uL Eos # (Auto) (0-0.5) K/uL Baso # (Auto) (0-0.2) K/uL Immature Gran # (Auto) (0.00-0.02) K/uL Polychromasia Poikilocytosis PT (9.0-12.0) Seconds INR (0.9-1.1) APTT (21.0-31.0) Seconds PTT Ratio Sodium (136-145) mmol/L Potassium (3.5-5.1) mmol/L Chloride (98-107) mmol/L Carbon Dioxide (21-32) mmol/L Anion Gap (3-11) BUN (7-18) mg/dl Creatinine (0.6-1.2) mg/dl Est Cr Clr Drug Dosing ml/min Est GFR ( Amer) ml/min Est GFR (Non-Af Amer) ml/min BUN/Creatinine Ratio (10-20) Glucose (70-99) mg/dl Lactate (0.4-2.0) mmol/L Calcium (8.5-10.1) mg/dl Magnesium (1.8-2.4) mg/dl Total Bilirubin (0.2-1) mg/dl AST (15-37) U/L ALT (12-78) U/L Alkaline Phosphatase (45-117) U/L Total Protein (6.4-8.2) gm/dl Albumin (3.4-5.0) gm/dl Globulin (2.5-4.0) gm/dl Albumin/Globulin Ratio (0.9-2) COVID-19 Eval Order Covid19 at [facility] SARS-CoV-2 (PCR) NEGATIVE (Negative) Blood Type Antibody Screen Crossmatch Administered Medications Acetaminophen (Acetaminophen 325 Mg Tab) 650 mg PO Q4H PRN PRN Reason: pain/fever Stop: 09/19/21 00:16 Last Admin: 08/20/21 00:49 Dose: 650 mg Documented by: [id number] Insulin Aspart (Insulin Aspart 100 Units/Ml 3 Ml Pen) 0 units SC ACHS FRANCISCO Stop: 09/19/21 00:59 Last Admin: 08/20/21 00:49 Dose: 4 units Documented by: [id number] Cosigned by: [id number] Discontinued Medications Fentanyl Citrate (Fentanyl Citrate 100 Mcg/2 Ml Vial) 50 mcg IV Q5M PRN PRN Reason: PACU Use Only-Pain Stop: 08/20/21 07:09 Last Admin: 08/19/21 23:10 Dose: 50 mcg Documented by: [id number] Hydromorphone HCl (Hydromorphone Inj 0.5 Mg/0.5 Ml Syr) 0.5 mg IV Q15M PRN PRN Reason: Pain Stop: 09/02/21 16:42 Last Admin: 08/19/21 16:48 Dose: 0.5 mg Documented by: [id number] Sodium Chloride (Nss 1000ml) 1,000 mls @ 999 mls/hr IV .Q1H1M [place] Stop: 08/19/21 17:00 Last Infusion: 08/19/21 17:24 Dose: 0 mls/hr Documented by: [id number] Admin: 08/19/21 16:22 Dose: 999 mls/hr Documented by: [id number] Sodium Chloride (Nss 1000ml) 1,000 mls @ 150 mls/hr IV .Q6H40M [place] Stop: 09/18/21 15:59 Last Admin: 08/20/21 01:00 Dose: Not Given Documented by: [id number] Infusion: 08/20/21 01:00 Dose: 0 mls/hr Documented by: [id number] Admin: 08/19/21 17:45 Dose: 150 mls/hr Documented by: [id number] Cefepime HCl (Maxipime) 2,000 mg in 20 mls @ 5 mls/min IV NOW STA; Protocol Stop: 08/19/21 17:18 Last Admin: 08/19/21 17:41 Dose: 5 mls/min Documented by: [id number] Daptomycin 325 mg/ Syringe 6.5 mls @ 3.25 mls/min IV NOW ONE; Protocol Stop: 08/19/21 17:16 Last Admin: 08/19/21 17:41 Dose: 3.25 mls/min Documented by: [id number] Ondansetron HCl (Ondansetron Inj 2 Mg/Ml 2 Ml Vial) 4 mg IV NOW STA Stop: 08/19/21 16:44 Last Admin: 08/19/21 16:47 Dose: 4 mg Documented by: [id number] Imaging Data Radiologist's Impression: Chest X-Ray 08/19/21 15:49 XR chest 1V portable HISTORY: 51 years-old Female SEPSIS acute sepsis with recent breast surgery COMPARISON: Chest radiograph 08/05/2021 TECHNIQUE: Portable upright AP view the chest FINDINGS: Cardiac mediastinal and hilar silhouettes are within normal limits. No pneumothorax, pleural effusion, overt pulmonary edema or airspace consolidation. Azygos lobe and fissure. Haziness of the left hemithorax is likely secondary to overlying soft tissue. Surgical drainage catheter left chest wall. Questioned avascular necrosis of the right humeral head. Degenerative changes of the shoulders and spine. IMPRESSION: 1. The lungs appear clear. 2. Surgical drainage catheter of the left chest wall. ACT 112: Negative or not required by law. The above report was generated using voice recognition software. It may contain grammatical, syntax or spelling errors. Electronically signed by: Genaro Ivan M.D. 08/19/2021 4:14 PM Discharge Plan Visit Data Chief Complaint: Infection, Wound Stated Complaint: WOUND HAD SURGERY 09/02 ON BREAST ED Provider: Stas Herrera Discharge Problem: Postoperative hemorrhage, Severe anemia, Acute hypotension, High serum lactate, Leukocytosis Patient Disposition: Still a Patient Discharge Instructions Interventions: ED Discharge Assessment Last Done: 08/19/21 21:16
[2021-08-19] MEDS ORDERED: SODIUM CHLORIDE 0.9% 250 ML IV PRN ×2 (16:08→17:16)
--- NOTE | 2021-08-19 16:15 | XRay Report ---
XR chest 1V portable HISTORY: 51 years-old Female SEPSIS acute sepsis with recent breast surgery COMPARISON: Chest radiograph 08/05/2021 TECHNIQUE: Portable upright AP view the chest FINDINGS: Cardiac mediastinal and hilar silhouettes are within normal limits. No pneumothorax, pleural effusion , overt pulmonary edema or airspace consolidation. Azygos lobe and fissure. Haziness of the left rebekah thorax is likely secondary to overlying soft tissue. Surgical drainage catheter left chest wall. 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 Degenerative changes of the shoulders and spine. IMPRESSION: 1. The lungs appear clear. 2. Surgical drainage catheter of the left chest wall. ACT 112: Negative or not required by law. The above report was generated using voice recognition software. It may contain grammatical, syntax o r spelling errors. Electronically signed by: Genaro Ivan M.D. 08/19/2021 4:14 PM
[2021-08-19 16:34] LABS: Basophils # (auto) 0.02 K/uL (0-0.2); Basophils % (auto) 0.1 %; Eosinophils # (auto) 0.06 K/uL (0-0.5); Eosinophils % (auto) 0.4 %; Hemoglobin 7.7 g/dL (12.0-16.0); Immature Granulocytes # (auto) 0.07 K/uL (0.00-0.02); Immature Granulocytes % (auto) 0.4 %; Lymphocytes # (auto) 2.74 K/uL (1.2-3.4); Lymphocytes % (auto) 16.6 %; Mean Corpuscular Hemoglobin 29.5 pg (25-34); Mean Corpuscular Hgb Conc 30.8 g/dL (32-36); Mean Corpuscular Volume 95.8 fL (80-100); Mean Platelet Volume 9.4 fL (7.4-10.4); Monocytes # (auto) 0.85 K/uL (0.11-0.59); Monocytes % (auto) 5.1 %; Neutrophils # (auto) 12.79 K/uL (1.4-6.5); Neutrophils % (auto) 77.4 %; Platelet Count 544 K/uL (130-400); RDW Coefficient of Variation 17.2 % (11.5-14.5); RDW Standard Deviation 56.5 fL (36.4-46.3); Red Blood Count 2.61 M/uL (4.2-5.4); White Blood Count 16.53 K/uL (4.8-10.8)
[2021-08-19] MEDS ORDERED: ONDANSETRON INJ 2 MG/ML 2 ML VIAL IV STA (16:43)
[2021-08-19] MEDS ORDERED: HYDROmorphone INJ 0.5 MG/0.5 ML SYR IV PRN (16:43)
[2021-08-19 16:44] LABS: Partial Thromboplastin Ratio 0.9; Partial Thromboplastin Time 23.2 Seconds (21.0-31.0)
[2021-08-19 16:52] LABS: Albumin Level 2.5 gm/dl (3.4-5.0); BUN Creatinine Ratio 22.1 (10-20); Calcium 8.9 mg/dl (8.5-10.1); Creatinine Clr Calc Pharmacy 86.7 ml/min; Est GFR (African American) 96.1 ml/min; Est GFR (Non-African American) 82.9 ml/min; Magnesium 2.1 mg/dl (1.8-2.4); Potassium 4.6 mmol/L (3.5-5.1)
[2021-08-19 16:55] LABS: Albumin Globulin Ratio 0.7 (0.9-2); Bilirubin,Total 0.2 mg/dl (0.2-1); Globulin 3.8 gm/dl (2.5-4.0); Total Protein 6.3 gm/dl (6.4-8.2)
[2021-08-19 16:58] LABS: Poikilocytosis Present; Polychromasia 2+
[2021-08-19] MEDS ORDERED: DAPTOmycin 325 MG in SYRINGE 0 ML IV ONE (17:15)
[2021-08-19] MEDS ORDERED: CEFEPIME 2,000 MG/20 ML VIAL IV STA (17:15)
[2021-08-19] MEDS: SODIUM CHLORIDE 0.9% 1000ML 1,000 ML IV SCH (17:45)
--- NOTE | 2021-08-19 19:41 | History & Physical Report ---
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 Degroot presenting with left chest wall hematoma and acute blood loss anemia. Increase in bloody output from the right APRIL drain since this AM. Patient with Hgb of 7.7 on arrival, symptomatic anemia with dizziness, SOB. Blood transfusion x 1 unit started in the ER. She was taken to the OR this evening by Dr. Oviedo for evacuation of left chest wall hematoma. A large amount of clot removed - 2L. Arterial bleed identified from possible collateral of either the intercostal or pectoralis major s/p suture ligation. -Admit to medical with telemetry -Monitor CBC q 8 hours -Transfusion for ongoing bleed -Appreciate General Surgery assistance -Hold ASA for now (2) S/P bilateral mastectomy: Plan: As above, acute blood loss anemia -Pain control - Oxycodone 10mg po q 4 hours as needed for pain, bowel regimen -Zofran as needed for nausea -Monitor CBC (3) Hypothyroidism: Plan: Chronic -Check TSH with AM labs -Continue Synthroid 50mcg po daily (4) Asthma: Plan: Chronic. No SOB, cough or wheeze at present -Continue Albuterol as needed (5) Chronic depression: Plan: Chronic -Continue Paroxetine (6) Diabetes: Plan: Chronic. Poorly controlled with last [id number]=28.9 on 08/04/19. Elevated blood sugar = 218 -Continue Insulin 25u qAM -ISS -Goal blood sugar 100 - 140 -CC diet as tolerated (7) Hypertension: Plan: Chronic. Blood pressure borderline low upon arrival. 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 Degroot on 08/03/21. Patient became tachycardic and hypotensive with development of a left chest hematoma requiring return to the OR for washout on 08/04/21. She was found to have a large amount of clot and a small arterial bleed from inferior portion of the pec major. A APRIL drain was placed. Patient received 1u PRBCs. Patient was discharged home on 08/07/21. Patient woke this morning with bleeding noted from her left breast. She noted an increased amount of bloody output from her APRIL drain with passage of clots - emptied 10 times at home as well as soaked dressings. Patient endorses feeling weak, fatigued, dizziness with positional changes and ESPINO Upon arrival to the ER patient was noted to be pale and mildly hypotensive. Moderate hematoma present of the left breast. General Surgery was consulted for surgical management. Patient is to proceed to the OR for hematoma evacuation and control of bleeding. ER Course: Cefepime, Daptomycin, Dilaudid, Zofran, NSS Allergies Allergy/AdvReac Type Severity Reaction Status Date / Time ibuprofen Allergy Severe Anaphylaxis Verified 08/19/21 19:23 clavulanic acid Allergy Intermediate Hives Verified 08/19/21 19:23 Sulfa (Sulfonamide Allergy Intermediate HIVES Verified 08/19/21 19:23 Antibiotics) sulfamethoxazole Allergy Intermediate HIVES Verified 08/19/21 19:23 trimethoprim Allergy Intermediate HIVES Verified 08/19/21 19:23 metformin Allergy Mild Diarrhea Verified 08/19/21 19:23 Penicillins Allergy Mild Rash Verified 08/19/21 19:23 Home Medications Medication Instructions Recorded Confirmed Type ezetimibe 10 mg tablet 10 mg PO QAM 05/22/21 08/19/21 History insulin lispro 100 unit/mL 15 unit SUBCUT TIDWMEAL 05/22/21 08/19/21 History subcutaneous pen (Humalog KwikPen (U-100) Insulin) levothyroxine 50 mcg tablet 50 mcg PO QAM 05/22/21 08/19/21 History linagliptin 5 mg tablet (Tradjenta) 5 mg PO QAM 05/22/21 08/19/21 History losartan 100 mg tablet 100 mg PO QAM 05/22/21 08/19/21 History lovastatin 40 mg tablet 40 mg PO HS 05/22/21 08/19/21 History montelukast 10 mg tablet 10 mg PO HS 05/22/21 08/19/21 History pantoprazole 40 mg tablet,delayed 40 mg PO QAM 05/22/21 08/19/21 History release paroxetine HCl 10 mg tablet 10 mg PO QAM 05/22/21 08/19/21 History paroxetine HCl 40 mg tablet 40 mg PO QAM 05/22/21 08/19/21 History pregabalin 150 mg capsule 150 mg PO TID 05/22/21 08/19/21 History ropinirole 0.5 mg tablet 0.5 mg PO HS 05/22/21 08/19/21 History albuterol sulfate 2.5 mg INHALATION Q4H PRN 05/24/21 08/19/21 History aspirin 81 mg tablet,delayed 81 mg PO QAM 05/24/21 08/19/21 History release loratadine 10 mg capsule 10 mg PO QAM 05/24/21 08/19/21 History albuterol sulfate 90 mcg/actuation 2 puff INHALATION QID PRN 06/23/21 08/19/21 History aerosol inhaler insulin detemir U-100 100 unit/mL 25 unit SUBCUT QAM 07/28/21 08/19/21 History subcutaneous solution (Levemir U-100 Insulin) oxycodone 5 mg tablet 5 - 10 mg PO Q4H PRN 08/19/21 08/19/21 History Past Med/Surg History Medical History (Updated 08/20/21 @ 00:11 by Celeste Ramirez DO) Allergic rhinitis Asthma LAST USED INHLAER>6 MONTHS AGO Atypical ductal hyperplasia of left breast plan to do bilateral mastectomy Depression Diabetes mellitus, type 2 Fatty liver Fibromyalgia GERD (gastroesophageal reflux disease) Hx of seizure disorder LAST EPISODE 2005 (NO NEUROLOGIST) Hyperlipidemia Hypertension Hypothyroidism IBS (irritable bowel syndrome) Restless leg syndrome Temporomandibular joint disorder NO LOCKING Surgical History (Updated 08/09/21 @ 11:37 by Esther Serrano RN) Amputated toe LEFT FOOT SMALL TOE R/T INFECTION H/O bilateral mastectomy (08/03/21) Bilateral Breast Mastectomy with Left [place] Lymph Node Biopsy Dr. Degroot 08/03/2021 H/O breast surgery left 11/11/2013 benign/clip placement H/O sinus surgery MULTIPLE TIMES History of arthroscopy RT KNEE History of cardiac cath 25 YEARS AGO (NO STENTS) History of carpal tunnel surgery LEFT/RT History of colonoscopy History of esophagogastroduodenoscopy (EGD) History of evacuation of hematoma (08/04/21) Evactuation of Left Breast Mastectomy Hematoma Dr. Degroot 08-04-2021 History of hysterectomy History of partial mastectomy of left breast (07/18/21) Left Breast Partial Mastectomy Dr. Degroot 07-18-2021 History of tooth extraction Hx of elbow surgery RT/LEFT ULNAR NERVE RELEASE S/P breast biopsy, left (07/04/21) Left Breast Biopsy with Wire Localization(Left) - Edvin Degroot, DO Family History Mother Breast cancer Grandmother (Maternal) Breast cancer Father Diabetes Heart disease Hypertension Other No family history of adverse response to anesthesia Social History Smoking Status: Never smoker Second Hand Exposure: No; Hx Alcohol Use: No Hx Substance Use: No Preferred Language: Emirati Communication Ability: Effective Two Way Radio Installer Required: No Beliefs That Will Affect Care: None marital status: Current Living Situation: Spouse current occupational status: disabled Feels Safe at Home: Yes Assistive Devices: None Review of Systems Review of Systems: All systems reviewed & are unremarkable except as noted in HPI & below Physical Exam Physical Exam: General: patient resting comfortably, NAD, non-toxic in appearance, AA&O x 4 Skin: warm, dry, intact, no rashes or lesions, +pallor HEENT: NC/AT, PERRL, EOMI, anicteric sclera, conjunctiva without injection, external ear normal to inspection and nontender, nares patent, moist mucus membranes, dentition intact, no oropharyngeal lesions, neck supple, trachea midline, no LAD, no thyromegaly, no JVD Heart: +S1/S2, regular, no m/r/g Left breast with tender, palpable hematoma, bright red blood noted on bra, APRIL drain in place with appx 30mL of bloody drainage (was just emptied by nursing) Lungs: equal air entry bilaterally, no rales/rhonchi/wheezes Abd: +BS, soft, NT/ND, no masses/organomegaly/ascites Ext: warm, 2+ pulses in UE/LE bilaterally, no clubbing/cyanosis or edema Neuro: nonfocal, patient AA&O x 4, speech intact, no facial droop, moving all extremities on command with equal strength 5/5 Results & Data Results & Data ([facility]) Vital Signs (Past 12 Hours) Vital Signs Temp Pulse Pulse Resp BP BP Pulse Ox 08/19/21 19:30 94 H 20 85/56 L 98 08/19/21 19:15 88 20 103/57 L 98 08/19/21 19:00 89 15 105/58 L 98 08/19/21 18:45 95 H 17 100/58 L 95 08/19/21 18:39 36.7 C 94 H 18 129/61 98 08/19/21 18:30 96 H 94 H 18 101/56 L 101/56 L 97 08/19/21 18:23 36.6 C 98 H 13 73/39 L 98 08/19/21 18:15 97 H 15 97 08/19/21 18:09 36.7 C 99 H 19 129/61 96 08/19/21 18:08 36.7 C 93 H 15 101/56 L 99 08/19/21 18:00 97 H 15 99 08/19/21 17:45 94 H 24 95 08/19/21 17:30 91 H 22 99 08/19/21 17:15 88 14 100 08/19/21 17:00 96 H 21 100 08/19/21 16:59 95 H 18 129/61 100 08/19/21 16:45 93 H 17 100 08/19/21 16:30 92 H 15 100 08/19/21 16:15 95 H 19 100 08/19/21 16:00 94 H 24 100 08/19/21 15:56 92 H 14 100 08/19/21 15:55 99 H 20 100 08/19/21 15:22 36.9 C 100 H 20 99/61 L 100 Laboratory Results Laboratory Results WBC 16.53 K/uL (4.8-10.8) H 08/19/21 16:24 RBC 2.61 M/uL (4.2-5.4) L 08/19/21 16:24 Hgb 7.7 g/dL (12.0-16.0) L 08/19/21 16:24 Hct 25.0 % (37-47) L 08/19/21 16:24 MCV 95.8 fL (80-100) 08/19/21 16:24 MCH 29.5 pg (25-34) 08/19/21 16:24 MCHC 30.8 g/dL (32-36) L 08/19/21 16:24 RDW Std Deviation 56.5 fL (36.4-46.3) H 08/19/21 16:24 RDW Coeff of Shannon 17.2 % (11.5-14.5) H 08/19/21 16:24 Plt Count 544 K/uL (130-400) H 08/19/21 16:24 MPV 9.4 fL (7.4-10.4) 08/19/21 16:24 Immature Gran % (Auto) 0.4 % 08/19/21 16:24 Neut % (Auto) 77.4 % 08/19/21 16:24 Lymph % (Auto) 16.6 % 08/19/21 16:24 Gates % (Auto) 5.1 % 08/19/21 16:24 Eos % (Auto) 0.4 % 08/19/21 16:24 Baso % (Auto) 0.1 % 08/19/21 16:24 Neut # (Auto) 12.79 K/uL (1.4-6.5) H 08/19/21 16:24 Lymph # (Auto) 2.74 K/uL (1.2-3.4) 08/19/21 16:24 Gates # (Auto) 0.85 K/uL (0.11-0.59) H 08/19/21 16:24 Eos # (Auto) 0.06 K/uL (0-0.5) 08/19/21 16:24 Baso # (Auto) 0.02 K/uL (0-0.2) 08/19/21 16:24 Immature Gran # (Auto) 0.07 K/uL (0.00-0.02) H 08/19/21 16:24 Polychromasia 2+ 08/19/21 16:24 Poikilocytosis Present 08/19/21 16:24 PT 10.0 Seconds (9.0-12.0) 08/19/21 16:24 INR 1.0 (0.9-1.1) 08/19/21 16:24 APTT 23.2 Seconds (21.0-31.0) 08/19/21 16:24 PTT Ratio 0.9 08/19/21 16:24 Sodium 138 mmol/L (136-145) 08/19/21 16:24 Potassium 4.6 mmol/L (3.5-5.1) 08/19/21 16:24 Chloride 106 mmol/L (98-107) 08/19/21 16:24 Carbon Dioxide 26 mmol/L (21-32) 08/19/21 16:24 Anion Gap 6.0 (3-11) 08/19/21 16:24 BUN 18 mg/dl (7-18) 08/19/21 16:24 Creatinine 0.81 mg/dl (0.6-1.2) 08/19/21 16:24 Est Cr Clr Drug Dosing 86.7 ml/min 08/19/21 16:24 Est GFR ( Amer) 96.1 ml/min 08/19/21 16:24 Est GFR (Non-Af Amer) 82.9 ml/min 08/19/21 16:24 BUN/Creatinine Ratio 22.1 (10-20) H 08/19/21 16:24 Glucose 271 mg/dl (70-99) H 08/19/21 16:24 Lactate 1.9 mmol/L (0.4-2.0) 08/19/21 18:36 Calcium 8.9 mg/dl (8.5-10.1) 08/19/21 16:24 Magnesium 2.1 mg/dl (1.8-2.4) 08/19/21 16:24 Total Bilirubin 0.2 mg/dl (0.2-1) 08/19/21 16:24 AST 8 U/L (15-37) L 08/19/21 16:24 ALT 13 U/L (12-78) 08/19/21 16:24 Alkaline Phosphatase 79 U/L (45-117) 08/19/21 16:24 Total Protein 6.3 gm/dl (6.4-8.2) L 08/19/21 16:24 Albumin 2.5 gm/dl (3.4-5.0) L 08/19/21 16:24 Globulin 3.8 gm/dl (2.5-4.0) 10/09/21 16:24 Albumin/Globulin Ratio 0.7 (0.9-2) L 08/19/21 16:24 COVID-19 Eval Order Covid19 at [facility] 08/19/21 19:25 Blood Type O Positive 08/19/21 16:43 Antibody Screen NEGATIVE 08/19/21 16:43 Crossmatch See Detail 08/19/21 16:43 Impressions Chest X-Ray 08/19/21 15:49 XR chest 1V portable HISTORY: 51 years-old Female SEPSIS acute sepsis with recent breast surgery COMPARISON: Chest radiograph 08/05/2021 TECHNIQUE: Portable upright AP view the chest FINDINGS: Cardiac mediastinal and hilar silhouettes are within normal limits. No pneumothorax, pleural effusion, overt pulmonary edema or airspace consolidation. Azygos lobe and fissure. Haziness of the left hemithorax is likely secondary to overlying soft tissue. Surgical drainage catheter left chest wall. Questioned avascular necrosis of the right humeral head. Degenerative changes of the shoulders and spine. IMPRESSION: 1. The lungs appear clear. 2. Surgical drainage catheter of the left chest wall. ACT 112: Negative or not required by law. The above report was generated using voice recognition software. It may contain grammatical, syntax or spelling errors. Electronically signed by: Genaro Ivan M.D. 08/19/2021 4:14 PM PG Care Time/CCT Total # of Minutes Spent Total Time Spent with Patient: Total time spent is greater than 50% in coordination of care (as documented) at patient's floor/unit and/or counseling patient: Coding Level of Care Code 53473 Initial Inpt Care Lvl 3 Diagnoses Acute blood loss anemia D62 Hypothyroidism E03.9 Asthma J45.909 Chronic depression F32.9 Diabetes E11.9 Hypertension I10 S/P bilateral mastectomy Z90.13 Hyperlipidemia E78.5
--- NOTE | 2021-08-19 20:07 | Surgery Consultation ---
Date of Consultation August 19, 2021 Assessment & Plan (1) Postoperative hemorrhage: Present situation was discussed with the patient the and the medical service we will be admitting her and follow her closely because of her other medical condition I feel that given the situation she needs to go back to the operating room and evacuate this hematoma that is tense and continues to bleed through the reservoir are intact the still open the incision up and cleaned and evacuate the hematoma hopefully finding a site sometimes he do not find a definitive site and 1 or 2 drains will be replaced the procedure was explained to the and the and they would like to proceed accordingly also discussed that with the medical service surgery was called Covid test is pending Lab noted regarding the values of the hemoglobin Also noted the vitals when she first came in All questions were answered History of Present Illness Reason for Consultation: Hematoma left chest wall History of Present Illness This pleasant 51-year-old female on 08/03/2021 underwent a right mastectomy and left mastectomy with axillary dissection for ductal carcinoma by Dr. Degroot on 924 was taken back to surgery for hematoma and bleeding from the left chest wall and a small arterial branch from the pectoralis major was identified was discharged after 2 days in the hospital with a drain in the left chest wall and was seen by Dr. Degroot in the office on 08/14/2021 where at that time he took the drain off his right chest wall and continues to leave the left chest wall drainage intact since he was still draining some serous bloody fluid (the actually has pictures that he took compared to drainage from the right chest drain in the left) and will give an appointment to follow-up with him this upcoming week but last evening and today she noticed that the drainage in the drain system was persistently more bloody admitted to change frequently and also noted that the left chest wall is getting markedly larger and tense and came into the emergency room to be evaluated Allergies Allergy/AdvReac Type Severity Reaction Status Date / Time ibuprofen Allergy Severe Anaphylaxis Verified 08/19/21 19:23 clavulanic acid Allergy Intermediate Hives Verified 08/19/21 19:23 Sulfa (Sulfonamide Allergy Intermediate HIVES Verified 08/19/21 19:23 Antibiotics) sulfamethoxazole Allergy Intermediate HIVES Verified 08/19/21 19:23 trimethoprim Allergy Intermediate HIVES Verified 08/19/21 19:23 metformin Allergy Mild Diarrhea Verified 08/19/21 19:23 Penicillins Allergy Mild Rash Verified 08/19/21 19:23 Home Medications Medication Instructions Recorded Confirmed Type ezetimibe 10 mg tablet 10 mg PO QAM 05/22/21 08/19/21 History insulin lispro 100 unit/mL 15 unit SUBCUT TIDWMEAL 05/22/21 08/19/21 History subcutaneous pen (Humalog KwikPen (U-100) Insulin) levothyroxine 50 mcg tablet 50 mcg PO QAM 05/22/21 08/19/21 History linagliptin 5 mg tablet (Tradjenta) 5 mg PO QAM 05/22/21 08/19/21 History losartan 100 mg tablet 100 mg PO QAM 05/22/21 08/19/21 History lovastatin 40 mg tablet 40 mg PO 05/22/21 08/19/21 History montelukast 10 mg tablet 10 mg PO 05/22/21 08/19/21 History pantoprazole 40 mg tablet,delayed 40 mg PO QA 05/22/21 08/19/21 History release paroxetine HCl 10 mg tablet 10 mg PO QA 05/22/21 08/19/21 History paroxetine HCl 40 mg tablet 40 mg PO QAM 05/22/21 08/19/21 History pregabalin 150 mg capsule 150 mg PO TID 05/22/21 08/19/21 History ropinirole 0.5 mg tablet 0.5 mg PO 05/22/21 08/19/21 History albuterol sulfate 2.5 mg INHALATION Q4H PRN 05/24/21 08/19/21 History aspirin 81 mg tablet,delayed 81 mg PO QA 05/24/21 08/19/21 History release loratadine 10 mg capsule 10 mg PO QAM 05/24/21 08/19/21 History albuterol sulfate 90 mcg/actuation 2 puff INHALATION QID PRN 06/23/21 08/19/21 History aerosol inhaler insulin detemir U-100 100 unit/mL 25 unit SUBCUT QA 07/28/21 08/19/21 History subcutaneous solution (Levemir U-100 Insulin) oxycodone 5 mg tablet 5 - 10 mg PO Q4H PRN 08/19/21 08/19/21 History Patient History Medical History (Updated 08/19/21 @ 16:06 by Stas Herrera MD) Allergic rhinitis Asthma LAST USED INHLAER>6 MONTHS AGO Atypical ductal hyperplasia of left breast plan to do bilateral mastectomy Depression Diabetes mellitus, type 2 Fatty liver Fibromyalgia GERD (gastroesophageal reflux disease) Hx of seizure disorder LAST EPISODE 2005 (NO NEUROLOGIST) Hyperlipidemia Hypertension Hypothyroidism IBS (irritable bowel syndrome) Restless leg syndrome Temporomandibular joint disorder NO LOCKING Surgical History (Updated 08/09/21 @ 11:37 by Esther Serrano RN) Amputated toe LEFT FOOT SMALL TOE R/T INFECTION H/O bilateral mastectomy (08/03/21) Bilateral Breast Mastectomy with Left [place] Lymph Node Biopsy Dr. Degroot 08/03/2021 H/O breast surgery left 11/11/2013 benign/clip placement H/O sinus surgery MULTIPLE TIMES History of arthroscopy RT KNEE History of cardiac cath 25 YEARS AGO (NO STENTS) History of carpal tunnel surgery LEFT/RT History of colonoscopy History of esophagogastroduodenoscopy (EGD) History of evacuation of hematoma (08/04/21) Evactuation of Left Breast Mastectomy Hematoma Dr. Degroot 08-04-2021 History of hysterectomy History of partial mastectomy of left breast (07/18/21) Left Breast Partial Mastectomy Dr. Degroot 07-18-2021 History of tooth extraction Hx of elbow surgery RT/LEFT ULNAR NERVE RELEASE S/P breast biopsy, left (07/04/21) Left Breast Biopsy with Wire Localization(Left) - Edvin Degroot DO Family History Mother Breast cancer Grandmother (Maternal) Breast cancer Father Diabetes Heart disease Hypertension Other No family history of adverse response to anesthesia Social History Smoking Status: Never smoker Second Hand Exposure: No; Hx Alcohol Use: No Hx Substance Use: No Preferred Language: Czech Communication Ability: Effective Shop Firer/Fireman Required: No Beliefs That Will Affect Care: None marital status: Current Living Situation: Spouse current occupational status: disabled Feels Safe at Home: Yes Assistive Devices: None Physical Exam Physical Exam: Is alert coherent at this present time is infusing 1 unit of blood She has an Jerzy wrap surrounding her chest chest wall which I removed and noticed a significant tense hematoma extending almost to the clavicle the incision is intact there is no drainage but the drainage in the bulb is grossly bloody the patient feels uncomfortable in the left chest and she is having some pain Results & Data ([facility]) Vital Signs (Past 12 Hours) Vital Signs Temp Pulse Pulse Resp BP BP Pulse Ox 08/19/21 19:45 92 H 19 90/44 L 98 08/19/21 19:30 94 H 20 85/56 L 98 08/19/21 19:15 88 20 103/57 L 98 08/19/21 19:00 89 15 105/58 L 98 08/19/21 18:45 95 H 17 100/58 L 95 08/19/21 18:39 36.7 C 94 H 18 129/61 98 08/19/21 18:30 96 H 94 H 18 101/56 L 101/56 L 97 08/19/21 18:23 36.6 C 98 H 13 73/39 L 98 08/19/21 18:15 97 H 15 97 08/19/21 18:09 36.7 C 99 H 19 129/61 96 08/19/21 18:08 36.7 C 93 H 15 101/56 L 99 08/19/21 18:00 97 H 15 99 08/19/21 17:45 94 H 24 95 08/19/21 17:30 91 H 22 99 08/19/21 17:15 88 14 100 08/19/21 17:00 96 H 21 100 08/19/21 16:59 95 H 18 129/61 100 08/19/21 16:45 93 H 17 100 08/19/21 16:30 92 H 15 100 08/19/21 16:15 95 H 19 100 08/19/21 16:00 94 H 24 100 08/19/21 15:56 92 H 14 100 08/19/21 15:55 99 H 20 100 08/19/21 15:22 36.9 C 100 H 20 99/61 L 100 PG Care Time/CCT Total # of Minutes Spent Total Time Spent with Patient: Total time spent is greater than 50% in coordination of care (as documented) at patient's floor/unit and/or counseling patient: Coding Level of Care Code 63182 Inpt Consult Level 3 Diagnoses Postoperative hemorrhage
[2021-08-19] MEDS ORDERED: MIDAZOLAM HCL 1 MG/ML 2ML VIAL ONE (20:45)
[2021-08-19] MEDS ORDERED: fentaNYL citrate 100 MCG/2 ML VIAL ONE ×3 (20:46→23:08)
--- NOTE | 2021-08-19 21:04 | Anesthesiology Consultation ---
Date of Service August 19, 2021 Assessment & Plan Chart Review Chart Review: Acceptable Risk for Surgery Consults Requested none History Surgery Operation Date: 08/19/21 20:15 Proposed Procedures p Evacuation Hematoma - Junaid Oviedo MD, FACS Height/Weight Height: 5 ft 4 in Weight: 89.4 kg Allergies Allergy/AdvReac Type Severity Reaction Status Date / Time ibuprofen Allergy Severe Anaphylaxis Verified 08/19/21 19:23 clavulanic acid Allergy Intermediate Hives Verified 08/19/21 19:23 Sulfa (Sulfonamide Allergy Intermediate HIVES Verified 08/19/21 19:23 Antibiotics) sulfamethoxazole Allergy Intermediate HIVES Verified 08/19/21 19:23 trimethoprim Allergy Intermediate HIVES Verified 08/19/21 19:23 metformin Allergy Mild Diarrhea Verified 08/19/21 19:23 Penicillins Allergy Mild Rash Verified 08/19/21 19:23 Medications Home Medications Medication Instructions Recorded Confirmed Last Taken ezetimibe 10 mg tablet 10 mg PO QA 05/22/21 08/19/21 08/02/21 09:30 insulin lispro 100 unit/mL 15 unit SUBCUT TIDWMEAL 05/22/21 08/19/21 08/02/21 09:30 subcutaneous pen (Humalog KwikPen (U-100) Insulin) levothyroxine 50 mcg tablet 50 mcg PO [facility] 05/22/21 08/19/21 08/02/21 09:30 linagliptin 5 mg tablet (Tradjenta) 5 mg PO [facility] 05/22/21 08/19/21 08/02/21 09:30 losartan 100 mg tablet 100 mg PO [facility] 05/22/21 08/19/21 08/02/21 09:30 lovastatin 40 mg tablet 40 mg PO 05/22/21 08/19/21 08/02/21 11:30 montelukast 10 mg tablet 10 mg PO 05/22/21 08/19/21 08/02/21 23:30 pantoprazole 40 mg tablet,delayed 40 mg PO [facility] 05/22/21 08/19/21 08/02/21 09:30 release paroxetine HCl 10 mg tablet 10 mg PO QA 05/22/21 08/19/21 08/02/21 09:30 paroxetine HCl 40 mg tablet 40 mg PO [facility] 05/22/21 08/19/2108/02/21 09:30 pregabalin 150 mg capsule 150 mg PO TID 05/22/21 08/19/21 08/02/21 23:30 ropinirole 0.5 mg tablet 0.5 mg PO HS 05/22/21 08/19/21 08/02/21 23:30 albuterol sulfate 2.5 mg INHALATION Q4H PRN 05/24/21 08/19/21 Unknown aspirin 81 mg tablet,delayed 81 mg PO QA 05/24/21 08/19/21 08/02/21 09:30 release loratadine 10 mg capsule 10 mg PO QAM 05/24/21 08/19/21 08/02/21 09:30 albuterol sulfate 90 mcg/actuation 2 puff INHALATION QID PRN 06/23/21 08/19/21 Unknown aerosol inhaler insulin detemir U-100 100 unit/mL 25 unit SUBCUT [facility] 07/28/21 08/19/21 08/02/21 09:30 subcutaneous solution (Levemir U-100 Insulin) oxycodone 5 mg tablet 5 - 10 mg PO Q4H PRN 08/19/21 08/19/21 Unknown Active Medications Generic Name Dose Route Start Last Admin Trade Name Freq PRN Reason Stop Dose Admin Hydromorphone HCl 0.5 mg 08/19/21 16:43 08/19/21 16:48 Hydromorphone Inj 0.5 Mg/0.5 Ml Syr IV 09/02/21 16:42 0.5 mg Q15M PRN Administration Pain Sodium Chloride 1,000 mls @ 150 mls/hr 08/19/21 16:00 08/19/21 17:45 Nss 1000ml IV 09/18/21 15:59 150 mls/hr .[id number] [place] Administration Past Medical History Medical History (Updated 08/19/21 @ 16:06 by Stas Herrera MD) Allergic rhinitis Asthma LAST USED INHLAER>6 MONTHS AGO Atypical ductal hyperplasia of left breast plan to do bilateral mastectomy Depression Diabetes mellitus, type 2 Fatty liver Fibromyalgia GERD (gastroesophageal reflux disease) Hx of seizure disorder LAST EPISODE 2005 (NO NEUROLOGIST) Hyperlipidemia Hypertension Hypothyroidism IBS (irritable bowel syndrome) Restless leg syndrome Temporomandibular joint disorder NO LOCKING Past Family History Family History Mother Breast cancer Grandmother (Maternal) Breast cancer Father Diabetes Heart disease Hypertension Other No family history of adverse response to anesthesia Past Surgical History Surgical History (Updated 08/09/21 @ 11:37 by Esther Serrano, ZENY) Amputated toe LEFT FOOT SMALL TOE R/T INFECTION H/O bilateral mastectomy (08/03/21) Bilateral Breast Mastectomy with Left [place] Lymph Node Biopsy Dr. Degroot 08/03/2021 H/O breast surgery left 11/11/2013 benign/clip placement H/O sinus surgery MULTIPLE TIMES History of arthroscopy RT KNEE History of cardiac cath 25 YEARS AGO (NO STENTS) History of carpal tunnel surgery LEFT/RT History of colonoscopy History of esophagogastroduodenoscopy (EGD) History of evacuation of hematoma (08/04/21) Evactuation of Left Breast Mastectomy Hematoma Dr. Degroot 08-04-2021 History of hysterectomy History of partial mastectomy of left breast (07/18/21) Left Breast Partial Mastectomy Dr. Degroot 07-18-2021 History of tooth extraction Hx of elbow surgery RT/LEFT ULNAR NERVE RELEASE S/P breast biopsy, left (07/04/21) Left Breast Biopsy with Wire Localization(Left) - Edvin Degroot, DO Social History Smoking Status: Never smoker Hx Alcohol Use: No Alcohol type: wine alcohol intake frequency: holidays/special occasions only Hx Substance Use: No substance use type: does not use Physical Exam Vital Signs Last Vital Signs Temp 36.7 C 08/19/21 18:39 Pulse 92 H 08/19/21 19:45 Resp 19 08/19/21 19:45 BP 90/44 L 08/19/21 19:45 Pulse Ox 98 08/19/21 19:45 Testing Laboratory Results 08/19/21 16:24 08/19/21 16:24 PT 10.0 Seconds (9.0-12.0) 08/19/21 16:24 INR 1.0 (0.9-1.1) 08/19/21 16:24 APTT 23.2 Seconds (21.0-31.0) 08/19/21 16:24 Blood Type O Positive 08/19/21 16:43 Antibody Screen NEGATIVE 08/19/21 16:43
[2021-08-19] MEDS ORDERED: PROPOFOL IV EMULSION 10 MG/ML 20 ML VIAL IV ONE (22:11)
[2021-08-19] MEDS ORDERED: DEXAMETHASONE SOD INJ 4 MG/ML VIAL ONE (22:11)
[2021-08-19] MEDS ORDERED: ONDANSETRON INJ 2 MG/ML 2 ML VIAL ONE (22:11)
[2021-08-19] MEDS ORDERED: LIDOCAINE 2% 2 ML VIAL/AMP(20MG/ML) INFIL ONE (22:12)
--- NOTE | 2021-08-19 22:33 | Post Operative Brief Note ---
PG Immediate Post Op with CF Date of Surgery August 19, 2021 Pre & Post Diagnosis Operation Date: 08/19/21 20:15 Pre-Op Diagnosis: Left chest wall hematoma Post-Op Diagnosis: Left chest wall hematoma I identified the patient and participated in the time-out.: Yes Procedure Operation Date: 08/19/21 20:15 Actual Procedures p Evacuation Hematoma Left Chest Wall(Left) - Junaid Oviedo MD, FACS Surgeon Junaid Oviedo MD, FACS [employer] Specialist 0 Estimated Blood Loss 5 Findings Consistent with Post-Op Diagnosis Specimens Specimen Description: none Drains Ilia-Fairchild Drain (x2)
--- NOTE | 2021-08-19 22:44 | Operative Report ---
Post Operative Report Pre & Post Diagnosis Operation Date: 08/19/21 20:15 Pre-Op Diagnosis: Left chest wall hematoma Post-Op Diagnosis: Left chest wall hematoma I identified the patient and participated in the time-out.: Yes Procedure Operation Date: 08/19/21 20:15 Actual Procedures p Evacuation Hematoma Left Chest Wall(Left) - Junaid Oviedo MD, FACS The patient was brought into the operating theater general LMA anesthesia prior dressing was removed we prepped the chest left chest neck area and upper abdomen with Betadine solution properly draped systemic antibiotics on board patient identified timeout was had at this point I cut the suture that was holding the Edvin drain in the left chest area and took it off the operative field keep in a sterile field at this point we then took the Dermabond off the incision and incision was opened using the scalpel made to enter the chest wall large amount of clot was easily appreciated we are able to endoscope without elevating the upper flap and lower flap and circumferentially we sealed about 2 kidney basin of clot about 2000 cc we packed the chest wall with labs and circumferentially went around to identify a bleed which was easily appreciated medially upper aspect left underneath the clavicle there was an arterial bleed that may have been a collateral of either the intercostal or pectoralis major we were able then to suture ligate that with 2-0 silk securely then on meticulously went around the whole chest wall irrigated and evacuated of all its blood clots. When we were done we did not see any more arterial bleeds or any other bleeding appreciated I elected to close it by placing 219 Edvin drains one that was cut and placed underneath the axilla and the other 1 come across the anterior pectoralis area these were sutured to the skin edge with 2-0 silk suture and the incision was closed with 2-0 running Vicryl and the skin edges approximated with alfred 4 x 4 gauze was placed along with ABD on both incisions and an Jerzy wrap circumferentially held in place procedure was tolerated well by the patient from my point of view 5 cc blood loss but we recovered by 2 L of blood clots Addendum spoke with Dilan at [phone] Surgeon Junaid Oviedo MD, FACS [employer] 0 Estimated Blood Loss 5 Findings Consistent with Post-Op Diagnosis Specimens blood cloths Description of Procedure merda I attest to the content of the Intraoperative Record and any orders documented therein. Any exceptions are noted below.
--- NOTE | 2021-08-19 22:50 | Operative Report ---
Post Operative Report Pre & Post Diagnosis Operation Date: 08/19/21 20:15 Pre-Op Diagnosis: Left chest wall hematoma Post-Op Diagnosis: Left chest wall hematoma I identified the patient and participated in the time-out.: Yes Procedure Operation Date: 08/19/21 20:15 Actual Procedures p Evacuation Hematoma Left Chest Wall(Left) - Junaid Oviedo MD, FACS Surgeon Junaid Oviedo MD, FACS [employer] 0 Estimated Blood Loss 5 Findings Consistent with Post-Op Diagnosis Specimens blood cloths Description of Procedure merda I attest to the content of the Intraoperative Record and any orders documented therein. Any exceptions are noted below.
[2021-08-19] MEDS ORDERED: oxyCODONE/ACETAMINOPHEN 5mg/325mg TAB PO PRN (22:52)
[2021-08-19] MEDS ORDERED: fentaNYL citrate 100 MCG/2 ML VIAL IV PRN (23:09)
[2021-08-19] MEDS ORDERED: ATROPINE SULFATE 0.1 MG/ML 10ML SYR IV PRN (23:09)
[2021-08-19] MEDS ORDERED: ONDANSETRON INJ 2 MG/ML 2 ML VIAL IV PRN (23:09)
[2021-08-19] MEDS ORDERED: HYDROmorphone INJ 2 MG/ML SYR/VIAL IV PRN (23:09)
[2021-08-19] MEDS ORDERED: ePHEDrine sulfate 50 MG/ML AMP IV PRN (23:09)
--- NOTE | 2021-08-19 23:22 | Anesthesiology Progress Note ---
Date of Service August 19, 2021 Anesthesia Post Procedure Vital Signs Vital Signs: Temp Pulse Pulse Resp BP BP Pulse Ox 08/19/21 23:10 36.6 C 103 H 16 112/61 97 08/19/21 23:01 36.6 C 112 H 16 112/63 97 08/19/21 22:55 36.1 C L 106 H 16 99 08/19/21 22:42 36.0 C L 109 H 16 126/69 100 08/19/21 19:45 92 H 19 90/44 L 98 08/19/21 19:30 94 H 20 85/56 L 98 08/19/21 19:15 88 20 103/57 L 98 08/19/21 19:00 89 15 105/58 L 98 08/19/21 18:45 95 H 17 100/58 L 95 08/19/21 18:39 36.7 C 94 H 18 129/61 98 08/19/21 18:30 96 H 94 H 18 101/56 L 101/56 L 97 08/19/21 18:23 36.6 C 98 H 13 73/39 L 98 08/19/21 18:15 97 H 15 97 08/19/21 18:09 36.7 C 99 H 19 129/61 96 08/19/21 18:08 36.7 C 93 H 15 101/56 L 99 08/19/21 18:00 97 H 15 99 08/19/21 17:45 94 H 24 95 08/19/21 17:30 91 H 22 99 08/19/21 17:15 88 14 100 08/19/21 17:00 96 H 21 100 08/19/21 16:59 95 H 18 129/61 100 08/19/21 16:45 93 H 17 100 08/19/21 16:30 92 H 15 100 08/19/21 16:15 95 H 19 100 08/19/21 16:00 94 H 24 100 08/19/21 15:56 92 H 14 100 08/19/21 15:55 99 H 20 100 08/19/21 15:22 36.9 C 100 H 20 99/61 L 100 Pain Intensity Left Chest: Pain Intensity: 5 Transfer of Care Handoff Completed per policy Notes Mental Status: alert / awake / arousable and participated in evaluation Patient Amnestic to Procedure: Yes Nausea / Vomiting: adequately controlled Pain: adequately controlled Airway Patency, RR, SpO2: stable & adequate BP & HR: stable & adequate Hydration State: stable & adequate Anesthetic Complications: no major complications apparent
[2021-08-20] MEDS ORDERED: CARBOHYDRATES FOR HYPOGLYCEMIA PO PRN (00:17)
[2021-08-20] MEDS ORDERED: oxyCODONE HCL IR 5 MG TAB (IMMEDIATE RELEASE) PO PRN (00:17)
[2021-08-20] MEDS ORDERED: ONDANSETRON INJ 2 MG/ML 2 ML VIAL IV PRN (00:17)
[2021-08-20] MEDS ORDERED: ACETAMINOPHEN 325 MG TAB PO PRN (00:17)
[2021-08-20] MEDS ORDERED: GLUCOSE 10 TABS/TUBE PO PRN (00:17)
[2021-08-20] MEDS ORDERED: ALBUTEROL 0.083% NEBU SOLN 3 ML VIAL INH PRN (00:17)
[2021-08-20] MEDS ORDERED: GLUCOSE 40% GEL 15 GM TUBE PO PRN (00:17)
[2021-08-20] MEDS ORDERED: DEXTROSE 50% 50 ML SYRINGE IV PRN (00:17)
[2021-08-20] MEDS ORDERED: GLUCAGON FOR INJ 1 MG VIAL SQ PRN (00:17)
[2021-08-20 00:31] LABS: Basophils # (auto) 0.01 K/uL (0-0.2); Basophils % (auto) 0.1 %; Eosinophils # (auto) 0.12 K/uL (0-0.5); Eosinophils % (auto) 0.8 %; Hematocrit (blood only) 24.1 % (37-47); Hemoglobin 7.4 g/dL (12.0-16.0); Immature Granulocytes # (auto) 0.04 K/uL (0.00-0.02); Immature Granulocytes % (auto) 0.3 %; Lymphocytes # (auto) 1.59 K/uL (1.2-3.4); Lymphocytes % (auto) 10.7 %; Mean Corpuscular Hgb Conc 30.7 g/dL (32-36); Mean Corpuscular Volume 94.5 fL (80-100); Mean Platelet Volume 9.1 fL (7.4-10.4); Monocytes # (auto) 0.63 K/uL (0.11-0.59); Monocytes % (auto) 4.2 %; Neutrophils # (auto) 12.51 K/uL (1.4-6.5); Neutrophils % (auto) 83.9 %; Platelet Count 396 K/uL (130-400); RDW Coefficient of Variation 17.5 % (11.5-14.5); RDW Standard Deviation 56.2 fL (36.4-46.3); Red Blood Count 2.55 M/uL (4.2-5.4)
[2021-08-20] MEDS: INSULIN ASPART 100 UNITS/ML 3 ML PEN SC SCH ×5 (00:49→21:57)
[2021-08-20] MEDS: SODIUM CHLORIDE 0.9% 1000ML 1,000 ML IV SCH (01:00)
[2021-08-20 01:09] LABS: Polychromasia 1+
[2021-08-20] MEDS ORDERED: LEVOTHYROXINE SODIUM 50 MCG TABLET PO SCH (06:30)
[2021-08-20 07:39] LABS: Basophils # (auto) 0.01 K/uL (0-0.2); Basophils % (auto) 0.1 %; Eosinophils # (auto) 0.01 K/uL (0-0.5); Eosinophils % (auto) 0.1 %; Hematocrit (blood only) 25.4 % (37-47); Hemoglobin 7.8 g/dL (12.0-16.0); Immature Granulocytes # (auto) 0.03 K/uL (0.00-0.02); Immature Granulocytes % (auto) 0.2 %; Lymphocytes # (auto) 1.65 K/uL (1.2-3.4); Mean Corpuscular Hemoglobin 28.8 pg (25-34); Mean Corpuscular Hgb Conc 30.7 g/dL (32-36); Mean Corpuscular Volume 93.7 fL (80-100); Mean Platelet Volume 9.3 fL (7.4-10.4); Monocytes % (auto) 3.9 %; Neutrophils # (auto) 10.54 K/uL (1.4-6.5); Neutrophils % (auto) 82.7 %; Platelet Count 424 K/uL (130-400); RDW Standard Deviation 57.5 fL (36.4-46.3); Red Blood Count 2.71 M/uL (4.2-5.4); White Blood Count 12.74 K/uL (4.8-10.8)
[2021-08-20 07:56] LABS: BUN Creatinine Ratio 19.9 (10-20); Calcium 8.3 mg/dl (8.5-10.1); Creatinine Clr Calc Pharmacy 115.8 ml/min; Est GFR (African American) 119.3 ml/min; Est GFR (Non-African American) 102.9 ml/min; Potassium 4.3 mmol/L (3.5-5.1)
[2021-08-20] MEDS ORDERED: SODIUM CHLORIDE 0.9% 250 ML IV PRN (07:58)
[2021-08-20] MEDS ORDERED: SODIUM CHLORIDE 0.9% 1000ML 250 ML IV ONE (08:02)
[2021-08-20 08:04] LABS: Polychromasia 1+
[2021-08-20 08:07] LABS: Thyroid Stimulating Hormone 0.253 uIu/ml (0.300-4.500)
[2021-08-20] MEDS ORDERED: PHARMACY GLYCEMIC MGMT CONSULT PRN (08:10)
--- NOTE | 2021-08-20 08:11 | Hospitalist Progress Note ---
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 Degroot presenting with left chest wall hematoma and acute blood loss anemia. Increase in bloody output from the right APRIL drain since this AM. Patient with Hgb of 7.7 on arrival, symptomatic anemia with dizziness, SOB, ESPINO. Blood transfusion x 1 unit started in the ER. Lactic 2.6 --> 1.7 after IVF General surgery consulted POD 1 s/p evacuation of left chest wall hematoma with Dr Oviedo. -- A large amount of clot removed - 2L. Arterial bleed identified from possible collateral of either the intercostal or pectoralis major s/p suture ligation. s/p 2 u PRBC -- 2nd unit this morning for hgb 7.8 and repeat 8.9 WBC elevated to 16k on admission (reactive), currently 12.7k. Given previous infection with drainage prior to mastectomy would continue to monitor for signs of infection at this time --> Got Dapto/Cefepime pre-op -- per surgery no need for abx at this time. Continue to hold ASA for now Monitor on telemetry -- has had episodes of PAT, rates in 100s-110s. Continued inpatient stay for hemodynamic monitoring/drain output. (2) S/P bilateral mastectomy: Plan: As above, acute blood loss anemia s/p 2 u PRBC as above Pain control -- oxycodone Nausea -- zofran Monitor drain output, CBC as above CTA NEGATIVE for PE as presented again with hypotension/tachycardia/elevated WBC on admission similar to last admit and not previously done -- NEGATIVE for PE but does note nodules that will require follow up outpatinet. See Fleischner Criteria per report. Also notes possible reactive airway disease and/or pneumonitis. Stable on room air currently. No hx asthma/COPD but is obese and consider hypoventilation syndrome/PFTs as outpatient? (3) Diabetes: Plan: Chronic. 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, Lispro 15u TID with meals Pharmacy consulted for glycemic control given prior need for gtt inpatient -- patient reports improvement of sugars from 3-400s to 200s most recently Lantus 50u SQ this AM Continue to monitor BSGs (4) Hypothyroidism: Plan: Chronic -- I did check a TSH last admission which showed overtreatment of thyroid however does not appear to have had any reduction in her levothyroxine TSH was checked again, LOW --> Decreased to 37.5mg daily and would send at d/c with recs for repeat TFT in 4-6 weeks with further adjustments as needed (5) Asthma: Plan: Chronic as reported although patient denies any history of such? No SOB, cough or wheeze at present -Continue Albuterol as needed Add fluticasone daily for above Rec updating PFTs as outpatient as no records of such --> Will also need follow up with PCP and ?lung nodule clinic for continued monitoring of her pulmonary nodules (6) Chronic depression: Plan: Chronic -Continue Paroxetine (7) Hypertension: Plan: Chronic. Blood pressure borderline low upon arrival. Has improved with IVF and blood transfusion Hoding losartan today for borderline hypotension Denies any further lightheadedness/dizziness Continue to monitor (8) Hyperlipidemia: Plan: Chronic -Continue Lovastatin 40mg po HS, zetia 10mg AM (9) Pulmonary nodules: Plan: on CTA as above --- need outpt f/u (10) Severe anemia: Plan: Acute blood loss anemia 2nd to arterial bleed as abvoe Hgb improved and stable Did get Venofer x 3 during last admission as I checked an iron and was low at 19 received 2 units PRBCs here CBC in AM (11) Leukocytosis: Plan: On admission with WBC 14.9k, 2nd to above however are no abx needed per surgery at this time Did get Dapto/Cefepime in ER as above WBC currently 12.7k and patient afebrile Continue to monitor -- low threshold for abx (12) High serum lactate: Plan: On admission --> resolved with IVF on repeat (13) Acute hypotension: Plan: improved with IVF and PRBC however borderline this afternoon and will provide additional 250cc NSS and continue to monitor. Asymptomatic at this time Continue to monitor for s/sx bleeding (14) B12 deficiency: Plan: B12 checked last admit, borderline low 329 -- previously got B12 injections in the office Placed on daily supplementation and rec f/u PCP to consider continued injections Plan: Continued monitoring Possible d/c tomorrow if remains stable Admission and Anticipated Discharge Date Admission Date: August 19, 2021 Supervising Physician Co-Signing Physician Notes PA Supervision Note: I did not personally see or examine the patient today, but I verified all quinn points of JORGE Dawson's assessment and plan with the following exceptions/additions: Continue to monitor serial CBC through tomorrow q8h and transfuse if continues to drop again as still remains mildly tachycardic and borderline hypotensive Subjective Patient evaluated this morning. Feeling much better. Went to OR last night for evacuation 2L hematoma. Pain much improved. 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 Less ESPINO. Getting 2u of PRBC today. No chest pain (reported she did have this yesterday along with dizziness). Discussed continued monitoring overnight -- she is agreeable. HR fast -- no hx of CT Chest in past but did deny personal hx DVT. Concerns given previously admitted hypotensive/tachycardia and will eval to be safe. Discussed low TSH and will decreased levothyroxine and this should be continued at d/c. Discussed low B12 last admission and will start replacement and repeat in AM. She does endorse LE numbness/tingling/paresthesias at times felt to be related to her DM but she did endorse she previously got B12 injections. Consult in for pharmacy given BSGs elevated and needed insulin gtt last admission --> she states she has been checking sugars at home as they had been elevated in 3-400s with highs in AM and had been checking at night then as well. She notes they recently have been improving to the 200s but still working on adjustments. Questions/concerns addressed at this time. Review of Systems Review of Systems: All systems reviewed & are unremarkable except as noted in HPI & below Physical Exam Physical Exam: General: patient resting comfortably, NAD, non-toxic in appearance, AA&O x 4, improvement in pallor Skin: dry, warm HEENT: NC/AT, PERRL, EOMI, anicteric sclera, conjunctiva without injection, external ear normal to inspection and nontender, nares patent, moist mucus mem branes, dentition intact, no oropharyngeal lesions, neck supple, trachea midline, no LAD, no thyromegaly, no JVD Heart: +S1/S2, regular, 97bpm, no m/r/g Left breast with abd binder on, non-tender compared to day prior, drains x 2 with scant bloody drainage Lungs: equal air entry bilaterally, no rales/rhonchi/wheezes, on room air with SpO2 97% Abd: +BS, soft, NT/ND, no masses/organomegaly/ascites Ext: warm, 2+ pulses in UE/LE bilaterally, no clubbing/cyanosis or edema Neuro: nonfocal, patient AA&O x 4, speech intact, no facial droop, moving all extremities on command with equal strength 5/5 Results & Data Results & Data ([facility]) Vital Signs (Past 12 Hours) Vital Signs Temp Pulse Pulse Resp BP Pulse Ox 08/20/21 07:53 36.7 C 95 H 20 90/60 L 98 08/20/21 06:20 94 H 08/20/21 04:00 36.7 C 102 H 20 105/66 91 08/20/21 01:55 36.8 C 99 H 18 110/69 97 08/20/21 00:50 92 H 08/20/21 00:45 36.5 C 100 H 18 100/63 98 08/19/21 23:45 36.7 C 109 H 20 115/74 96 08/19/21 23:20 36.6 C 105 H 16 113/62 97 08/19/21 23:10 36.6 C 103 H 16 112/61 97 08/19/21 23:01 36.6 C 112 H 16 112/63 97 08/19/21 22:55 36.1 C L 106 H 16 99 08/19/21 22:42 36.0 C L 109 H 16 126/69 100 Laboratory Results 08/20/21 08/20/21 08/20/21 Range/Units 08:00 07:06 07:06 WBC 12.74 H (4.8-10.8) K/uL RBC 2.71 L (4.2-5.4) M/uL Hgb 7.8 L (12.0-16.0) g/dL Hct 25.4 L (37-47) % MCV 93.7 (80-100) fL MCH 28.8 (25-34) pg MCHC 30.7 L (32-36) g/dL RDW Std Deviation 57.5 H (36.4-46.3) fL RDW Coeff of Shannon 18.0 H (11.5-14.5) % Plt Count 424 H (130-400) K/uL MPV 9.3 (7.4-10.4) fL Immature Gran % (Auto) 0.2 % Neut % (Auto) 82.7 % Lymph % (Auto) 13.0 % [place] % (Auto) 3.9 % Eos % (Auto) 0.1 % Baso % (Auto) 0.1 % Neut # (Auto) 10.54 H (1.4-6.5) K/uL Lymph # (Auto) 1.65 (1.2-3.4) K/uL [place] # (Auto) 0.50 (0.11-0.59) K/uL Eos # (Auto) 0.01 (0-0.5) K/uL Baso # (Auto) 0.01 (0-0.2) K/uL Immature Gran # (Auto) 0.03 H (0.00-0.02) K/uL Polychromasia 1+ Poikilocytosis PT (9.0-12.0) Seconds INR (0.9-1.1) APTT (21.0-31.0) Seconds PTT Ratio Sodium 140 (136-145) mmol/L Potassium 4.3 (3.5-5.1) mmol/L Chloride 110 H (98-107) mmol/L Carbon Dioxide 25 (21-32) mmol/L Anion Gap 6.0 (3-11) BUN 12 (7-18) mg/dl Creatinine 0.62 (0.6-1.2) mg/dl Est Cr Clr Drug Dosing 115.8 ml/min Est GFR ( Amer) 119.3 ml/min Est GFR (Non-Af Amer) 102.9 ml/min BUN/Creatinine Ratio 19.9 (10-20) Glucose 239 H (70-99) mg/dl POC Glucose 275 H (70-99) mg/dl Lactate (0.4-2.0) mmol/L Calcium 8.3 L (8.5-10.1) mg/dl Magnesium (1.8-2.4) mg/dl Total Bilirubin (0.2-1) mg/dl AST (15-37) U/L ALT (12-78) U/L Alkaline Phosphatase (45-117) U/L Total Protein (6.4-8.2) gm/dl Albumin (3.4-5.0) gm/dl Globulin (2.5-4.0) gm/dl Albumin/Globulin Ratio (0.9-2) TSH 0.253 L (0.300-4.500) uIu/ml COVID-19 Eval Order SARS-CoV-2 (PCR) (Negative) Blood Type Antibody Screen Crossmatch 08/20/21 08/20/21 08/20/21 Range/Units 06:15 00:19 00:19 WBC 14.90 H (4.8-10.8) K/uL RBC 2.55 L (4.2-5.4) M/uL Hgb 7.4 L (12.0-16.0) g/dL Hct 24.1 L (37-47) % MCV 94.5 (80-100) fL MCH 29.0 (25-34) pg MCHC 30.7 L (32-36) g/dL RDW Std Deviation 56.2 H (36.4-46.3) fL RDW Coeff of Shannon 17.5 H (11.5-14.5) % Plt Count 396 (130-400) K/uL MPV 9.1 (7.4-10.4) fL Immature Gran % (Auto) 0.3 % Neut % (Auto) 83.9 % Lymph % (Auto) 10.7 % [place] % (Auto) 4.2 % Eos % (Auto) 0.8 % Baso % (Auto) 0.1 % Neut # (Auto) 12.51 H (1.4-6.5) K/uL Lymph # (Auto) 1.59 (1.2-3.4) K/uL [place] # (Auto) 0.63 H (0.11-0.59) K/uL Eos # (Auto) 0.12 (0-0.5) K/uL Baso # (Auto) 0.01 (0-0.2) K/uL Immature Gran # (Auto) 0.04 H (0.00-0.02) K/uL Polychromasia 1+ Poikilocytosis PT (9.0-12.0) Seconds INR (0.9-1.1) APTT (21.0-31.0) Seconds PTT Ratio Sodium (136-145) mmol/L Potassium (3.5-5.1) mmol/L Chloride (98-107) mmol/L Carbon Dioxide (21-32) mmol/L Anion Gap (3-11) BUN (7-18) mg/dl Creatinine (0.6-1.2) mg/dl Est Cr Clr Drug Dosing ml/min Est GFR ( Amer) ml/min Est GFR (Non-Af Amer) ml/min BUN/Creatinine Ratio (10-20) Glucose (70-99) mg/dl POC Glucose 253 H 218 H (70-99) mg/dl Lactate (0.4-2.0) mmol/L Calcium (8.5-10.1) mg/dl Magnesium (1.8-2.4) mg/dl Total Bilirubin (0.2-1) mg/dl AST (15-37) U/L ALT (12-78) U/L Alkaline Phosphatase (45-117) U/L Total Protein (6.4-8.2) gm/dl Albumin (3.4-5.0) gm/dl Globulin (2.5-4.0) gm/dl Albumin/Globulin Ratio (0.9-2) TSH (0.300-4.500) uIu/ml COVID-19 Eval Order SARS-CoV-2 (PCR) (Negative) Blood Type Antibody Screen Crossmatch 08/19/21 08/19/21 08/19/21 Range/Units 22:46 19:25 19:25 WBC (4.8-10.8) K/uL RBC (4.2-5.4) M/uL Hgb (12.0-16.0) g/dL Hct (37-47) % MCV (80-100) fL MCH (25-34) pg MCHC (32-36) g/dL RDW Std Deviation (36.4-46.3) fL RDW Coeff of Shannon (11.5-14.5) % Plt Count (130-400) K/uL MPV (7.4-10.4) fL Immature Gran % (Auto) % Neut % (Auto) % Lymph % (Auto) % [place] % (Auto) % Eos % (Auto) % Baso % (Auto) % Neut # (Auto) (1.4-6.5) K/uL Lymph # (Auto) (1.2-3.4) K/uL [place] # (Auto) (0.11-0.59) K/uL Eos # (Auto) (0-0.5) K/uL Baso # (Auto) (0-0.2) K/uL Immature Gran # (Auto) (0.00-0.02) K/uL Polychromasia Poikilocytosis PT (9.0-12.0) Seconds INR (0.9-1.1) APTT (21.0-31.0) Seconds PTT Ratio Sodium (136-145) mmol/L Potassium (3.5-5.1) mmol/L Chloride (98-107) mmol/L Carbon Dioxide (21-32) mmol/L Anion Gap (3-11) BUN (7-18) mg/dl Creatinine (0.6-1.2) mg/dl Est Cr Clr Drug Dosing ml/min Est GFR ( Amer) ml/min Est GFR (Non-Af Amer) ml/min BUN/Creatinine Ratio (10-20) Glucose (70-99) mg/dl POC Glucose 160 H (70-99) mg/dl Lactate (0.4-2.0) mmol/L Calcium (8.5-10.1) mg/dl Magnesium (1.8-2.4) mg/dl Total Bilirubin (0.2-1) mg/dl AST (15-37) U/L ALT (12-78) U/L Alkaline Phosphatase (45-117) U/L Total Protein (6.4-8.2) gm/dl Albumin (3.4-5.0) gm/dl Globulin (2.5-4.0) gm/dl Albumin/Globulin Ratio (0.9-2) TSH (0.300-4.500) uIu/ml COVID-19 Eval Order Covid19 at [facility] SARS-CoV-2 (PCR) NEGATIVE (Negative) Blood Type Antibody Screen Crossmatch 08/19/21 08/19/21 08/19/21 Range/Units 18:36 16:43 16:24 WBC (4.8-10.8) K/uL RBC (4.2-5.4) M/uL Hgb (12.0-16.0) g/dL Hct (37-47) % MCV (80-100) fL MCH (25-34) pg MCHC (32-36) g/dL RDW Std Deviation (36.4-46.3) fL RDW Coeff of Shannon (11.5-14.5) % Plt Count (130-400) K/uL MPV (7.4-10.4) fL Immature Gran % (Auto) % Neut % (Auto) % Lymph % (Auto) % [place] % (Auto) % Eos % (Auto) % Baso % (Auto) % Neut # (Auto) (1.4-6.5) K/uL Lymph # (Auto) (1.2-3.4) K/uL [place] # (Auto) (0.11-0.59) K/uL Eos # (Auto) (0-0.5) K/uL Baso # (Auto) (0-0.2) K/uL Immature Gran # (Auto) (0.00-0.02) K/uL Polychromasia Poikilocytosis PT (9.0-12.0) Seconds INR (0.9-1.1) APTT (21.0-31.0) Seconds PTT Ratio Sodium (136-145) mmol/L Potassium (3.5-5.1) mmol/L Chloride (98-107) mmol/L Carbon Dioxide (21-32) mmol/L Anion Gap (3-11) BUN (7-18) mg/dl Creatinine (0.6-1.2) mg/dl Est Cr Clr Drug Dosing ml/min Est GFR ( Amer) ml/min Est GFR (Non-Af Amer) ml/min BUN/Creatinine Ratio (10-20) Glucose (70-99) mg/dl POC Glucose (70-99) mg/dl Lactate 1.9 2.6 H* (0.4-2.0) mmol/L Calcium (8.5-10.1) mg/dl Magnesium (1.8-2.4) mg/dl Total Bilirubin (0.2-1) mg/dl AST (15-37) U/L ALT (12-78) U/L Alkaline Phosphatase (45-117) U/L Total Protein (6.4-8.2) gm/dl Albumin (3.4-5.0) gm/dl Globulin (2.5-4.0) gm/dl Albumin/Globulin Ratio (0.9-2) TSH (0.300-4.500) uIu/ml COVID-19 Eval Order SARS-CoV-2 (PCR) (Negative) Blood Type O Positive Antibody Screen NEGATIVE Crossmatch See Detail 08/19/21 08/19/21 08/19/21 Range/Units 16:24 16:24 16:24 WBC 16.53 H (4.8-10.8) K/uL RBC 2.61 L (4.2-5.4) M/uL Hgb 7.7 L (12.0-16.0) g/dL Hct 25.0 L (37-47) % MCV 95.8 (80-100) fL MCH 29.5 (25-34) pg MCHC 30.8 L (32-36) g/dL RDW Std Deviation 56.5 H (36.4-46.3) fL RDW Coeff of Shannon 17.2 H (11.5-14.5) % Plt Count 544 H (130-400) K/uL MPV 9.4 (7.4-10.4) fL Immature Gran % (Auto) 0.4 % Neut % (Auto) 77.4 % Lymph % (Auto) 16.6 % [place] % (Auto) 5.1 % Eos % (Auto) 0.4 % Baso % (Auto) 0.1 % Neut # (Auto) 12.79 H (1.4-6.5) K/uL Lymph # (Auto) 2.74 (1.2-3.4) K/uL [place] # (Auto) 0.85 H (0.11-0.59) K/uL Eos # (Auto) 0.06 (0-0.5) K/uL Baso # (Auto) 0.02 (0-0.2) K/uL Immature Gran # (Auto) 0.07 H (0.00-0.02) K/uL Polychromasia 2+ Poikilocytosis Present PT 10.0 (9.0-12.0) Seconds INR 1.0 (0.9-1.1) APTT 23.2 (21.0-31.0) Seconds PTT Ratio 0.9 Sodium 138 (136-145) mmol/L Potassium 4.6 (3.5-5.1) mmol/L Chloride 106 (98-107) mmol/L Carbon Dioxide 26 (21-32) mmol/L Anion Gap 6.0 (3-11) BUN 18 (7-18) mg/dl Creatinine 0.81 (0.6-1.2) mg/dl Est Cr Clr Drug Dosing 86.7 ml/min Est GFR ( Amer) 96.1 ml/min Est GFR (Non-Af Amer) 82.9 ml/min BUN/Creatinine Ratio 22.1 H (10-20) Glucose 271 H (70-99) mg/dl POC Glucose (70-99) mg/dl Lactate (0.4-2.0) mmol/L Calcium 8.9 (8.5-10.1) mg/dl Magnesium 2.1 (1.8-2.4) mg/dl Total Bilirubin 0.2 (0.2-1) mg/dl AST 8 L (15-37) U/L ALT 13 (12-78) U/L Alkaline Phosphatase 79 (45-117) U/L Total Protein 6.3 L (6.4-8.2) gm/dl Albumin 2.5 L (3.4-5.0) gm/dl Globulin 3.8 (2.5-4.0) gm/dl Albumin/Globulin Ratio 0.7 L (0.9-2) TSH (0.300-4.500) uIu/ml COVID-19 Eval Order SARS-CoV-2 (PCR) (Negative) Blood Type Antibody Screen Crossmatch Diagnostic Findings Chest X-Ray 08/20/21 08:15 SINGLE VIEW CHEST CLINICAL HISTORY: Sepsis. FINDINGS: An AP, portable, upright chest radiograph is compared to study dated 08/19/2021. The cardiomediastinal silhouette is unremarkable. An accessory azygous fissure is incidentally noted. The lungs and pleural spaces are clear. No pneumothorax is seen. The bony thorax is grossly intact. Surgical drains are noted in the left chest wall. IMPRESSION: No active disease in the chest. ACT 112: Negative or not required by law. Electronically signed by: Eamon Arevalo M.D. 08/20/2021 8:27 AM Chest CTA 08/20/21 09:10 CT ANGIOGRAM OF THE CHEST CLINICAL HISTORY: Atypical chest pain. Dyspnea. COMPARISON STUDY: Chest x-ray dated 08/20/2021. TECHNIQUE: Following the IV administration of 115 cc of Optiray 320, CT angiogram of the chest was performed from the upper abdomen to the thoracic inlet utilizing the pulmonary embolus protocol. Images are reviewed in the axial, sagittal, and coronal planes. 3-D MIPS images are created and assessed. IV contrast was administered without complication. A dose lowering technique was utilized adhering to the principles of ALARA. CT DOSE: 505.17 mGy.cm FINDINGS: Thyroid: Imaged portions of the thyroid gland are normal in size and attenuation. Thoracic aorta: The thoracic aorta is normal in caliber and demonstrates standard 3-vessel arch anatomy. No dissection is seen. Pulmonary vasculature: The pulmonary trunk is mildly dilated measuring 3.3 cm in diameter. This suggests pulmonary artery hypertension. There are no filling defects identified in main, lobar, or segmental pulmonary branches to suggest pulmonary embolus. Heart: The heart is top normal in size and without pericardial effusion. There are coronary artery calcifications. Lungs and pleural spaces: There is no lobar consolidation dr pleural effusion. Dependent atelectasis is seen at the lung bases. An accessory azygous fissure is incidentally noted. There is a 4 mm left upper lobe pulmonary nodule seen on image #178. A 3 mm pulmonary nodule in the lingula is seen on image #132. A 6 mm right upper lobe pulmonary nodule is seen on image #208. Diffuse peribronchial thickening is observed. Minimal patchy airspace opacities are seen in the right upper and right middle lobes. Mediastinum: There are calcified mediastinal lymph nodes. No adenopathy is seen. Huong: There are calcified hilar lymph nodes. No adenopathy is seen. Axillae: There is no axillary lymphadenopathy. Upper abdomen: There is a tiny hiatal hernia. Partially visualized upper abdominal viscera is otherwise within normal limits. Skeletal structures: The skeletal structures appear osteopenic. Arthritic change is noted in the shoulders. No lytic or blastic bony lesions are seen. Soft tissues: Dermal thickening is noted in the chest wall and there is evidence of bilateral mastectomy. Surgical drains are present within the left chest wall. Foci of subcutaneous gas are present within the ventral chest wall, and there is mild infiltration of the left pectoralis muscle. No organized fluid collection is identified. IMPRESSION: 1. There is no evidence of pulmonary embolus in the main, lobar, or segmental p ulmonary arteries. 2. Minimal patchy opacities in the right upper and right middle lobe may represent a mild infectious/inflammatory pneumonitis. Clinical correlation will be required. 3. Surgical drains are present within the left chest wall. No organized fluid collection is identified. 4. Induration of the left pectoralis muscle and foci of soft tissue gas within the chest wall are likely due to recent surgery. Clinical correlation will be required. 5. There are least 3 pulmonary nodules measure up to 6 mm. These are pathologically indeterminant and follow-up is recommended based on the Fleischner criteria below. 6. Diffuse peribronchial thickening suggests bronchitis/reactive airway disease. Clinical correlation will be required. Please refer to below summary of Fleischner criteria recommendations for follow- up of incidental CT nodules (Dawna Quintanilla, Guidelines for management of small pulmonary nodules detected on CT scans: A statement from the Fleischner Society, Radiology 237: [phone].) SOLID NODULES Solitary nodule size: <6 mm * low risk patients: no follow-up needed * high risk patients: optional CT at 12 months Solitary nodule size: 6-8 mm * low risk patients: follow-up at 6-12 months, then consider further follow-up at 18-24 months * high risk patients: initial follow-up CT at 6-12 months and then at 18-24 months if no change Solitary nodule size: >8 mm * either low or high risk patients - consider follow-up CT at 3 months, and/or CT-PET, and/or biopsy Multiple nodules size: <6 mm * low risk patients: no routine follow-up * high risk patients: optional CT at 12 months Multiple nodules size: 6-8 mm * low risk patients: follow-up at 3-6 months, then consider further follow-up at 18-24 months * high risk patients: follow-up at 3-6 months, then at 18-24 months if no change Multiple nodules size: >8 mm * low risk patients: follow-up at 3-6 months, then consider further follow-up at 18-24 months * high risk patients: follow-up at 3-6 months, then at 18-24 months if no change Note: newly detected indeterminate nodule in persons 35 years of age or older. * low risk patients: minimal or absent history of smoking and/or other known risk factors * high risk patients: history of smoking or of other known risk factors (e.g. first degree relative with lung cancer, or exposure to asbestos, radon, uranium) * if a nodule up to 8 mm is partly solid or is ground glass further follow-up is required after 24 months to exclude possible slow growing adenocarcinoma (KEENA) SUBSOLID NODULES Solitary pure ground-glass nodule * nodule size <6 mm - no CT follow-up required * nodule size >=6 mm - follow-up CT at 6-12 months, then every 2 years until 5 years Solitary part-solid nodule * nodule size <6 mm - no CT follow-up required * nodule size >=6 mm - follow-up CT at 3-6 months. If unchanged, and solid component remains <6 mm, then annual follow-up for 5 years Multiple subsolid nodules * nodule size <6 mm - follow-up CT at 3-6 months, consider further follow-up at 2 and 4 years if stable * nodule size >=6 mm - follow-up CT at 3-6 months, subsequent management based on the most suspicious nodule(s) ACT 112: Negative or not required by law. Electronically signed by: Eamon Arevalo M.D. 08/20/2021 1:07 PM PG Care Time/CCT Total # of Minutes Spent Total Time Spent with Patient: Total time spent is greater than 50% in coordination of care (as documented) at patient's floor/unit and/or counseling patient: Coding Level of Care Code 76853 Subseq Hosp Care Lvl 3 Diagnoses Acute blood loss anemia D62 S/P bilateral mastectomy Z90.13 Hypothyroidism E03.9 Asthma J45.909 Chronic depression F32.9 Diabetes E11.9 Hypertension I10 Hyperlipidemia E78.5 Pulmonary nodules R91.8 Severe anemia D64.9 Leukocytosis D72.829 High serum lactate R79.89 Acute hypotension I95.9 B12 deficiency E53.8
--- NOTE | 2021-08-20 08:28 | XRay Report ---
SINGLE VIEW CHEST CLINICAL HISTORY: Sepsis. FINDINGS: An AP, portable, upright chest radiograph is compared to study dated 08/19/2021. The cardiom ediastinal silhouette is unremarkable. An accessory azygous fissure is incidentally noted. The lungs and pleural spaces are clear. No pneumothorax is seen. The bony thorax is grossly intact. Surgical dr ains are noted in the left chest wall. IMPRESSION: No active disease in the chest. ACT 112: Negative or not required by law. Electronically signed by: Eamon Arevalo M.D. 08/20/2021 8:27 AM
[2021-08-20] MEDS: PARoxetine HCL 20 MG TAB PO SCH (08:38)
[2021-08-20] MEDS: EZETIMIBE 10 MG TABLET PO SCH (08:38)
[2021-08-20] MEDS: PARoxetine HCL 10 MG TAB PO SCH (08:38)
[2021-08-20] MEDS: PANTOprazole 40 MG TAB PO SCH (08:38)
[2021-08-20] MEDS: LORATADINE 10 MG TAB PO SCH (08:38)
[2021-08-20] MEDS: PREGABALIN 150 MG CAP PO SCH ×3 (08:42→21:59)
--- NOTE | 2021-08-20 08:43 | Surgery Progress Note ---
Date of Service August 20, 2021 Assessment & Plan (1) Postoperative hemorrhage: Plan: Present situation was discussed with the patient the and the medical service we will be admitting her and follow her closely because of her other medical condition I feel that given the situation she needs to go back to the operating room and evacuate this hematoma that is tense and continues to bleed through the reservoir are intact the still open the incision up and cleaned and evacuate the hematoma hopefully finding a site sometimes he do not find a definitive site and 1 or 2 drains will be replaced the procedure was explained to the and the and they would like to proceed accordingly also discussed that with the medical service surgery was called Covid test is pending Lab noted regarding the values of the hemoglobin Also noted the vitals when she first came in All questions were answered Plan: Intraoperative findings were discussed with the patient Her hemoglobin this morning was noted another unit of blood being transfused She is now approximately 12 hours postoperative evacuation of a chest wall hematoma secondary to arterial bleed identified the area pectoralis major insertion underneath the clavicle this may be a collateral of the anterior intercostal artery I advised the patient to stay here another day From a surgical point of view there is no need for antibiotics Admission and Anticipated Discharge Date Admission Date: August 19, 2021 Subjective Alert coherent had been up and around complaining of any dizziness At the present time she is eating her breakfast second hemoglobin is just started she had been given an IV bolus her blood pressure and heart rate in the 90s Physical Exam Physical Exam: Alert coherent no distress The Jerzy wrap is dry minimal drainage from Edvin drains Results & Data ([facility]) Vital Signs (Past 12 Hours) Vital Signs Temp Pulse Pulse Resp BP BP Pulse Ox 08/20/21 08:27 36.8 C 92 H 18 109/67 97 08/20/21 07:53 36.7 C 95 H 20 90/60 L 98 08/20/21 06:20 94 H 08/20/21 04:00 36.7 C 102 H 20 105/66 91 08/20/21 01:55 36.8 C 99 H 18 110/69 97 08/20/21 00:50 92 H 08/20/21 00:45 36.5 C 100 H 18 100/63 98 08/19/21 23:45 36.7 C 109 H 20 115/74 96 08/19/21 23:20 36.6 C 105 H 16 113/62 97 08/19/21 23:10 36.6 C 103 H 16 112/61 97 08/19/21 23:01 36.6 C 112 H 16 112/63 97 08/19/21 22:55 36.1 C L 106 H 16 99 08/19/21 22:42 36.0 C L 109 H 16 126/69 100 PG Care Time/CCT Total # of Minutes Spent Total Time Spent with Patient: Total time spent is greater than 50% in coordination of care (as documented) at patient's floor/unit and/or counseling patient: Coding Level of Care Code None Diagnoses Postoperative hemorrhage
[2021-08-20] MEDS ORDERED: INSULIN DETEMIR FLEXPEN/FLEX TOUCH 100 UNITS/ML 3ML SC SCH ×3 (09:00→21:00)
[2021-08-20] MEDS ORDERED: LOSARTAN POTASSIUM 50 MG TAB PO SCH (09:00)
--- NOTE | 2021-08-20 10:43 | Pharmacy Report ---
Pharmacy Glycemic Short Note 2 - Date of Service August 20, 2021 - Glycemic Short BSG Results (Last 24 hours): 08/19/21 08/19/21 08/20/21 16:24 22:46 00:19 Glucose 271 H POC Glucose 160 H 218 H 08/20/21 08/20/21 08/20/21 06:15 07:06 08:00 Glucose 239 H POC Glucose 253 H 275 H OUTPATIENT ANTIDIABETIC REGIMEN: * Levemir 25 units SQ AM * Humalog 15 units with meals * Tradjenta 5mg PO QAM * A1c = 12.9% on 08/04/21 ASSESSMENT: * 51 yo T2DM female known to pharmacy from previous admissions/glycemic consults - most recently last month. * Pt with poor outpatient control per A1c in July. A1c pending for today but will interpret cautiously as patient received blood transfusion the night prior. * Pt with sustained hyperglycemia secondary to stress, surgery, baseline poor control and steroids (dexamethasone 4mg IV) given in OR. * Will increase Levemir x 1 to cover for steroid induced hyperglycemia; tighten CF/CR and titrate based on BSG trends. * Goal is to maintain BSGs <180 (ideally <150) to prevent post op infectious complications PLAN FOR INPATIENT GLYCEMIC CONTROL: * Hold outpatient oral diabetes medications * Basal insulin * Levemir 50 units SQ x 1 dose this morning. Resume 25 units SQ daily starting 08/21 * Bolus insulin * NovoLog per scale ACHS or Q6hrs while NPO * Goal Range: Low 100 mg/dL - High 140 mg/dL * Correction Factor: 15 mg/dL/unit * Nutritional / Prandial insulin per carb ratio of 1 unit per 6 grams CHO consumed PLAN FOR DISCHARGE: * TBD
[2021-08-20] MEDS: CYANOCOBALAMIN 500 MCG TABLET (VITAMIN B-12) PO SCH (11:21)
--- NOTE | 2021-08-20 11:54 | Electrocardiogram Report ---
Test Reason : Blood Pressure : / mmHG Vent. Rate : 091 BPM Atrial Rate : 091 BPM P-R Int : 118 ms QRS Dur : 076 ms QT Int : 346 ms P-R-T Axes : 004 039 037 degrees QTc Int : 425 ms Normal sinus rhythm Normal ECG When compared with ECG of 05-AUG-2021 09:07, Nonspecific T wave abnormality, improved in Inferior leads Confirmed by Abelino Blandon ([id number]) on 08/20/2021 11:54:17 AM Referred By: REFERRED SELF Confirmed By:Abelino Blandon
[2021-08-20 11:55] LABS: Hematocrit (blood only) 28.8 % (37-47); Hemoglobin 8.9 g/dL (12.0-16.0)
[2021-08-20] MEDS ORDERED: OPTIRAY 320 125ml IV ONE (12:44)
--- NOTE | 2021-08-20 13:09 | CT Scan Report ---
CT ANGIOGRAM OF THE CHEST CLINICAL HISTORY: Atypical chest pain. Dyspnea. COMPARISON STUDY: Chest x-ray dated 08/20/2021. TECHNIQUE: Following the IV administration of 115 cc of Optiray 320, CT angiogram of the chest was pe rformed from the upper abdomen to the thoracic inlet utilizing the pulmonary embolus protocol. Images are reviewed in the axial, sagittal, and coronal planes. 3-D MIPS images are created and assessed. I V contrast was administered without complication. A dose lowering technique was utilized adhering to the principles of ALARA. CT DOSE: 505.17 mGy.cm FINDINGS: Thyroid: Imaged portions of the thyroid gland are normal in size and attenuation. Thoracic aorta: The thoracic aorta is normal in caliber and demonstrates standard 3-vessel arch anato my. No dissection is seen. Pulmonary vasculature: The pulmonary trunk is mildly dilated measuring 3.3 cm in diameter. This sugge sts pulmonary artery hypertension. There are no filling defects identified in main, lobar, or segment al pulmonary branches to suggest pulmonary embolus. Heart: The heart is top normal in size and without pericardial effusion. There are coronary artery ca lcifications. Lungs and pleural spaces: There is no lobar consolidation dr pleural effusion. Dependent atelectasis is seen at the lung bases. An accessory azygous fissure is incidentally noted. There is a 4 mm left u pper lobe pulmonary nodule seen on image #178. A 3 mm pulmonary nodule in the lingula is seen on imag e #132. A 6 mm right upper lobe pulmonary nodule is seen on image #208. Diffuse peribronchial thicken ing is observed. Minimal patchy airspace opacities are seen in the right upper and right middle lobes . Mediastinum: There are calcified mediastinal lymph nodes. No adenopathy is seen. Huong: There are calcified hilar lymph nodes. No adenopathy is seen. Axillae: There is no axillary lymphadenopathy. Upper abdomen: There is a tiny hiatal hernia. Partially visualized upper abdominal viscera is otherwi se within normal limits. Skeletal structures: The skeletal structures appear osteopenic. Arthritic change is noted in the shou lders. No lytic or blastic bony lesions are seen. Soft tissues: Dermal thickening is noted in the chest wall and there is evidence of bilateral mastect akshat. Surgical drains are present within the left chest wall. Foci of subcutaneous gas are present wit hin the ventral chest wall, and there is mild infiltration of the left pectoralis muscle. No organize d fluid collection is identified. IMPRESSION: 1. There is no evidence of pulmonary embolus in the main, lobar, or segmental pulmonary arteries. 2. Minimal patchy opacities in the right upper and right middle lobe may represent a mild infectious/ inflammatory pneumonitis. Clinical correlation will be required. 3. Surgical drains are present within the left chest wall. No organized fluid collection is identifie d. 4. Induration of the left pectoralis muscle and foci of soft tissue gas within the chest wall are lik ingrid due to recent surgery. Clinical correlation will be required. 5. There are least 3 pulmonary nodules measure up to 6 mm. These are pathologically indeterminant and follow-up is recommended based on the Fleischner criteria below. 6. Diffuse peribronchial thickening suggests bronchitis/reactive airway disease. Clinical correlation will be required. Please refer to below summary of Fleischner criteria recommendations for follow-up of incidental CT n odules (Dawna Quintanilla, Guidelines for management of small pulmonary nodules detected on CT scans: A sta tement from the Fleischner Society, Radiology 237: [phone].) SOLID NODULES Solitary nodule size: <6 mm * low risk patients: no follow-up needed * high risk patients: optional CT at 12 months Solitary nodule size: 6-8 mm * low risk patients: follow-up at 6-12 months, then consider further follow-up at 18-24 months * high risk patients: initial follow-up CT at 6-12 months and then at 18-24 months if no change Solitary nodule size: >8 mm * either low or high risk patients - consider follow-up CT at 3 months, and/or CT-PET, and/or biopsy Multiple nodules size: <6 mm * low risk patients: no routine follow-up * high risk patients: optional CT at 12 months Multiple nodules size: 6-8 mm * low risk patients: follow-up at 3-6 months, then consider further follow-up at 18-24 months * high risk patients: follow-up at 3-6 months, then at 18-24 months if no change Multiple nodules size: >8 mm * low risk patients: follow-up at 3-6 months, then consider further follow-up at 18-24 months * high risk patients: follow-up at 3-6 months, then at 18-24 months if no change Note: newly detected indeterminate nodule in persons 35 years of age or older. * low risk patients: minimal or absent history of smoking and/or other known risk factors * high risk patients: history of smoking or of other known risk factors (e.g. first degree relative with lung cancer, or exposure to asbestos, radon, uranium) * if a nodule up to 8 mm is partly solid or is ground glass further follow-up is required after [address] to exclude possible slow growing adenocarcinoma ([facility]) SUBSOLID NODULES Solitary pure ground-glass nodule * nodule size <6 mm - no CT follow-up required * nodule size >=6 mm - follow-up CT at 6-12 months, then every 2 years until 5 years Solitary part-solid nodule * nodule size <6 mm - no CT follow-up required * nodule size >=6 mm - follow-up CT at 3-6 months. If unchanged, and solid component remains <6 mm, then annual follow-up for 5 years Multiple subsolid nodules * nodule size <6 mm - follow-up CT at 3-6 months, consider further follow-up at 2 and 4 years if sta ble * nodule size >=6 mm - follow-up CT at 3-6 months, subsequent management based on the most suspiciou s nodule(s) ACT 112: Negative or not required by law. Electronically signed by: Eamon Arevalo M.D. 08/20/2021 1:07 PM
[2021-08-20] MEDS ORDERED: SODIUM CHLORIDE 0.9% 250 ML IV ONE (16:00)
[2021-08-20 16:30] LABS: Basophils # (auto) 0.03 K/uL (0-0.2); Basophils % (auto) 0.2 %; Eosinophils # (auto) 0.22 K/uL (0-0.5); Eosinophils % (auto) 1.5 %; Hematocrit (blood only) 27.2 % (37-47); Hemoglobin 8.5 g/dL (12.0-16.0); Immature Granulocytes # (auto) 0.05 K/uL (0.00-0.02); Immature Granulocytes % (auto) 0.3 %; Lymphocytes # (auto) 4.88 K/uL (1.2-3.4); Lymphocytes % (auto) 32.5 %; Mean Corpuscular Hemoglobin 29.6 pg (25-34); Mean Corpuscular Hgb Conc 31.3 g/dL (32-36); Mean Corpuscular Volume 94.8 fL (80-100); Mean Platelet Volume 9.5 fL (7.4-10.4); Monocytes # (auto) 1.59 K/uL (0.11-0.59); Monocytes % (auto) 10.6 %; Neutrophils # (auto) 8.23 K/uL (1.4-6.5); Neutrophils % (auto) 54.9 %; Platelet Count 366 K/uL (130-400); RDW Coefficient of Variation 17.1 % (11.5-14.5); RDW Standard Deviation 54.8 fL (36.4-46.3); Red Blood Count 2.87 M/uL (4.2-5.4)
[2021-08-20] MEDS: FLUTICASONE FUROATE 100MCG 14 PUFFS/INHALER INH SCH (18:30)
[2021-08-20] MEDS ORDERED: MONTELUKAST SODIUM 10 MG TABLET PO SCH (21:00)
[2021-08-20] MEDS ORDERED: rOPINIRole HCL 0.25 MG TABLET PO SCH (21:00)
[2021-08-20] MEDS ORDERED: LOVASTATIN 20 MG TAB PO SCH (21:00)
[2021-08-21 00:34] LABS: Hematocrit (blood only) 27.1 % (37-47); Hemoglobin 8.5 g/dL (12.0-16.0); Mean Corpuscular Hemoglobin 29.7 pg (25-34); Mean Corpuscular Hgb Conc 31.4 g/dL (32-36); Mean Corpuscular Volume 94.8 fL (80-100); Mean Platelet Volume 9.1 fL (7.4-10.4); Platelet Count 390 K/uL (130-400); RDW Coefficient of Variation 17.6 % (11.5-14.5); RDW Standard Deviation 56.4 fL (36.4-46.3); Red Blood Count 2.86 M/uL (4.2-5.4); White Blood Count 12.67 K/uL (4.8-10.8)
[2021-08-21 00:53] LABS: Basophils # (auto) 0.03 K/uL (0-0.2); Basophils % (auto) 0.2 %; Eosinophils # (auto) 0.36 K/uL (0-0.5); Eosinophils % (auto) 2.8 %; Immature Granulocytes # (auto) 0.03 K/uL (0.00-0.02); Immature Granulocytes % (auto) 0.2 %; Lymphocytes # (auto) 5.17 K/uL (1.2-3.4); Lymphocytes % (auto) 40.8 %; Monocytes # (auto) 1.27 K/uL (0.11-0.59); Neutrophils # (auto) 5.81 K/uL (1.4-6.5); Polychromasia 1+
[2021-08-21] MEDS ORDERED: LEVOTHYROXINE SODIUM 25 MCG TABLET PO SCH (06:30)
[2021-08-21 06:43] LABS: Basophils # (auto) 0.02 K/uL (0-0.2); Basophils % (auto) 0.2 %; Eosinophils # (auto) 0.36 K/uL (0-0.5); Eosinophils % (auto) 3.6 %; Hematocrit (blood only) 25.2 % (37-47); Hemoglobin 8.1 g/dL (12.0-16.0); Immature Granulocytes # (auto) 0.03 K/uL (0.00-0.02); Immature Granulocytes % (auto) 0.3 %; Lymphocytes # (auto) 4.67 K/uL (1.2-3.4); Lymphocytes % (auto) 46.5 %; Mean Corpuscular Hemoglobin 30.2 pg (25-34); Mean Corpuscular Hgb Conc 32.1 g/dL (32-36); Mean Platelet Volume 9.1 fL (7.4-10.4); Monocytes # (auto) 0.98 K/uL (0.11-0.59); Monocytes % (auto) 9.8 %; Neutrophils # (auto) 3.99 K/uL (1.4-6.5); Neutrophils % (auto) 39.6 %; Platelet Count 388 K/uL (130-400); RDW Coefficient of Variation 17.6 % (11.5-14.5); RDW Standard Deviation 57.6 fL (36.4-46.3); Red Blood Count 2.68 M/uL (4.2-5.4); White Blood Count 10.05 K/uL (4.8-10.8)
[2021-08-21 07:14] LABS: Albumin Globulin Ratio 0.7 (0.9-2); Albumin Level 2.1 gm/dl (3.4-5.0); BUN Creatinine Ratio 16.6 (10-20); Bilirubin,Total 0.2 mg/dl (0.2-1); Calcium 8.3 mg/dl (8.5-10.1); Creatinine Clr Calc Pharmacy 140.8 ml/min; Est GFR (African American) 127.2 ml/min; Est GFR (Non-African American) 109.8 ml/min; Globulin 3.2 gm/dl (2.5-4.0); Potassium 3.5 mmol/L (3.5-5.1); Total Protein 5.3 gm/dl (6.4-8.2)
[2021-08-21] MEDS: FLUTICASONE FUROATE 100MCG 14 PUFFS/INHALER INH SCH (08:59)
[2021-08-21] MEDS: INSULIN ASPART 100 UNITS/ML 3 ML PEN SC SCH ×2 (09:00→12:48)
[2021-08-21] MEDS ORDERED: INSULIN DETEMIR FLEXPEN/FLEX TOUCH 100 UNITS/ML 3ML SC SCH (09:00)
[2021-08-21] MEDS: PANTOprazole 40 MG TAB PO SCH (09:01)
[2021-08-21] MEDS: PARoxetine HCL 10 MG TAB PO SCH (09:02)
[2021-08-21] MEDS: EZETIMIBE 10 MG TABLET PO SCH (09:02)
[2021-08-21] MEDS: PARoxetine HCL 20 MG TAB PO SCH (09:02)
[2021-08-21] MEDS: CYANOCOBALAMIN 500 MCG TABLET (VITAMIN B-12) PO SCH (09:02)
[2021-08-21] MEDS: PREGABALIN 150 MG CAP PO SCH ×2 (09:08→13:17)
[2021-08-21 09:17] LABS: Basophils # (auto) 0.03 K/uL (0-0.2); Basophils % (auto) 0.3 %; Eosinophils # (auto) 0.31 K/uL (0-0.5); Eosinophils % (auto) 2.9 %; Hematocrit (blood only) 27.4 % (37-47); Hemoglobin 8.4 g/dL (12.0-16.0); Immature Granulocytes # (auto) 0.01 K/uL (0.00-0.02); Immature Granulocytes % (auto) 0.1 %; Lymphocytes # (auto) 3.92 K/uL (1.2-3.4); Lymphocytes % (auto) 36.7 %; Mean Corpuscular Hemoglobin 29.6 pg (25-34); Mean Corpuscular Hgb Conc 30.7 g/dL (32-36); Mean Corpuscular Volume 96.5 fL (80-100); Mean Platelet Volume 9.2 fL (7.4-10.4); Monocytes # (auto) 1.14 K/uL (0.11-0.59); Monocytes % (auto) 10.7 %; Neutrophils # (auto) 5.26 K/uL (1.4-6.5); Neutrophils % (auto) 49.3 %; Nucleated RBC # (auto) 0.02 K/uL (0-0); Nucleated RBC % (auto) 0.1 %; Platelet Count 354 K/uL (130-400); RDW Coefficient of Variation 17.7 % (11.5-14.5); RDW Standard Deviation 59.4 fL (36.4-46.3); Red Blood Count 2.84 M/uL (4.2-5.4); White Blood Count 10.67 K/uL (4.8-10.8)
[2021-08-21] MEDS: LORATADINE 10 MG TAB PO SCH (10:17)
--- NOTE | 2021-08-21 10:45 | Surgery Progress Note ---
Date of Service August 21, 2021 Assessment & Plan (1) Acute blood loss anemia: Plan: POD 2 evac left mastectomy hematoma continue drains H&H stable should be ok for d/c after seen by Dr. Degroot Admission and Anticipated Discharge Date Admission Date: August 19, 2021 Supervising Physician Co-Signing Physician Notes Patient is 48 hours postoperative reexploration for left chest wall bleeding She has received 2 units of blood since coming into the emergency room her blood pressure is 107/64 her heart rate is less than 90 He is not having any discomfort feels a lot better than preoperatively the Jerzy wrap was removed chest wall incisions look fine I removed the anterior Edvin drain left the axillary Edvin drain and redressed it did not apply Jerzy bandage Reportedly the patient can be discharged instructions were given regarding her activity especially not to do any strenuous activity or lifting hands above her head and to follow-up in our office on Saturday discussed with Dr. Edvin Degroot he woke up see the patient in make other arrangements as he sees fit Subjective no complaints, wants to go home Physical Exam Chest (Breasts): Additional Comments: Jerzy wrap intact APRIL #1) 10 cc, #2) 20 cc Results & Data ([facility]) Vital Signs (Past 12 Hours) Vital Signs Temp Pulse Resp BP Pulse Ox 08/21/21 03:00 36.8 C 82 18 99/60 L 95 PG Care Time/CCT Total # of Minutes Spent Total Time Spent with Patient: Total time spent is greater than 50% in coordination of care (as documented) at patient's floor/unit and/or counseling patient: Coding Level of Care Code None Diagnoses Acute blood loss anemia D62
--- NOTE | 2021-08-21 17:34 | Discharge Summary ---
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 Degroot on 08/03/21. Patient became tachycardic and hypotensive with development of a left chest hematoma requiring return to the OR for washout on 08/04/21. She was found to have a large amount of clot and a small arterial bleed from inferior portion of the pec major. A APRIL drain was placed. Patient received 1u PRBCs. Patient was discharged home on 08/07/21. Patient woke this morning with bleeding noted from her left breast. She noted an increased amount of bloody output from her APRIL drain with passage of clots - emptied 10 times at home as well as soaked dressings. Patient endorses feeling weak, fatigued, dizziness with positional changes and ESPINO Upon arrival to the ER patient was noted to be pale and mildly hypotensive. Moderate hematoma present of the left breast. General Surgery was consulted for surgical management. Patient is to proceed to the OR for hematoma evacuation and control of bleeding. ER Course: Cefepime, Daptomycin, Dilaudid, Zofran, NSS Principal Diagnosis Breast Hematoma Discharge Exam PHYSICAL EXAM General Appearance: WDWN in NAD who is A&O x 3 HEENT: Head is normocephalic/atraumatic; Hearing grossly intact; Mucous membranes moist Neck: Supple; Trachea midline; Neg JVD Heart: RRR with no M/G/R Lungs: CTA in all lung jacobs bilaterally; Respirations unlabored; Neg accessory muscle use Chest: APRIL drain present with minimal output Abdomen: Soft, non-tender, non-distended; Positive BS x 4 quadrants Extremities: Neg cyanosis or edema Neurological: Speech clear; Gross motor/sensory function intact; Neg focal neurologic deficits Psychiatric: Appropriate mood/affect Skin: Normal Color; Warm/Dry Discharge Data Allergies Allergy/AdvReac Type Severity Reaction Status Date / Time ibuprofen Allergy Severe Anaphylaxis Verified 08/25/21 14:11 clavulanic acid Allergy Intermediate Hives Verified 08/25/21 14:11 Sulfa (Sulfonamide Allergy Intermediate HIVES Verified 08/25/21 14:11 Antibiotics) sulfamethoxazole Allergy Intermediate HIVES Verified 08/25/21 14:11 trimethoprim Allergy Intermediate HIVES Verified 08/25/21 14:11 metformin Allergy Mild Diarrhea Verified 08/25/21 14:11 Penicillins Allergy Mild Rash Verified 08/25/21 14:11 Consultations 08/19/21 19:13 ED Decision to Admit Stat 08/20/21 16:43 Consult Lung Nodule Program Routine Procedures Performed Operation Date: 08/19/21 20:15 Actual Procedures p Evacuation Hematoma Left Chest Wall(Left) - Junaid Oviedo MD, FACS Ordered Studies Chest X-Ray 08/19/21 15:49 XR chest 1V portable HISTORY: 51 years-old Female SEPSIS acute sepsis with recent breast surgery COMPARISON: Chest radiograph 08/05/2021 TECHNIQUE: Portable upright AP view the chest FINDINGS: Cardiac mediastinal and hilar silhouettes are within normal limits. No pneumothorax, pleural effusion, overt pulmonary edema or airspace consolidation. Azygos lobe and fissure. Haziness of the left hemithorax is likely secondary to overlying soft tissue. Surgical drainage catheter left chest wall. Questioned avascular necrosis of the right humeral head. Degenerative changes of the shoulders and spine. IMPRESSION: 1. The lungs appear clear. 2. Surgical drainage catheter of the left chest wall. ACT 112: Negative or not required by law. The above report was generated using voice recognition software. It may contain grammatical, syntax or spelling errors. Electronically signed by: Genaro Ivan M.D. 08/19/2021 4:14 PM Chest X-Ray 08/20/21 08:15 SINGLE VIEW CHEST CLINICAL HISTORY: Sepsis. FINDINGS: An AP, portable, upright chest radiograph is compared to study dated 08/19/2021. The cardiomediastinal silhouette is unremarkable. An accessory azygous fissure is incidentally noted. The lungs and pleural spaces are clear. No pneumothorax is seen. The bony thorax is grossly intact. Surgical drains are noted in the left chest wall. IMPRESSION: No active disease in the chest. ACT 112: Negative or not required by law. Electronically signed by: Eamon Arevalo M.D. 08/20/2021 8:27 AM Chest CTA 08/20/21 09:10 CT ANGIOGRAM OF THE CHEST CLINICAL HISTORY: Atypical chest pain. Dyspnea. COMPARISON STUDY: Chest x-ray dated 08/20/2021. TECHNIQUE: Following the IV administration of 115 cc of Optiray 320, CT angiogram of the chest was performed from the upper abdomen to the thoracic inlet utilizing the pulmonary embolus protocol. Images are reviewed in the axial, sagittal, and coronal planes. 3-D MIPS images are created and assessed. IV contrast was administered without complication. A dose lowering technique was utilized adhering to the principles of ALARA. CT DOSE: 505.17 mGy.cm FINDINGS: Thyroid: Imaged portions of the thyroid gland are normal in size and attenuation. Thoracic aorta: The thoracic aorta is normal in caliber and demonstrates standard 3-vessel arch anatomy. No dissection is seen. Pulmonary vasculature: The pulmonary trunk is mildly dilated measuring 3.3 cm in diameter. This suggests pulmonary artery hypertension. There are no filling defects identified in main, lobar, or segmental pulmonary branches to suggest pulmonary embolus. Heart: The heart is top normal in size and without pericardial effusion. There are coronary artery calcifications. Lungs and pleural spaces: There is no lobar consolidation dr pleural effusion. Dependent atelectasis is seen at the lung bases. An accessory azygous fissure is incidentally noted. There is a 4 mm left upper lobe pulmonary nodule seen on image #178. A 3 mm pulmonary nodule in the lingula is seen on image #132. A 6 mm right upper lobe pulmonary nodule is seen on image #208. Diffuse peribronchial thickening is observed. Minimal patchy airspace opacities are seen in the right upper and right middle lobes. Mediastinum: There are calcified mediastinal lymph nodes. No adenopathy is seen. Huong: There are calcified hilar lymph nodes. No adenopathy is seen. Axillae: There is no axillary lymphadenopathy. Upper abdomen: There is a tiny hiatal hernia. Partially visualized upper abdominal viscera is otherwise within normal limits. Skeletal structures: The skeletal structures appear osteopenic. Arthritic change is noted in the shoulders. No lytic or blastic bony lesions are seen. Soft tissues: Dermal thickening is noted in the chest wall and there is evidence of bilateral mastectomy. Surgical drains are present within the left chest wall. Foci of subcutaneous gas are present within the ventral chest wall, and there is mild infiltration of the left pectoralis muscle. No organized fluid collection is identified. IMPRESSION: 1. There is no evidence of pulmonary embolus in the main, lobar, or segmental pulmonary arteries. 2. Minimal patchy opacities in the right upper and right middle lobe may represent a mild infectious/inflammatory pneumonitis. Clinical correlation will be required. 3. Surgical drains are present within the left chest wall. No organized fluid collection is identified. 4. Induration of the left pectoralis muscle and foci of soft tissue gas within the chest wall are likely due to recent surgery. Clinical correlation will be required. 5. There are least 3 pulmonary nodules measure up to 6 mm. These are pathologically indeterminant and follow-up is recommended based on the Fleischner criteria below. 6. Diffuse peribronchial thickening suggests bronchitis/reactive airway disease. Clinical correlation will be required. Please refer to below summary of Fleischner criteria recommendations for follow- up of incidental CT nodules (Dawna Quintanilla, Guidelines for management of small pulmonary nodules detected on CT scans: A statement from the Fleischner Society, Radiology 237: [phone].) SOLID NODULES Solitary nodule size: <6 mm * low risk patients: no follow-up needed * high risk patients: optional CT at 12 months Solitary nodule size: 6-8 mm * low risk patients: follow-up at 6-12 months, then consider further follow-up at 18-24 months * high risk patients: initial follow-up CT at 6-12 months and then at 18-24 months if no change Solitary nodule size: >8 mm * either low or high risk patients - consider follow-up CT at 3 months, and/or CT-PET, and/or biopsy Multiple nodules size: <6 mm * low risk patients: no routine follow-up * high risk patients: optional CT at 12 months Multiple nodules size: 6-8 mm * low risk patients: follow-up at 3-6 months, then consider further follow-up at 18-24 months * high risk patients: follow-up at 3-6 months, then at 18-24 months if no change Multiple nodules size: >8 mm * low risk patients: follow-up at 3-6 months, then consider further follow-up at 18-24 months * high risk patients: follow-up at 3-6 months, then at 18-24 months if no change Note: newly detected indeterminate nodule in persons 35 years of age or older. * low risk patients: minimal or absent history of smoking and/or other known risk factors * high risk patients: history of smoking or of other known risk factors (e.g. first degree relative with lung cancer, or exposure to asbestos, radon, uranium) * if a nodule up to 8 mm is partly solid or is ground glass further follow-up is required after 24 months to exclude possible slow growing adenocarcinoma (KEENA) SUBSOLID NODULES Solitary pure ground-glass nodule * nodule size <6 mm - no CT follow-up required * nodule size >=6 mm - follow-up CT at 6-12 months, then every 2 years until 5 years Solitary part-solid nodule * nodule size <6 mm - no CT follow-up required * nodule size >=6 mm - follow-up CT at 3-6 months. If unchanged, and solid component remains <6 mm, then annual follow-up for 5 years Multiple subsolid nodules * nodule size <6 mm - follow-up CT at 3-6 months, consider further follow-up at 2 and 4 years if stable * nodule size >=6 mm - follow-up CT at 3-6 months, subsequent management based on the most suspicious nodule(s) ACT 112: Negative or not required by law. Electronically signed by: Eamon Arevalo M.D. 08/20/2021 1:07 PM Hospital Course (1) Acute blood loss anemia: 51 yo female with DCIS s/p right mastectomy and left mastectomy with axillary dissection performed on 08/03/[address] Degroot presenting with left chest wall hematoma and acute blood loss anemia. Increase in bloody output from the right APRIL drain since this AM. Patient with Hgb of 7.7 on arrival, symptomatic anemia with dizziness, SOB, ESPINO. Blood transfusion x 1 unit started in the ER. Lactic 2.6 --> 1.7 after IVF - Patient is now S/P evacuation of the L chest wall hematoma on 08/[address] Oviedo -- A large amount of clot removed - 2L. Arterial bleed identified from possible collateral of either the intercostal or pectoralis major s/p suture ligation. - S/P transfusion x 2 - Hgb 8.4 and remaining stable and asymptomatic - Last admission was given Venofer x 3 - WBC was elevated on admission and likely reactive but now WNL - was given Abx pre-operatively but no signs of infection at this time but should be monitored for development - Recommend to hold ASA until follow-up lab work or cleared by surgery - recommend repeat CBC in about a week through family doctor (2) S/P bilateral mastectomy: - As above (3) Pulmonary nodules: CTA IMPRESSION: 1. There is no evidence of pulmonary embolus in the main, lobar, or segmental pulmonary arteries. 2. Minimal patchy opacities in the right upper and right middle lobe may represent a mild infectious/inflammatory pneumonitis. Clinical correlation will be required. 3. Surgical drains are present within the left chest wall. No organized fluid collection is identified. 4. Induration of the left pectoralis muscle and foci of soft tissue gas within the chest wall are likely due to recent surgery. Clinical correlation will be required. 5. There are least 3 pulmonary nodules measure up to 6 mm. These are pa thologically indeterminant and follow-up is recommended based on the Fleischner criteria below. 6. Diffuse peribronchial thickening suggests bronchitis/reactive airway disease. Clinical correlation will be required. Given size would recommend repeat CT in 3-6 months to monitor for growth/changes (4) Diabetes: - Chronic; poorly controlled with A1c of 12.9 on 04 August - Will continue home regimen with close follow-up with family doctor and may benefit from establishment with petroleum supply specialist (5) Hypothyroidism: - Chronic -- TSH last admission and this one shows overtreatment of thyroid --> Decreased to 37.5mg daily and recommend for repeat TSH in 4-6 weeks with further adjustments as needed (6) Asthma: - Chronic as reported although patient denies any history of such? - No SOB, cough or wheeze at present -Continue Albuterol as needed; Fluticasone was added her and can continue on D/C if beneficial - May be worth repeat pulmonary function testing to further evaluate (7) Chronic depression: - Chronic - Continue Paroxetine (8) Hypertension: - Chronic. Blood pressure borderline low upon arrival. Has improved with IVF and blood transfusion - Recommend holding Losartan until follow-up to see how it is running - Denies any further lightheadedness/dizziness (9) Hyperlipidemia: - Chronic - Continue Lovastatin 40mg po HS, zetia 10mg AM (10) B12 deficiency: - B12 is low normal; may benefit from continued supplementation - Has F/U with new PCP on the - Has F/U with Gen Surgery Total Time Total Time Spent Total Time Spent (In Minutes): Spent greater than 30 minutes preparing patient for discharge. This includes discussion with patient/family, assessment, intervention, medication reconciliation, and coordination of care. Discharge Plan Discharge Items Patient Disposition: Home - Self-Care Reason For Visit: BREAST HEMATOMA, BLEEDING Discharge Diagnosis: Breast Hematoma/Bleeding Activity: Per Instructions section Non-emergency contact: Primary Care Provider and Surgeon Call non-emergency contact if: you have any medication questions, your symptoms worsen and you have a fever Follow-up/Referrals: Vashti Mi DO [Primary Care Provider] - 08/31/21 1:00 pm Edvin Degroot DO [Physician] - (In 1 week, please call if the office hasn't already called you tomorrow) Diet: Carb Consistent or DM2 Addtl Attending Provider Instructions: Acute Blood Loss and Breast Hematoma after Mastectomy: - You were admitted due to bleeding into the chest wall after your mastectomy. You went for surgery to have this hematoma removed and it appears an artery was bleeding. You also required a blood transfusion to bring up your blood counts (hemoglobin) - Your hemoglobin is currently 8.4 which you have been in the 8-9s recently. Recommend this be rechecked in about a week through your family doctor - Would recommend holding your aspirin for now until you have replete blood counts and follow-up with your surgeon - No strenuous activity or lifting hands above head - plan to follow-up with Dr. Degroot in the next week Lung Nodules: - You had a CAT scan of the chest while here. It did find some pulmonary nodules. - A lot of times these are benign but would recommend a repeat CAT scan in 3-6 months to check for any changes in size of these Diabetes: - Recommend to continue to monitor your sugars and work with your family doctor to continue to obtain better control Thyroid: - Your TSH (thyroid hormone) was checked and was low on multiple checks. The plan would be to have a lower dose of your Synthroid and recheck your thyroid hormone in 4-6 weeks - Your Synthroid was decreased to 37.5 mcg daily Asthma: - Continue albuterol as needed for shortness of breath or wheezing - You had another inhaler added called Fluticasone to use daily. We can continue this as well and can discuss with your family doctor - Would recommend getting pulmonary function tests to help determine how severe your asthma is Blood Pressure: - Your blood pressure has been low normal in the hospital and we have been holding your blood pressure medication. Recommend to continue to hold them and have your blood pressure checked during your family doctor appointment and likely can resume it after that if blood pressure is running high B12: - Your B12 is 472 which is normal but low normal. You may benefit from daily supplementation to bring these stores a bit higher which can help with energy and some of the numbness/tingling in the legs Addtl Medical Imaging Technologist Provider Instructions: If drainage is less than 30 cc for 3 days, you can call to have the drain removed Pending Studies at Discharge: No Stand-Alone Forms: [facility], Smoking Cessation Medications and DC Order Prescriptions: New levothyroxine [Synthroid] 25 mcg Tablet 37.5 mcg PO DAILYBB 30 Days Qty: 45 RF: 0 Arnuity Ellipta 100 mcg/actuation Blister With Device 1 inh inhalation DAILY 30 Days Qty: 30 RF: 0 cyanocobalamin (vitamin B-12) 500 mcg Tablet 1,000 mcg PO QAM 30 Days Qty: 60 RF: 0 Continued albuterol sulfate 2.5 mg /3 mL (0.083 %) solution for nebulization 2.5 mg inhalation Q4H PRN (Reason: short of breath) RF: 0 loratadine 10 mg capsule 10 mg PO QAM RF: 0 paroxetine HCl 10 mg tablet 10 mg PO QAM RF: 0 paroxetine HCl 40 mg tablet 40 mg PO QAM RF: 0 lovastatin 40 mg tablet 40 mg PO HS RF: 0 pantoprazole 40 mg tablet,delayed release (DR/EC) 40 mg PO QAM RF: 0 ropinirole 0.5 mg tablet 0.5 mg PO HS RF: 0 montelukast 10 mg tablet 10 mg PO HS RF: 0 losartan 100 mg tablet 100 mg PO QAM RF: 0 Hold Instructions: ON HOLD FROM [facility] insulin lispro [Humalog KwikPen Insulin] 100 unit/mL insulin pen 15 unit SUBCUT TIDWMEAL RF: 0 ezetimibe 10 mg tablet 10 mg PO QAM RF: 0 pregabalin 150 mg capsule 150 mg PO TID RF: 0 Tradjenta 5 mg tablet 5 mg PO QAM RF: 0 albuterol sulfate 90 mcg/actuation Hfa Aerosol Inhaler 2 puff INHALATION QID PRN (Reason: SHORT OF BREATH) RF: 0 Levemir U-100 Insulin 100 unit/mL Solution 25 unit SUBCUT QAM RF: 0 Changed oxycodone 5 mg tablet 5 - 10 mg PO Q4H PRN (Reason: Pain) 3 Days Qty: 18 RF: 0 Discontinued aspirin 81 mg tablet,delayed release (DR/EC) 81 mg PO QAM RF: 0 levothyroxine 50 mcg tablet 50 mcg PO QAM RF: 0 Discharge Orders: Discharge Order (Routine); Ordered 08/21/21 Ordered By: Anastasiia Galdamez Admission Data Admit Date/Time: 08/19/21 21:22 Attending Provider: Ruben Munoz Admit Provider: Celeste Ramirez Primary Care Provider: Vashti Mi Other Providers: Salbador Craven Other Interventions: Discharge Summary Assessment (RN) Last Done: 08/21/21 14:01 Supervising Physician Co-Signing Physician Notes Attending note: patient seen and examined with Anastasiia Galdamez PA-C. I agree with her discharge summary. I personally reviewed the labs and imaging findings. patient doing well, bleeding appears to be stopped, pain is controlled she has follow up with Dr. Degroot - Hematoma as complication of surgery, bleeding has stopped, Hb stable, pain controlled eating and drinking well, no issues breathing follow up with Dr. Degroot Coding Level of Care Code D/C DAY MANAGEMENT >30 MINS Diagnoses Acute blood loss anemia D62 S/P bilateral mastectomy Z90.13 Diabetes E11.9 Hypothyroidism E03.9 Asthma J45.909 Chronic depression F32.9 Hypertension I10 Hyperlipidemia E78.5 Pulmonary nodules R91.8 B12 deficiency E53.8
== END 2021-08-21 14:23 | disposition home or self-care (01) | DRG 908 ==
LOC: ED 15:11 → ASU 21:16 → 2N 21:22 → SUATTDRO 21:22